=== PATIENT | female | born 1940 | race Caucasian/White ===

== ENCOUNTER 2016-11-28 10:59 | Inpatient (IN) ==
[2016-11-28] MEDS ORDERED: 0.9 % Sodium Chloride 1,000 ML IVC ONE (11:13)
[2016-11-28] MEDS ORDERED: Ondansetron 4 MG/2 ML VIAL IVP ONE (11:13)
[2016-11-28] MEDS ORDERED: *HR* HYDROmorphone (PF) 1 MG/ML SYRINGE IVP ONE (11:31)
--- NOTE | 2016-11-28 11:43 | Emergency Department Note ---
Disposition Clinical Impression: Enteritis, Neutropenic fever Disposition: Admitted As Inpatient Referrals: Rene Jacob Jr, MD [Primary Care Provider] - Forms: Work/School Release, ED Satisfaction Letter Time of Disposition: 13:02 General Adult HPI - General Chief complaint: ED General Medical Stated complaint: Dehydration- [facility] Time Seen by Provider: 11/28/16 11:09 Source: patient Limitations: no limitations Nursing Notes Reviewed: Yes Vital Signs Reviewed: Yes - History of Present Illness HPI Narrative: 76 year old female present to the ED with complaints of fever and LLQ abdoinal pain. Letha sates that she has panceratic cancer and was at the cancer center today with increaed weakness and nasuea with vomitting for the past few days. She staets that she had a fever of 101F at home and that she also only has on kidney and it is on the left side. Patient states that she presented simliary a few years ago with she had a kidney infection. Letha staes taht pain is located in the LLQ and that it radites in the michael on the left/right side. Ptient states that she was sent from the cancer cener for hydratio ntherapy and admission. Pain Scale: 8 - Related Data Home Medications Medication Instructions Recorded Confirmed Aspirin Enteric Coated [Aspirin EC] 81 mg PO DAILY 07/15/15 11/28/16 Levothyroxine [Synthroid] 100 mcg PO DAILY 07/15/15 11/28/16 Diltiazem CD (24hr) [Cardizem CD] 120 mg PO DAILY 10/30/16 11/28/16 Insulin ASPART [Novolog Flexpen] 0 unit SQ TIDWM PRN 10/30/16 11/28/16 Metoprolol Succinate 200 mg PO DAILY 10/30/16 11/28/16 Lipase/Protease/Amylase [Creon Dr 1 each PO TID 11/21/16 11/28/16 24,000 Units Capsule] Previous Rx's Medication Instructions Recorded Magic Mouthwash [Magic Mouthwash 10 ml PO QID PRN #240 ml 10/30/16 BLM] Ondansetron [Zofran] 4 mg PO Q8HR #90 tablet 10/30/16 Prochlorperazine Maleate 10 mg PO Q8HR PRN #90 tablet 08/15/17 [Compazine] Omeprazole 20 mg PO BID #60 tablet. 10/31/16 Diphenoxylate/Atropine [Lomotil 1 each PO TID PRN #90 tablet 11/01/16 2.5 mg/0.025 mg] HydrOXYzine 10 mg PO TID #30 tablet 11/02/16 Furosemide [Lasix] 20 mg PO DAILY PRN #30 tablet 11/16/16 OxyCODONE Immed Rel [Roxicodone 5 5 mg PO DAILY PRN #30 tablet 11/16/16 MG] Allergies Allergy/AdvReac Type Severity Reaction Status Date / Time duloxetine Allergy Intermediate Nausea Verified 11/28/16 11:08 Constitutional: Reports: fever, chills, weakness. Denies: weight change Eyes: Denies: eye pain, eye discharge, vision change ENT ED: Denies: ear pain, throat pain, dental pain, hearing loss, epistaxis, congestion, dysphagia Cardiovascular: Denies: chest pain, palpitations, dyspnea on exertion, edema, syncope Respiratory: Denies: cough, dyspnea, wheezes, hemoptysis, stridor Gastrointestinal: Reports: abdominal pain, nausea, vomiting. Denies: diarrhea, constipation, hematemesis, melena, hematochezia Genitourinary: Denies: dysuria, frequency, hematuria, discharge Musculoskeletal: Denies: back pain, neck pain, arthralgia, myalgia Integumentary: Denies: rash, abrasion, lesions Neurological: Denies: headache, weakness, numbness, paresthesias, confusion, abnormal gait, vertigo Psychiatric: Denies: anxiety, depression, suicidal thoughts, homicidal thoughts , auditory hallucinations, visual hallucinations Endocrine: Denies: fatigue Hematological/Lymphatic: Denies: easy bleeding, easy bruising Allergic/Immunologic: Denies: facial swelling, urticaria Past Medical History - Past Medical History Medical history: Reports: arthritis, atrial fibrillation, cancer, diabetes, GERD , hyperlipidemia, hypertension, myocardial infarction, thyroid disease Surgical history: Reports: non-contributory Psychiatric history: Reports: no psych history - Social History Smoking Status: Never smoker Smokeless Tobacco Status: No Alcohol use: Reports: none Drug use: Reports: none Physical Exam - General Limitations: no limitations General appearance: alert, in no apparent distress, cachectic - Head Head exam: atraumatic, normocephalic, normal inspection - Eye Eye exam: Present: normal appearance, PERRL, EOMI - Expanded Eye Exam Pupils: Left: reactive - ENT ENT exam: normal exam, normal oropharynx, mucous membranes moist - Expanded ENT Exam External ear exam: Present: normal external inspection Mouth exam: Present: normal external inspection Teeth exam: Present: normal inspection Throat exam: Present: normal inspection - Neck Neck exam: Present: normal inspection, full ROM, trachea midline - Chest Chest inspection: Present: normal inspection, symmetric chest wall rise - Respiratory Respiratory exam: Present: normal lung sounds bilaterally - Cardiovascular Cardiovascular exam: Present: regular rate, normal rhythm, normal heart sounds - Abdominal Exam Abdominal exam: Present: soft, tenderness, normal bowel sounds. Absent: Non- Tender, distention, guarding, rebound, rigidity, Todd's sign, Rovsing's sign, tenderness at McBurney's Point Abdominal tenderness: Present: LLQ, moderate - Extremities Exam Extremities exam: Present: normal inspection, full ROM. Absent: tenderness, pedal edema - Expanded Upper Extremity Exam Shoulder exam: Present: normal inspection, full ROM Arm exam: Present: normal inspection, full ROM Elbow exam: Present: normal inspection, full ROM Forearm/Wrist exam: Present: normal inspection, full ROM Hand exam: Present: normal inspection, full ROM Vascular exam: Normal: capillary refill, radial pulse - Expanded Lower Extremity Exam Hip/Pelvis exam: Present: normal inspection, full ROM Upper leg exam: Present: normal inspection, full ROM Knee exam: Present: normal inspection, full ROM Lower leg exam: Present: normal inspection, full ROM Ankle exam: Present: normal inspection, full ROM Foot/toe exam: Present: normal inspection, full ROM Neurovascular/Tendon exam: Absent: motor deficit, sensory deficit, tendon deficit - Back Exam Back exam: Present: normal inspection, full ROM. Absent: tenderness - Neurological Exam Neurological exam: Present: alert, oriented X3 - Expanded Neurological Exam Patient oriented to: Present: person, place, time Coma Scale Eye Opening: Spontaneous Coma Scale Motor Response: Obeys Commands Coma Scale Verbal Response: Oriented Coma Scale Total: 15 - Psychiatric Psychiatric exam: Present: normal affect, normal mood - Skin Skin exam: Present: warm, dry, intact, normal color Course Course Narrative: we will do abdominal pain workup in addittion to r/o sepsis and IVF/dilaudid/ zofran for relief. noncotnrast CT due to solitary kidney - Reevaluation(s) Reevaluation #1: updated patient on results. WE will admit to medicine, cipro/flagyl therapy. she adds to the hitory stating that she has had diarrhea for the pat 3-4 days as well. Time: 13:02 - Consultations Consultation #1: discussed case wtih Dr Calzada and he accepts patinet to his service. Time: 13:02 Vital Signs Temperature 97.7 F 11/28/16 11:05 Pulse Rate 89 11/28/16 11:05 Respiratory Rate 14 11/28/16 11:05 Blood Pressure 117/57 11/28/16 11:05 O2 Sat by Pulse Oximetry 98 11/28/16 11:05 Temperature 97.7 F 11/28/16 11:05 Pulse Rate 83 11/28/16 12:41 Respiratory Rate 17 11/28/16 12:41 Blood Pressure 119/57 11/28/16 12:41 O2 Sat by Pulse Oximetry 99 11/28/16 12:41 Oxygen Delivery Oxygen Delivery Nasal Cannula Medical Decision Making - Lab Data Result diagrams: 11/28/16 11:35 11/28/16 11:35 Lab Results 11/28/16 11/28/16 11/28/16 Range/Units 11:35 11:35 11:35 WBC 2.5 L D (4.3-11.1) K/mcL RBC 2.93 L (3.82-4.97) M/mcL Hgb 9.4 L (11.5-15.4) g/dL Hct 27.3 L (35.3-44.9) % MCV 93.2 (83.0-100.0) fL MCH 32.1 (28.0-33.3) pg MCHC 34.4 (31.6-35.5) g/dL RDW 13.6 (11.5-14.5) % Plt Count 194 D (140-400) K/mcL MPV 9.6 (9.4-12.4) fL Seg Neutrophils % 26.0 % Band Neutrophils % 6.0 H (0-4) % Lymphocytes % 60.0 % Monocytes % 6.0 % Metamyelocytes % 2.0 H (0) % Neutrophils # 0.8 L (1.6-8.9) K/mcL Lymphocytes # 1.5 (0.6-4.6) K/mcL Monocytes # 0.2 (0.0-1.3) K/mcL Nucleated RBCs/100 WBC 3.6 H (0) /100 WBC Reactive Lymphocytes Present A (Not Present) Toxic Granulation Present A (Not Present) Dohle Bodies Present A (Not Present) Platelet Estimate Normal (Normal) PT 14.4 H (9.4-12.1) Seconds INR 1.3 APTT 26.4 (26.0-36.0) Seconds Sodium 126 L (136-145) mEq/L Potassium 3.4 L (3.5-4.5) mEq/L Chloride 96 L (98-109) mEq/L Carbon Dioxide 23 (19-29) mEq/L BUN 16 (7-20) mg/dL Creatinine 0.75 (0.57-1.11) mg/dL Est GFR ( Amer) > 60 (> 60) Est GFR (Non-Af Amer) > 60 (> 60) BUN/Creatinine Ratio 21 (6-26) Glucose 153 H (70-99) mg/dL Calculated Osmolality 266 L (280-300) Lactic Acid (0.5-2.2) mmol/L Calcium 7.9 L (8.6-10.8) mg/dL Total Bilirubin 0.9 (0.2-1.2) mg/dL Direct Bilirubin 0.7 H (0.0-0.5) mg/dL Indirect Bilirubin 0.2 (0.0-1.2) mg/dL AST 45 H (5-34) Units/L ALT 49 (0-55) Units/L Alkaline Phosphatase 108 (38-126) Units/L Troponin I (0-0.03) ng/mL Serum Total Protein 4.9 L (6.0-8.3) g/dL Albumin 1.8 L (3.5-5.0) g/dL Globulin 3.1 (2.4-3.5) g/dL Albumin/Globulin Ratio 0.6 L (1.1-2.2) Amylase 8 L (25-125) Units/L Lipase < 10 (8-78) Units/L 11/28/16 11/28/16 Range/Units 11:35 11:35 WBC (4.3-11.1) K/mcL RBC (3.82-4.97) M/mcL Hgb (11.5-15.4) g/dL Hct (35.3-44.9) % MCV (83.0-100.0) fL MCH (28.0-33.3) pg MCHC (31.6-35.5) g/dL RDW (11.5-14.5) % Plt Count (140-400) K/mcL MPV (9.4-12.4) fL Seg Neutrophils % % Band Neutrophils % (0-4) % Lymphocytes % % Monocytes % % Metamyelocytes % (0) % Neutrophils # (1.6-8.9) K/mcL Lymphocytes # (0.6-4.6) K/mcL Monocytes # (0.0-1.3) K/mcL Nucleated RBCs/100 WBC (0) /100 WBC Reactive Lymphocytes (Not Present) Toxic Granulation (Not Present) Dohle Bodies (Not Present) Platelet Estimate (Normal) PT (9.4-12.1) Seconds INR APTT (26.0-36.0) Seconds Sodium (136-145) mEq/L Potassium (3.5-4.5) mEq/L Chloride (98-109) mEq/L Carbon Dioxide (19-29) mEq/L BUN (7-20) mg/dL Creatinine (0.57-1.11) mg/dL Est GFR ( Amer) (> 60) Est GFR (Non-Af Amer) (> 60) BUN/Creatinine Ratio (6-26) Glucose (70-99) mg/dL Calculated Osmolality (280-300) Lactic Acid 1.3 (0.5-2.2) mmol/L Calcium (8.6-10.8) mg/dL Total Bilirubin (0.2-1.2) mg/dL Direct Bilirubin (0.0-0.5) mg/dL Indirect Bilirubin (0.0-1.2) mg/dL AST (5-34) Units/L ALT (0-55) Units/L Alkaline Phosphatase (38-126) Units/L Troponin I 0.00 (0-0.03) ng/mL Serum Total Protein (6.0-8.3) g/dL Albumin (3.5-5.0) g/dL Globulin (2.4-3.5) g/dL Albumin/Globulin Ratio (1.1-2.2) Amylase (25-125) Units/L Lipase (8-78) Units/L - EKG Data EKG #1 EKG attestation: Yes I reviewed and interpreted this EKG. EKG results narrative: atrial fibrillation rate controlled at 90. NO STEMI. no old ekg. 1123
[2016-11-28 11:47] LABS: Hematocrit 27.3 % (35.3-44.9); Hemoglobin 9.4 g/dL (11.5-15.4); Mean Corpuscular HGB Conc 34.4 g/dL (31.6-35.5); Mean Corpuscular Hemoglobin 32.1 pg (28.0-33.3); Mean Corpuscular Volume 93.2 fL (83.0-100.0); Mean Platelet Volume 9.6 fL (9.4-12.4); Nucleated Red Blood Cells 3.6 /100 WBC (0); Platelet Count 194 K/mcL (140-400); Red Blood Count 2.93 M/mcL (3.82-4.97); Red Cell Distribution Width 13.6 % (11.5-14.5)
[2016-11-28 11:54] LABS: INR 1.3; Prothrombin Time 14.4 Seconds (9.4-12.1)
[2016-11-28 11:57] LABS: Activated Partial Thrombo Time 26.4 Seconds (26.0-36.0)
[2016-11-28 12:03] LABS: Alanine Aminotransferase 49 Units/L (0-55); Albumin/Globulin Ratio 0.6 (1.1-2.2); Alkaline Phosphatase 108 Units/L (38-126); Amylase 8 Units/L (25-125); Aspartate Amino Transferase 45 Units/L (5-34); BUN/Creatinine Ratio 21 (6-26); Bilirubin,Direct 0.7 mg/dL (0.0-0.5); Bilirubin,Indirect 0.2 mg/dL (0.0-1.2); Bilirubin,Total 0.9 mg/dL (0.2-1.2); Blood Urea Nitrogen 16 mg/dL (7-20); Calcium 7.9 mg/dL (8.6-10.8); Carbon Dioxide 23 mEq/L (19-29); Chloride 96 mEq/L (98-109); Globulin 3.1 g/dL (2.4-3.5); Glucose 153 mg/dL (70-99); Osmolality,Calculated 266 (280-300); Potassium 3.4 mEq/L (3.5-4.5); Sodium 126 mEq/L (136-145); Total Protein 4.9 g/dL (6.0-8.3); eGFR For African Americans > 60 (> 60); eGFR For Non-African Americans > 60 (> 60)
[2016-11-28 12:04] LABS: Albumin 1.8 g/dL (3.5-5.0); Lipase < 10 Units/L (8-78)
[2016-11-28] MEDS ORDERED: MetroNIDAZOLE 500 MG/100 ML 500 MG/100 ML BAG IVPB ONE (12:13)
[2016-11-28 12:38] LABS: Lymphocytes # 1.5 K/mcL (0.6-4.6); Monocytes # 0.2 K/mcL (0.0-1.3); Neutrophils # 0.8 K/mcL (1.6-8.9)
[2016-11-28 12:39] LABS: Reactive Lymphocytes Present (Not Present)
[2016-11-28 12:40] LABS: Toxic Granulation Present (Not Present)
[2016-11-28 12:41] LABS: Dohle Bodies Present (Not Present); Platelet Estimate Normal (Normal)
[2016-11-28] MEDS ORDERED: Acetaminophen 325 MG TABLET PO PRN (15:02)
[2016-11-28] MEDS ORDERED: *HR* HYDROmorphone (PF) 1 MG/ML SYRINGE IVP PRN (15:02)
[2016-11-28] MEDS ORDERED: Naloxone 0.4 MG/ML INJ IVP PRN (15:02)
[2016-11-28] MEDS ORDERED: Diphenoxylate/Atropine 1 TAB TABLET PO PRN (15:09)
[2016-11-28] MEDS ORDERED: Magic Mouthwash 10 ML UD Cup PO PRN (15:09)
[2016-11-28] MEDS ORDERED: Furosemide 20 MG/2 ML VIAL IVP ONE (15:12)
[2016-11-28] MEDS ORDERED: *HR* Dextrose 50 % in Water (Syg) 50 ML SYRINGE IVP PRN (15:21)
[2016-11-28] MEDS ORDERED: Dextrose Gel 15 GM PO PRN ×2 (15:21)
[2016-11-28] MEDS ORDERED: D5% in Water 1,000 ML IVC PRN (15:21)
--- NOTE | 2016-11-28 15:27 | Internal Med History&Physical ---
<Alfonso Navas - Last Filed: 11/28/16 16:16> Date of Encounter: 11/28/16 Time of Encounter: 14:00 Assessment and Plan (1) Enteritis Current visit: Yes Status: Acute Patient presents with diagnosis of enteritis-related ileus. Patient reports several episodes of diarrhea. CT of the abdomen/pelvis without contrast today she is mildly dilated loops of small bowel within the proximal jejunum in the left mid abdomen with mild perienteric stranding. No discrete transition point is identified. Findings favor an ileus related to enteritis rather than small bowel obstruction. Patient administered IV Flagyl and IV ciprofloxacin in the ED. We will continue IV ciprofloxacin 400 mg every 12 and IV Flagyl 500 mg every 8. 0.9 NS @ 75 mL/HR. Patient to be nothing by mouth except for medications with diet to be advanced as tolerated. Stair-step pain medications for pain management. IVP Zofran every 6 when necessary for nausea and vomiting. C. diff toxin ordered. Follow-up labs to monitor infection status. Will monitor patient's I&O and daily weight. (2) Nausea & vomiting Current visit: Yes Status: Acute Patient presents with acute nausea and vomiting related to current enteritis. IVP Zofran every 6 when necessary ordered. Monitor I&O and daily weight. Patient to be nothing by mouth except medications with diet to be advanced as tolerated. Qualifiers: Vomiting type: cyclical vomiting Vomiting Intractability: non-intractable Qualified Code(s): G43.A0 - Cyclical vomiting, not intractable (3) Atrial fibrillation Current visit: Yes Status: Chronic Patient presents with history of chronic atrial fibrillation. On examination, patient is currently in A. fib without RVR. We will continue patient's by mouth Cardizem. Patient placed on continuous cardiac telemetry. Qualifiers: Atrial fibrillation type: chronic Qualified Code(s): I48.2 - Chronic atrial fibrillation (4) Diabetes Current visit: Yes Status: Chronic Patient presents with history of chronic diabetes that she reports as controlled with oral antihyperglycemic medications. Will hold patient's medications and administer low-dose correction insulin sliding scale and hypoglycemia protocol. Blood glucose monitoring before meals at bedtime. A1c ordered. Qualifiers: Diabetes mellitus type: type 2 Diabetes mellitus complication status: without complication Diabetes mellitus intermodal customer service insulin use: without intermodal customer service use Qualified Code(s): E11.9 - Type 2 diabetes mellitus without complications (5) GERD (gastroesophageal reflux disease) Current visit: Yes Status: Chronic Patient presents with history of chronic gastroesophageal reflux disease. IVP Zofran every 6 when necessary and IVP Protonix 40 mg twice a day ordered. Qualifiers: Esophagitis presence: esophagitis presence not specified Qualified Code(s) : K21.9 - Gastro-esophageal reflux disease without esophagitis (6) HTN (hypertension) Current visit: Yes Status: Chronic Patient presents with history of chronic hypertension. Will monitor patient and VS and continue patient's metoprolol. Qualifiers: Hypertension type: essential hypertension Qualified Code(s): I10 - Essential (primary) hypertension (7) Thyroid disease Current visit: Yes Status: Chronic Patient presents with history of thyroid disease and removal of nodules from thyroid previously. Will continue patient's Synthroid. (8) Pancreatic cancer Current visit: Yes Status: Chronic Patient presents with history of pancreatic cancer. Patient is currently followed by [facility]. Qualifiers: Pancreatic malignancy location: unspecified Qualified Code(s): C25.9 - Malignant neoplasm of pancreas, unspecified (9) DVT prophylaxis Current visit: Yes Status: Chronic Patient to be placed on DVT prophylaxis due to current admission protocol and bedrest status. Heparin 5000 units SQ every 12 hours. Internal Medicine - H&P: HPI Chief complaint: Abdominal/Left Flank Pain Admitted From: Emergency Dept Plans for Post Hospital Care: Home History of present illness: Ms. Workman is a 76 year old female with medical history of arthritis, atrial fibrillation, pancreatic cancer, diabetes controlled with oral anti- hyperglycemics, GERD, HLD, HTN, and thyroid disease presents from the ED with chief complaint of abdominal pain and left-sided flank pain. Patient reports she was at the cancer Center today with increased weakness due to nausea and vomiting for the past several days. Patient states she had similar symptoms when she had a kidney infection previously. Patient reports fever of 101 at home, chills, weakness. Patient denies chest pain, cough, dyspnea, unusual bleeding, headache, numbness, tingling, dyspnea, changes in vision, presyncope, or syncope. On admission, patient's vital signs include temperature of 90 7.7F , heart rate of 89 bpm, respiratory rate 14, BP of 117/57, and SPO2 of 98% on 2 L via nasal cannula. Patient's unusual labs include Hgb of 9.4 and HCT of 27.3, down from 10.3 and 28.8 on 10/30/16. Other abnormal findings included sodium of 126, potassium of 3.4, chloride of 96, glucose of 153, calcium of 7.9, direct bilirubin of 0.7, AST of 45, serum total protein of 4.9, albumin of 1.8, albumin /globulin ratio 0.6, and amylase of 8. Patient's initial lactic acid was 1.3 and troponin 0.00. On examination, patient's HR is in atrial fibrillation w/o RVR, lungs are clear bilaterally, and there is 2+ pitting edema of the bilateral LEs. Patient is hemodynamically stable and reports no acute distress with the exception of weakness and abdominal pain. Patient states the Zofran and Dilaudid helped to ease her pain. Information taken from patient, chart review, and previous medical records and imaging. Ms. Workman is at high risk for further morbidity based on current symptoms and risk factors and will be placed as inpatient. Time spent with patient greater than 40 minutes. Past Med Surg Social Fam HX - Past Medical History Source: patient, old records reviewed Medical history: arthritis, atrial fibrillation, cancer, diabetes, GERD, hyperlipidemia, hypertension, myocardial infarction, thyroid disease Psychiatric history: no psych history - Past Surgical History Surgical History: hysterectomy (Total), other (Nephrectomy of right kidney, Thyroid nodule removal) - Social History Smoking Status: Never smoker Smokeless Tobacco Status: No Alcohol use: none Drug use: none Current living situation: Home Activity Level: Independent ambulation Recent Out of Country Travel Within the Last 8 Weeks: No Exposure or Possible Exposure to Illness During Travel: No - Family History Father Race: Family Member Ethnicity: Non- Living Status: Age at : 66 Cause of : Blood clot following surgery Hx Family Endocrine Disorder: Yes (DM) Mother Race: Family Member Ethnicity: Non- Living Status: Age at : 84 Hx Family Cardiac Disorders: Yes (Heart murmur) Hx Family Neurologic Disorders: Yes (Alzheimer's disease) Brother Race: Family Member Ethnicity: Non- Living Status: Still Living Hx Family Cardiac Disorders: Yes (CAD, pacemaker) Sister Race: Family Member Ethnicity: Non- Living Status: Age at : 66 Cause of : Ovarian cancer Hx Family Cancer: Yes (Ovarian) Internal Medicine - H&P: Meds Aspirin Enteric Coated [Aspirin EC] 81 mg PO DAILY 07/15/15 [History] Levothyroxine [Synthroid] 100 mcg PO DAILY 07/15/15 [History] Diltiazem CD (24hr) [Cardizem CD] 120 mg PO DAILY 10/30/16 [History] Insulin ASPART [Novolog Flexpen] 0 unit SQ TIDWM PRN 10/30/16 [History] Magic Mouthwash [Magic Mouthwash BLM] 10 ml PO QID PRN #240 ml 10/30/16 [Rx] Metoprolol Succinate 200 mg PO DAILY 10/30/16 [History] Ondansetron [Zofran] 4 mg PO Q8HR #90 tablet 10/30/16 [Rx] Prochlorperazine Maleate [Compazine] 10 mg PO Q8HR PRN #90 tablet 10/30/16 [Rx] Omeprazole 20 mg PO BID #60 tablet. 10/31/16 [Rx] Diphenoxylate/Atropine [Lomotil 2.5 mg/0.025 mg] 1 each PO TID PRN #90 tablet [Rx] HydrOXYzine 10 mg PO TID #30 tablet 11/02/16 [Rx] Furosemide [Lasix] 20 mg PO DAILY PRN #30 tablet 11/16/16 [Rx] OxyCODONE Immed Rel [Roxicodone 5 MG] 5 mg PO DAILY PRN #30 tablet 11/16/16 [Rx] Lipase/Protease/Amylase [Jodi Goff 24,000 Units Capsule] 1 each PO TID 11/21/16 [ History] 3 Allergy/AdvReac Type Severity Reaction Status Date / Time duloxetine Allergy Intermediate Nausea Verified 11/28/16 11:08 All Systems PM: A 10-system review of systems was performed and is negative for pertinent findings except as documented above in the HPI. - Constitutional Constitutional: as per HPI, fever(s), weakness, no chills, no night sweats - EENT Eyes: no change in vision, no discharge, no pain, no photophobia Ears: no ear discharge, no ear pain, no tinnitus Nose, mouth and throat: no dysphagia, no nasal discharge, no neck pain, no sore throat - Breasts Breasts: as per HPI - Cardiovascular Cardiovascular ROS IM: as per HPI, irregular heart rhythm - Respiratory Respiratory: no cough, no dyspnea, no wheezing, no excessive phlegm production - Gastrointestinal Gastrointestinal: as per HPI, abdominal pain, diarrhea, nausea, vomiting - Genitourinary Genitourinary: as per HPI, flank pain (Left), no change in urinary stream, no dysuria, no hematuria Menstruation: as per HPI, post hysterectomy - Musculoskeletal Musculoskeletal ROS IM: no numbness, no tingling - Integumentary Integumentary IM: no rash, no unusual bruising - Neurological Neurological ROS: no confusion, no convulsions, no focal weakness, no numbness, no tingling, no tremor(s) - Psychiatric Psychiatric: as per HPI - Endocrine Endocrine IM: as per HPI - Hematologic/Lymphatic Hematologic/Lymphatic: no easy bruising - Allergic/Immunologic Allergic/Immunologic: as per HPI - Constitutional Vitals: Temp Pulse Resp BP Pulse Ox 97.7 F 83 18 104/49 99 11/28/16 11:05 11/28/16 12:41 11/28/16 14:03 11/28/16 14:03 11/28/16 12:41 General appearance: Present: cooperative, mild distress, A&O X 3, pleasant, obese, answers questions appropriately - Head Head exam: Present: atraumatic, normocephalic - Eye Eye exam: Present: PERRL, conjuntiva pink, sclera anicteric Pupils: Present: PERRL - ENT ENT exam: Present: normal exam, normal external ear exam - Neck Neck exam general surgery: Present: normal inspection, supple, trachea midline. Absent: lymphadenopathy - Respiratory Respiratory exam: Present: CTAB. Absent: accessory muscle use, rales, rhonchi, wheezes - Cardiovascular Cardiovascular exam: Present: irregular rhythm - GI/Abdominal GI/Abdominal exam: Present: diminished bowel sounds, normal bowel sounds, soft, tenderness - Rectal Rectal exam: Present: deferred - Additional comments: exam deferred. - Extremities Exam Extremities exam: Present: warm, radial pulses palpable and symmetrical. Absent : calf tenderness, cyanotic, pedal edema - Back Exam Back exam: Present: normal inspection - Neurological Exam Neurological exam: Present: CN II-XII intact, oriented X3, no focal deficits. Absent: pronater drift, facial droop, speech deficit - Psychiatric Psychiatric exam: Present: normal affect, normal mood - Skin Skin exam: Present: dry, intact Internal Med - H&P Results - Labs CBC & Chem 7: 11/28/16 11:35 11/28/16 11:35 - EKG Data Prior EKG available for review: no EKG comments: 11/28/16 15:55 EKG dated 11/28/16 shows atrial fibrillation with borderline right axis deviation and incomplete right bundle branch block. <Jeyson Calzada - Last Filed: 11/28/16 18:31> Date of Encounter: 11/28/16 Internal Medicine - H&P: HPI History of present illness: Ms. Workman is a 76 year old female All Systems PM: A 10-system review of systems was performed and is negative for pertinent findings except as documented above in the HPI. - Constitutional Vitals: Temp Pulse Resp BP Pulse Ox 97.7 F 100 16 123/69 97 11/28/16 16:11 11/28/16 16:11 11/28/16 16:11 11/28/16 16:11 11/28/16 16:11 Internal Med - H&P Results - Labs CBC & Chem 7: 11/28/16 11:35 11/28/16 11:35 - Attending Attestation I personally interviewed and examined this pt. I agree with the findings, assessment and plan of MEHRAN Navas. Suspect infectious colitis and favor Cipro/Flagyl. Doubt ischemic colitis. No hx XRT. I discussed the case at length with pt and family. I did increase her pain meds. Closely monitor.
[2016-11-28] MEDS: 0.9 % Sodium Chloride 1,000 ML IVC SCH (15:28)
[2016-11-28] MEDS ORDERED: Potassium Chloride 20 MEQ, Lidocaine 1% 2 ML in D5% in Water 250 ML IVPB ONE (16:21)
[2016-11-28] MEDS: *HR* HYDROcodone/Acet 5/325 mg TABLET PO PRN (16:55)
[2016-11-28] MEDS: *HR* Heparin 5,000 UNIT/ML VIAL SQ SCH (16:55)
[2016-11-28] MEDS: MetroNIDAZOLE 500 MG/100 ML 500 MG/100 ML BAG IVPB SCH (17:06)
[2016-11-28] MEDS: *HR* HYDROmorphone (PF) 1 MG/ML SYRINGE IVP PRN ×2 (18:39→21:00)
[2016-11-28] MEDS: Insulin LISPRO 300 UNITS/3 ML VIAL SQ SCH (18:40)
[2016-11-28 20:05] LABS: Bilirubin,Urine Negative (Negative); Blood,Urine Negative (Negative); Clarity,Urine Cloudy (Clear); Color,Urine Yellow (Yellow); Glucose,Urine (UA) Normal (Normal); Ketones,Urine Negative (Negative); Leukocyte Esterase,Urine Negative (Negative); Nitrite,Urine Positive (Negative); Protein,Urine Negative (Neg-Trace); Specific Gravity,Urine 1.015 (1.010-1.025); Urobilinogen,Urine Normal (Normal)
[2016-11-28 20:07] LABS: Bacteria,Urine Many per hpf (None-Few); Hyaline Casts,Urine None Seen per lpf (None-Few); RBC,Urine 0-3 per hpf (0-3); Squamous Epithelial Cell,Urine Many per lpf (None-Few)
[2016-11-28] MEDS: Pantoprazole 40 MG VIAL IVP SCH (20:20)
[2016-11-28] MEDS ORDERED: Insulin LISPRO 300 UNITS/3 ML VIAL SQ SCH (21:00)
[2016-11-29] MEDS: MetroNIDAZOLE 500 MG/100 ML 500 MG/100 ML BAG IVPB SCH ×4 (00:09→23:31)
[2016-11-29] MEDS: *HR* HYDROmorphone (PF) 1 MG/ML SYRINGE IVP PRN ×8 (00:12→18:22)
[2016-11-29] MEDS: Ondansetron 4 MG/2 ML VIAL IVP PRN ×2 (00:12→08:57)
[2016-11-29 05:04] LABS: INR 1.5
[2016-11-29 05:06] LABS: Hematocrit 26.4 % (35.3-44.9); Hemoglobin 9.2 g/dL (11.5-15.4); Immature Platelets 3.6 % (1.1-6.1); Mean Corpuscular HGB Conc 34.8 g/dL (31.6-35.5); Mean Corpuscular Hemoglobin 32.9 pg (28.0-33.3); Mean Corpuscular Volume 94.3 fL (83.0-100.0); Mean Platelet Volume 10.3 fL (9.4-12.4); Monocytes # 0.5 K/mcL (0.0-1.3); Nucleated Red Blood Cells 1.3 /100 WBC (0); Platelet Count 190 K/mcL (140-400); Red Cell Distribution Width 13.8 % (11.5-14.5)
[2016-11-29 05:07] LABS: Activated Partial Thrombo Time 24.7 Seconds (26.0-36.0)
[2016-11-29] MEDS: *HR* Heparin 5,000 UNIT/ML VIAL SQ SCH ×2 (05:42→18:22)
[2016-11-29 06:18] LABS: Lymphocytes # 1.7 K/mcL (0.6-4.6); Neutrophils # 1.7 K/mcL (1.6-8.9); Platelet Estimate Normal (Normal)
[2016-11-29 06:32] LABS: Alanine Aminotransferase 55 Units/L (0-55); Albumin/Globulin Ratio 0.6 (1.1-2.2); Alkaline Phosphatase 109 Units/L (38-126); Aspartate Amino Transferase 53 Units/L (5-34); BUN/Creatinine Ratio 18 (6-26); Bilirubin,Total 0.8 mg/dL (0.2-1.2); Blood Urea Nitrogen 14 mg/dL (7-20); Calcium 7.8 mg/dL (8.6-10.8); Carbon Dioxide 20 mEq/L (19-29); Chloride 99 mEq/L (98-109); Chol/HDL Ratio 4.3 (0-4.9); Cholesterol 103 mg/dL (< 200); Globulin 2.8 g/dL (2.4-3.5); Glucose 120 mg/dL (70-99); HDL Cholesterol 24 mg/dL (40-59); LDL Cholesterol,Calculated 56 mg/dL (0-99); Osmolality,Calculated 266 (280-300); Potassium 3.1 mEq/L (3.5-4.5); Sodium 127 mEq/L (136-145); Total Protein 4.5 g/dL (6.0-8.3); Triglycerides 115 mg/dL (< 150); eGFR For African Americans > 60 (> 60); eGFR For Non-African Americans > 60 (> 60)
[2016-11-29 06:38] LABS: Albumin 1.7 g/dL (3.5-5.0)
[2016-11-29] MEDS: Diltiazem CD (24hr) 120 MG CAPSULE PO SCH (07:47)
[2016-11-29] MEDS: Aspirin Enteric Coated 81 MG Tablet PO SCH (07:47)
[2016-11-29] MEDS: Pantoprazole 40 MG VIAL IVP SCH ×2 (07:48→19:45)
[2016-11-29] MEDS: 0.9 % Sodium Chloride 1,000 ML IVC SCH (07:54)
[2016-11-29] MEDS: Insulin LISPRO 300 UNITS/3 ML VIAL SQ SCH ×5 (07:55→19:39)
[2016-11-29] MEDS ORDERED: Potassium Chloride 40 MEQ, Lidocaine 1% 2 ML in D5% in Water 500 ML IVPB ONE (08:39)
[2016-11-29] MEDS ORDERED: 0.9 % Sodium Chloride 1,000 ML IVC SCH ×2 (08:40→16:15)
[2016-11-29] MEDS ORDERED: Metoprolol XL (24 HR) Succ 50 MG TAB.ER.24H PO SCH ×2 (09:00→16:40)
[2016-11-29] MEDS: Magnesium Sulfate 2 GM in D5% in Water 100 ML IVPB SCH ×2 (10:11→11:51)
--- NOTE | 2016-11-29 12:06 | Electrocardiograph Report ---
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
--- NOTE | 2016-11-29 16:25 | Internal Med Progress Note ---
Date of Encounter: 11/29/16 Time of Encounter: 10:10 - Assessment and plan (1) Hyponatremia Current Visit: Yes Status: Acute Assessment and plan: serum osm: 265.7 f/u urine osm and urine Na low serum osm hyponatremia in the setting of pancreatic ca, hypoalbuminema, and volume overload nephrology consultation requested, patient may benefit from 3%NS which will be started after nephrology evaluation and transfer of the patient to a higher acuity floor pt to be transferred to the ICU for closely monitoring continue to check sodium levels q6h patient currently at baseline mental status, will continue to closely monitory (2) Enteritis Current Visit: Yes Status: Acute Assessment and plan: continue IV abx will start clear liquid diet and advance as tolerated pt reports of improvement in abd discomfort from previous day (3) Electrolyte abnormality Current Visit: Yes Status: Acute Assessment and plan: Hypomagnesemia and Hypokalemia Mg and K supplemented will closely monitor electrolytes and replace as needed (4) Diabetes Current Visit: Yes Status: Chronic Assessment and plan: continue ss insulin algorithm monitor FS and BG accuchecks q4h while NPO and ACHS once diet is resumed Qualifiers: Diabetes mellitus type: type 2 Diabetes mellitus complication status: without complication Diabetes mellitus usp insulin use: without usp use Qualified Code(s): E11.9 - Type 2 diabetes mellitus without complications (5) HLD (hyperlipidemia) Current Visit: Yes Status: Chronic Qualifiers: Hyperlipidemia type: pure hypercholesterolemia Qualified Code(s): E78.00 - Pure hypercholesterolemia, unspecified; E78.0 - Pure hypercholesterolemia (6) HTN (hypertension) Current Visit: Yes Status: Chronic Assessment and plan: Noted to be hypotensive will hold antihypertensive medications if SBP<100 will closely monitor BP Qualifiers: Hypertension type: essential hypertension Qualified Code(s): I10 - Essential (primary) hypertension (7) DVT prophylaxis Current Visit: Yes Status: Chronic Assessment and plan: Heparin SQ (8) Pancreatic cancer Current Visit: Yes Status: Chronic Assessment and plan: pt currently undergoing chemotherapy, last chemo session was on November pt to resume treatment as outpatient Qualifiers: Pancreatic malignancy location: unspecified Qualified Code(s): C25.9 - Malignant neoplasm of pancreas, unspecified - Time Spent With Patient Greater than 35 minutes - Subjective Interval history: Patient is a 76y/o female with PMH of pancreatic cancer recently undergoing chemotherapy, last chemotherapy was on November. She is admitted for diffuse abdominal pain secondary to Enteritis. She is started on empiric IV abx and bowel rest. She was also found to have hyponatremia with b/l LE pitting edema. Patient was evaluated by me numerous times throughout the day. She continues to have lose stools (negative for C-diff) and reports of feeling weak and tired. Her IV fluids were discontinued due to the worsening edema and given low serum osm with low albumin, there was concern for SIADH. Her fluids were discontinued , however she continued to have worsening hyponatremia despite fluid restriction. Nephrology is consulted for hyponatremia. Patient may require 3% NS given current Na levels, therefore she will be transferred to the ICU for close monitoring. - Constitutional Vitals: Temp Pulse Resp BP Pulse Ox 97.3 F L 89 16 96/62 97 11/29/16 10:44 11/29/16 10:44 11/29/16 10:44 11/29/16 10:44 11/29/16 10:44 General appearance: Present: cooperative, A&O X 3 (frail appearing elderly female), pleasant, obese, answers questions appropriately - Head Head exam: Present: atraumatic, normocephalic - Eye Eye exam: Present: conjuntiva pink, sclera anicteric - Respiratory Respiratory exam: Absent: respiratory distress, wheezes - Cardiovascular Cardiovascular exam: Present: RRR, +S1, +S2. Absent: diastolic murmur, gallop, rubs, systolic murmur - GI/Abdominal GI/Abdominal exam: Present: normal bowel sounds, soft, no peritoneal signs. Absent: distended, tenderness - Extremities Exam Extremities exam: Present: warm, radial pulses palpable and symmetrical (3+ pitting edema in bilateral lower extremities) - Neurological Exam Neurological exam: Present: alert, oriented X3 Internal Medicine: Result - Labs CBC & Chem 7: 11/29/16 04:50 11/29/16 13:50 Labs: Short CBC 11/29/16 Range/Units 04:50 WBC 3.9 L D (4.3-11.1) K/mcL Hgb 9.2 L (11.5-15.4) g/dL Hct 26.4 L (35.3-44.9) % Plt Count 190 (140-400) K/mcL Neutrophils # 1.7 (1.6-8.9) K/mcL BMP 11/29/16 11/29/16 04:50 13:50 Sodium 127 L 125 L Potassium 3.1 L Chloride 99 Carbon Dioxide 20 BUN 14 Creatinine 0.79 Glucose 120 H Calcium 7.8 L Liver Function 11/29/16 Range/Units 04:50 Total Bilirubin 0.8 (0.2-1.2) mg/dL AST 53 H (5-34) Units/L ALT 55 (0-55) Units/L Alkaline Phosphatase 109 (38-126) Units/L Albumin 1.7 L (3.5-5.0) g/dL Urine 11/28/16 Range/Units 20:00 Urine Color Yellow (Yellow) Urine Clarity Cloudy A (Clear) Urine pH 7.0 (5.0-8.0) pH Units Ur Specific [place] 1.015 (1.010-1.025) Urine Protein Negative (Neg-Trace) mg/dL Urine Glucose (UA) Normal (Normal) mg/dL - ABG Interpretation ABG results: PT/INR, D-dimer PT 16.0 Seconds (9.4-12.1) H 11/29/16 04:50 Consult Discharge Plan - Plan Referrals: Rene Jacob Jr, MD [Primary Care Provider] -
--- NOTE | 2016-11-29 18:02 | Nephrology Consult Note ---
Date of Encounter: 11/30/16 Time of Encounter: 17:59 Assessment and Plan (1) Hyponatremia Current Visit: Yes Status: Acute Suspect multifactorial etiology of the hyponatremia. I examined her in the ICU and she was not in extremis, so will hold off on 3% saline. Continue fluid restriction of 1.2L. Check urine 'lytes, TSH, AM Cortisol UA had a dilute SG, so there is likely an SIADH component as well. Will add NaCl 1gm po tid starting tonight. Goal correction is 6-8mEq in the first 24hr. Check PNa q2hr x3. May add Tolvaptan at some point as well. 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 Thank you for consulting the [facility]. (2) Hypomagnesemia Current Visit: Yes Status: Acute Agree with Mag sulfate 2gm IV. Suspect low d/t recent 'lyte wasting from chemo. Checking Mag in AM. (3) Nausea & vomiting Current Visit: Yes Status: Acute S/p recent Chemo Qualifiers: Vomiting type: cyclical vomiting Vomiting Intractability: non-intractable Qualified Code(s): G43.A0 - Cyclical vomiting, not intractable (4) Pancreatic cancer Current Visit: Yes Status: Chronic Likely contributing to SIADH Qualifiers: Pancreatic malignancy location: unspecified Qualified Code(s): C25.9 - Malignant neoplasm of pancreas, unspecified History of Present Illness - Reason for Consult Consult date: 11/29/16 hyponatremia Requesting physician: Nina Crow - Chief Complaint Hyponatremia - History of Present Illness Chiqui Workman is a very pleasant 76 y/o WF with a pmh of Pancreatic Ca s/p recent chemo, N/V and presented with findings of hyponatremia. Nephrology was consulted for hyponatremiia after the PNa started to fall with 09% IVF. There was concern that she may have developed AMS and we discussed 3% saline; however , I saw and examined her in the ICU after finishing my clinic. She and her was discussed that she has a hx of hypothyroidism but no overt gout in her toes. She said that up to about 2 weeks ago she developed cyclical and severe nausea even with sips of water. She said that she thinks she was able to keep her thyroid medication down. She did not affirm any hx of seizures. 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 She follows with [facility]. She denied any FHx of ESRD. Past Med Surg Social Fam HX - Past Medical History Medical history: arthritis, atrial fibrillation, cancer, diabetes, GERD, hyperlipidemia, hypertension, myocardial infarction, thyroid disease Psychiatric history: no psych history - Past Surgical History Surgical History: hysterectomy (Total), other (Nephrectomy of right kidney, Thyroid nodule removal) - Social History Smoking Status: Never smoker Smokeless Tobacco Status: No Alcohol use: none Drug use: none - Family History Father Race: Family Member Ethnicity: Non- Living Status: Age at : 66 Cause of : Blood clot following surgery Hx Family Endocrine Disorder: Yes (DM) Mother Race: Family Member Ethnicity: Non- Living Status: Age at : 84 Hx Family Cardiac Disorders: Yes (Heart murmur) Hx Family Neurologic Disorders: Yes (Alzheimer's disease) Brother Race: Family Member Ethnicity: Non- Living Status: Still Living Hx Family Cardiac Disorders: Yes (CAD, pacemaker) Sister Race: Family Member Ethnicity: Non- Living Status: Age at : 66 Cause of : Ovarian cancer Hx Family Cancer: Yes (Ovarian) Medications and Allergies Aspirin Enteric Coated [Aspirin EC] 81 mg PO DAILY 07/15/15 [History] Levothyroxine [Synthroid] 100 mcg PO DAILY 07/15/15 [History] Diltiazem CD (24hr) [Cardizem CD] 120 mg PO DAILY 10/30/16 [History] Insulin ASPART [Novolog Flexpen] 0 unit SQ TIDWM PRN 10/30/16 [History] Magic Mouthwash [Magic Mouthwash BLM] 10 ml PO QID PRN #240 ml 10/30/16 [Rx] Metoprolol Succinate 200 mg PO DAILY 10/30/16 [History] Ondansetron [Zofran] 4 mg PO Q8HR #90 tablet 10/30/16 [Rx] Prochlorperazine Maleate [Compazine] 10 mg PO Q8HR PRN #90 tablet 10/30/16 [Rx] Omeprazole 20 mg PO BID #60 tablet. 10/31/16 [Rx] Diphenoxylate/Atropine [Lomotil 2.5 mg/0.025 mg] 1 each PO TID PRN #90 tablet [Rx] HydrOXYzine 10 mg PO TID #30 tablet 11/02/16 [Rx] Furosemide [Lasix] 20 mg PO DAILY PRN #30 tablet 11/16/16 [Rx] OxyCODONE Immed Rel [Roxicodone 5 MG] 5 mg PO DAILY PRN #30 tablet 11/16/16 [Rx] Lipase/Protease/Amylase [Jodi Goff 24,000 Units Capsule] 1 each PO TID 11/21/16 [ History] 3 Allergy/AdvReac Type Severity Reaction Status Date / Time duloxetine Allergy Intermediate Nausea Verified 11/28/16 11:08 Review of Systems All Systems: reviewed and no additional remarkable complaints except as stated Exam - Vital Signs Vital signs: Initial Vital Signs Temp Pulse Resp BP Pulse Ox 97.7 F 89 14 117/57 98 11/28/16 11:05 11/28/16 11:05 11/28/16 11:05 11/28/16 11:05 11/28/16 11:05 Vital Signs - Last 8 Hours Temp Pulse Resp BP Pulse Ox 11/29/16 10:44 97.3 F L 89 16 96/62 97 Intake and Output 11/29/16 11/29/16 11/29/16 07:59 15:59 23:59 Intake Total 1300 / 1300 200 / 200 Output Total 0 / 0 Balance 1300 / 1300 200 / 200 Intake: IV Fluids 1300 / 1300 200 / 200 0.9 % Sodium Chloride 1, 1000 / 1000 000 ML @ 75 mls/hr IVC . [id number] [facility] Rx#: [id number] Cipro Premix 400 MG/200 200 / 200 ML 400 mg In 200 ml @ 200 mls/hr IVPB Q12H [facility] Rx# :[id number] Magnesium Sulfate 2 GM In 100 / 100 Dextrose 5% 100 ML @ 100 mls/hr IVPB Q4H [facility] Rx#: [id number] Flagyl Premix 500 MG/100 100 / 100 100 / 100 ML 500 mg In 100 ml @ 100 mls/hr IVPB Q8HR [facility] Rx# :[id number] Oral 0 / 0 0 / 0 Output: Urine 0 / 0 Other: Meal NPO Percent of Meal Consumed 0% Stool Size Moderate Stool Consistency loose liquid Stool Color Brown # Bowel Movements 3 Blood Glucose* 134 183 - General Appearance General appearance: cachectic, chronically ill, fatigue, frail EENT: mucous membranes dry Neck: supple Respiratory: clear Cardiology: edema (1+ pretibial pitting edema at the sock line b/l), regular rate, regular rhythm, normal S1, normal S2 Gastrointestinal: normoactive bowel sounds, no tenderness, no guarding Integumentary: no rash, warm and dry Neurologic: no focal deficit, no asterixis, alert and oriented x3 Musculoskeletal: no deformities, no erythema Psychiatric: mood/affect appropriate, cooperative Results - Lab Results 11/29/16 04:50 11/29/16 22:30 Most recent lab results Calcium 7.8 mg/dL (8.6-10.8) L 11/29/16 04:50 Magnesium 1.0 mg/dL (1.6-2.6) L 11/29/16 04:50 I reviewed the above data/info, progress notes, labs, meds, vitals, imaging Consult Discharge Plan - Plan Referrals: Rene Jacob Jr, MD [Primary Care Provider] -
[2016-11-29] MEDS: *HR* HYDROcodone/Acet 5/325 mg TABLET PO PRN (21:41)
[2016-11-29 23:01] LABS: Protein/Creatinine Ratio,Urine 0.38 mg/mg (0-0.20)
[2016-11-30] MEDS: Norepinephrine 4 MG in D5% in Water 250 ML IVC SCH ×3 (00:10→07:50)
[2016-11-30] MEDS: Insulin LISPRO 300 UNITS/3 ML VIAL SQ SCH ×7 (00:17→20:11)
[2016-11-30 04:00] LABS: Calcium 7.8 mg/dL (8.6-10.8); Magnesium 1.8 mg/dL (1.6-2.6); Phosphorous 3.2 mg/dL (2.3-4.7); Potassium 3.4 mEq/L (3.5-4.5); Uric Acid 4.7 mg/dL (2.6-6.0)
[2016-11-30 04:13] LABS: Hematocrit 25.7 % (35.3-44.9); Hemoglobin 8.7 g/dL (11.5-15.4); Mean Corpuscular HGB Conc 33.9 g/dL (31.6-35.5); Mean Corpuscular Hemoglobin 32.3 pg (28.0-33.3); Mean Corpuscular Volume 95.5 fL (83.0-100.0); Mean Platelet Volume 10.4 fL (9.4-12.4); Nucleated Red Blood Cells 0.5 /100 WBC (0); Platelet Count 203 K/mcL (140-400); Red Blood Count 2.69 M/mcL (3.82-4.97)
[2016-11-30 04:20] LABS: Thyroid Stimulating Hormone 12.101 mcIU/mL (0.350-4.840)
[2016-11-30 05:20] LABS: Eosinophils # 0.2 K/mcL (0.0-0.6); Lymphocytes # 2.7 K/mcL (0.6-4.6); Monocytes # 1.1 K/mcL (0.0-1.3)
[2016-11-30 05:21] LABS: Platelet Estimate Normal (Normal); Reactive Lymphocytes Present (Not Present); Toxic Granulation Present (Not Present)
[2016-11-30 05:22] LABS: Dohle Bodies Present (Not Present); Large Platelets Present (Not Present)
[2016-11-30 05:23] LABS: Macrocytosis Present (Not Present); Polychromasia 1+ (Not Present)
[2016-11-30] MEDS: *HR* Heparin 5,000 UNIT/ML VIAL SQ SCH ×2 (06:33→16:26)
[2016-11-30] MEDS: *HR* HYDROcodone/Acet 5/325 mg TABLET PO PRN ×3 (06:40→20:45)
[2016-11-30] MEDS: *HR* HYDROmorphone (PF) 1 MG/ML SYRINGE IVP PRN ×2 (07:50→16:10)
[2016-11-30] MEDS: Pantoprazole 40 MG VIAL IVP SCH ×2 (07:50→20:45)
[2016-11-30] MEDS: Aspirin Enteric Coated 81 MG Tablet PO SCH (07:51)
[2016-11-30] MEDS: MetroNIDAZOLE 500 MG/100 ML 500 MG/100 ML BAG IVPB SCH (07:52)
[2016-11-30] MEDS: Diltiazem CD (24hr) 120 MG CAPSULE PO SCH (07:53)
[2016-11-30] MEDS ORDERED: Metoprolol XL (24 HR) Succ 50 MG TAB.ER.24H PO SCH (09:00)
[2016-11-30] MEDS ORDERED: Sodium Phosphate 30 MMOL in 0.9 % Sodium Chloride 100 ML IVPB PRN (09:21)
[2016-11-30] MEDS ORDERED: Potassium Chloride 40 MEQ/200 ML BAG IVPB PRN (09:21)
--- NOTE | 2016-11-30 09:28 | Internal Med Progress Note ---
Date of Encounter: 11/30/16 Time of Encounter: 08:50 - Assessment and plan (1) Septic shock Current Visit: Yes Status: Acute Assessment and plan: Multifactorial, likely secondary to UTI/enteritis CT abd/pelvis reported pneumobilia with common bile dcut stent placement, new small amount of gas within the gallbladder seen Pt currently on vasopressor support Will continue Norepinephrine d/c ciprofloxacin and start Zosyn continue Flagyl f/u cultures f/u lactate level will continue ICU care GI evaluation requested given CT abd/pelvis findings will consult ICU (2) ANTHONY (acute kidney injury) Current Visit: Yes Status: Acute Assessment and plan: likely secondary to severe hypotension will hold nephrotoxic agents at this time continue to closely monitor renal function (3) Hyponatremia Current Visit: Yes Status: Acute Assessment and plan: serum osm: 265.7 f/u urine osm Nephrology on board and consultation appreciated noted to have NAGMA, will administer 1amp of bicarb continue Nacl tabs close monitoring of sodium (Na q4h) goal correction: 6-8meq in 24hours will continue to closely monitor avoid supplementing dextrose solution for electrolyte replacements (4) Enteritis Current Visit: Yes Status: Acute Assessment and plan: continue IV abx will advance to full liquid diet pt reports of improvement in abd discomfort from previous day (5) Electrolyte abnormality Current Visit: Yes Status: Acute Assessment and plan: Hypokalemia K supplemented continue to monitor electrolytes and replace as needed (6) Diabetes Current Visit: Yes Status: Chronic Assessment and plan: continue ss insulin algorithm monitor FS and BG Qualifiers: Diabetes mellitus type: type 2 Diabetes mellitus complication status: without complication Diabetes mellitus retirement insulin use: without 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 Qualified Code(s): E11.9 - Type 2 diabetes mellitus without complications (7) HLD (hyperlipidemia) Current Visit: Yes Status: Chronic Qualifiers: Hyperlipidemia type: pure hypercholesterolemia Qualified Code(s): E78.00 - Pure hypercholesterolemia, unspecified; E78.0 - Pure hypercholesterolemia (8) HTN (hypertension) Current Visit: Yes Status: Chronic Assessment and plan: currently on vasopressor support Qualifiers: Hypertension type: essential hypertension Qualified Code(s): I10 - Essential (primary) hypertension (9) DVT prophylaxis Current Visit: Yes Status: Chronic Assessment and plan: Heparin SQ (10) Pancreatic cancer Current Visit: Yes Status: Chronic Assessment and plan: pt currently undergoing chemotherapy, last chemo session was on November pt to resume treatment as outpatient Qualifiers: Pancreatic malignancy location: unspecified Qualified Code(s): C25.9 - Malignant neoplasm of pancreas, unspecified - Subjective Interval history: Patient is a 76y/o female with PMH of pancreatic cancer recently undergoing chemotherapy, last chemotherapy was on November. She is admitted for diffuse abdominal pain secondary to Enteritis. She is started on empiric IV abx and bowel rest. She was also found to have hyponatremia with b/l LE pitting edema. Patient seen and examined in the ICU. Patient is resting in bed and reports of feeling better compared to previous day. She is tolerating clear liquid diet and wishing to advance her diet. States the abd pain is improved from previous day and she has not had any BM since yesterday evening. Overnight patient was noted to become severely hypotensive requiring vasopressor support. She remains vasopressor dependent. - Constitutional Vitals: Temp Pulse Resp BP Pulse Ox 97.5 F L 65 14 93/58 98 11/30/16 08:45 11/30/16 06:15 11/30/16 06:15 11/30/16 06:15 11/30/16 06:15 General appearance: Present: cooperative, A&O X 3 (frail appearing elderly female), pleasant, obese, answers questions appropriately - Head Head exam: Present: atraumatic, normocephalic - Eye Eye exam: Present: conjuntiva pink, sclera anicteric - Respiratory Respiratory exam: Present: CTAB. Absent: respiratory distress, wheezes - Cardiovascular Cardiovascular exam: Present: RRR, +S1, +S2. Absent: diastolic murmur, gallop, rubs, systolic murmur - GI/Abdominal GI/Abdominal exam: Present: normal bowel sounds, no peritoneal signs. Absent: distended, tenderness - Extremities Exam Extremities exam: Present: warm, radial pulses palpable and symmetrical (3+ pitting edema in bilateral lower extremities) - Neurological Exam Neurological exam: Present: alert, oriented X3 - Psychiatric Psychiatric exam: Present: normal affect, normal mood Internal Medicine: Result - Labs CBC & Chem 7: 11/30/16 03:40 11/30/16 03:40 Labs: Short CBC 11/30/16 Range/Units 03:40 WBC 7.6 D (4.3-11.1) K/mcL Hgb 8.7 L (11.5-15.4) g/dL Hct 25.7 L (35.3-44.9) % Plt Count 203 (140-400) K/mcL Neutrophils # 3.0 (1.6-8.9) K/mcL BMP 11/29/16 11/29/16 11/29/16 13:50 18:54 20:35 Sodium 125 L 128 L 127 L Potassium Chloride Carbon Dioxide BUN Creatinine Glucose Calcium 11/29/16 11/30/16 22:30 03:40 Sodium 128 L 127 L Potassium 3.4 L Chloride 100 Carbon Dioxide 18 L BUN 21 H Creatinine 1.22 H D Glucose 165 H Calcium 7.8 L - ABG Interpretation ABG results: PT/INR, D-dimer PT 16.0 Seconds (9.4-12.1) H 11/29/16 04:50 Consult Discharge Plan - Plan Referrals: Rene Jacob Jr, MD [Primary Care Provider] -
--- NOTE | 2016-11-30 09:48 | Nephrology Progress Note ---
Date of Encounter: 11/30/16 Time of Encounter: 09:44 - Assessment and Plan (1) ANTHONY (acute kidney injury) Current Visit: Yes Status: Acute Secondary to shock. Should improve with blood pressure support. If it persist then we will consider further workup. (2) Electrolyte abnormality Current Visit: Yes Status: Acute Replace electrolytes as needed. (3) Enteritis Current Visit: Yes Status: Acute Per the primary team. I did speak with the primary team this morning and advise broadening her antibiotic coverage. (4) Hyponatremia Current Visit: Yes Status: Acute I recommend changing Caria solutions to 0.9. Restricting free water. Consider Lasix. This was discussed with the primary team. (5) Septic shock Current Visit: Yes Status: Acute Etiology is not completely clear at this time. This is improved with pressor support. (6) Pancreatic cancer Current Visit: Yes Status: Chronic Per primary care team. Qualifiers: Pancreatic malignancy location: unspecified Qualified Code(s): C25.9 - Malignant neoplasm of pancreas, unspecified Subjective Principal diagnosis: Hyponatremia Interval history: Patient was seen and evaluated. She denies any new symptoms. She reports that her appetite has increased slightly. She denies chest pain or shortness of breath. She only has minimal abdominal discomfort. Her review of system otherwise appears to be stable. Objective - Vital Signs Vital signs: Vital Signs Temp Pulse Resp BP Pulse Ox 11/30/16 08:45 97.5 F L 11/30/16 06:15 65 14 93/58 98 11/30/16 05:17 97.6 F 11/30/16 04:00 65 16 97/51 98 11/30/16 03:00 53 14 82/48 98 11/30/16 02:45 61 12 76/43 97 11/30/16 02:30 64 14 86/43 97 11/30/16 02:00 60 12 86/56 97 11/30/16 01:30 61 12 79/46 97 11/30/16 01:15 97.6 F 63 16 73/44 97 11/30/16 01:00 67 14 74/35 98 11/30/16 00:30 61 16 76/39 98 11/30/16 00:20 97.5 F L 11/30/16 00:00 77 14 77/47 99 11/29/16 23:00 61 12 87/47 97 11/29/16 22:00 80 12 87/69 97 11/29/16 21:00 80 20 95/49 98 11/29/16 20:43 98.1 F 11/29/16 20:00 81 16 98/54 95 11/29/16 19:00 75 18 86/46 96 11/29/16 17:56 97.5 F L 84 14 102/48 97 11/29/16 10:44 97.3 F L 89 16 96/62 97 Intake and Output 11/29/16 11/30/16 11/30/16 23:59 07:59 15:59 Intake Total 100 / 100 808 / 808 Output Total 750 / 750 250 / 250 Balance 100 / 100 58 / 58 -250 / -250 Intake: IV Fluids 100 / 100 808 / 808 Levophed 4 MG In Dextrose 508 / 508 5% 250 ML @ 2 MCG/MIN 7. 62 mls/hr IVC CONT [facility] Rx #:[id number] Cipro Premix 400 MG/200 200 / 200 ML 400 mg In 200 ml @ 200 mls/hr IVPB Q12H [facility] Rx# :[id number] Flagyl Premix 500 MG/100 100 / 100 100 / 100 ML 500 mg In 100 ml @ 100 mls/hr IVPB Q8HR [facility] Rx# :[id number] Oral 0 / 0 Output: Catheter 750 / 750 250 / 250 Other: Weight 81 kg Blood Glucose* 134 169 214 Patient Weight 11/30/16 23:59 Weight 81 kg - General Appearance General appearance: Present: well-developed, well-nourished, obese EENT: Present: ATNC Neck: Present: supple Respiratory: Present: clear (Anteriorly) Cardiology: Present: edema (2-3+ edema in the bilateral lower extremities.), regular rate, regular rhythm Gastrointestinal: Present: no tenderness, no guarding Integumentary: Present: warm and dry Neurologic: Present: alert and oriented x3 Musculoskeletal: Present: no cyanosis Psychiatric: Present: mood/affect appropriate - Lab 11/30/16 10:20 11/30/16 20:55 Most recent lab results Calcium 7.8 mg/dL (8.6-10.8) L 11/30/16 03:40 Phosphorus 3.2 mg/dL (2.3-4.7) 11/30/16 03:40 Magnesium 1.8 mg/dL (1.6-2.6) 11/30/16 03:40 Urine Creatinine 82 mg/dL 11/29/16 22:30 Urine Sodium 38.0 mEq/L 11/29/16 22:30 Urine Total Protein 31 mg/dL (1-14) H 11/29/16 22:30 Consult Discharge Plan - Plan Referrals: Rene Jacob Jr, MD [Primary Care Provider] -
--- NOTE | 2016-11-30 09:51 | Gastroenterology Consult Note ---
<BasilioDona bey - Last Filed: 11/30/16 11:44> Date of Encounter: 11/30/16 Time of Encounter: 09:44 - Assessment and plan (1) Pneumobilia Current Visit: Yes Status: Acute Assessment and plan: CT abdomen/pelvis showed increased retroperitoneal lymph node enlargement, pneumobilia with common bile duct stent placement, new small amount of burton within GB, midly dilated loops of small bowel within proximal jejunum in let mid abdomen with perienteric stranding. AST mildly elevated at 53. ALT, ALP, total bili, Amylase, lipase normal. Patient currently does not meet criteria for ascending cholangitis. Plan: No urgent need for ERCP at this time, as patient has no signs of ascending cholangitis, and has normal LFTs and T.Bili no concern for stent blockage at this time. Patient likely would benefit from surgical evaluation. continue current management per critical care team. (2) Enteritis Current Visit: Yes Status: Acute Assessment and plan: plan as above. (3) Septic shock Current Visit: Yes Status: Acute Assessment and plan: Etiology likely multifactorial in setting of UTI and enteritis, currently requiring Levophed Patient is on flagyl and zosyn. lactic acid last checked on 11/28 was 1.1 (4) Pancreatic cancer Current Visit: Yes Status: Chronic Assessment and plan: Patient follows with Dr. Enriquez at [facility]. Hx of pancreatic adenocarcinoma diagnosed by EUS with Biopsy, sees Dr. Lanier at [facility]. had ERCP with stent placement. started chemotherapy in October 2016 continue management per oncology. Qualifiers: Pancreatic malignancy location: unspecified Qualified Code(s): C25.9 - Malignant neoplasm of pancreas, unspecified (5) Hyponatremia Current Visit: Yes Status: Acute Assessment and plan: continue management per primary team and nephrology. - Time Spent With Patient Total time spent is greater than 50% in coordination of care (as documented) at patient's floor/unit and/or counseling patient: GI History of Present Illness - Data of Consult Patient: known to practice within the last 3 years Consult date: 11/30/16 Requesting Physician: Nina Crow MD - Consult Narrative Reason for consult: pneumobilia History of present illness: Ms. Workman is a 76 year old female with PMHx of arthritis, Afib, pancreatic cancer, DM, GERD, HLD, HTN, thyroid disease. Patient presented to the ED on 11/28 with chief complaint of abdominal pain and left sided flank pain. She was at the cancer center earlier that day with increased weakness due to nausea and intermittent vomiting for past several days. she also reports fevers, chills, and generalized weakness. she has also had decreased appetite recently and admits to having diarrhea. she denies blood in her vomit, and denies coffee ground emesis. she has had jaundice in the past, but has not noticed any jaundice recently. she states she did start chemo last month and follows with Dr. Enriquez. She had ERCP in the past with stent placement at [facility]. She is currently in ICU being treated for septic shock and hyponatremia. GI was consulted for pneumobilia seen on recent CT of abdomen/pelvis. Past Med Surg Social Fam HX - Past Medical History Medical history: arthritis, atrial fibrillation, cancer, diabetes, GERD, hyperlipidemia, hypertension, myocardial infarction, thyroid disease Psychiatric history: no psych history - Past Surgical History Surgical History: hysterectomy (Total), other (Nephrectomy of right kidney, Thyroid nodule removal) - Social History Smoking Status: Never smoker Smokeless Tobacco Status: No Alcohol use: none Drug use: none - Family History Father Race: Family Member Ethnicity: Non- Living Status: Age at : 66 Cause of : Blood clot following surgery Hx Family Endocrine Disorder: Yes (DM) Mother Race: Family Member Ethnicity: Non- Living Status: Age at : 84 Hx Family Cardiac Disorders: Yes (Heart murmur) Hx Family Neurologic Disorders: Yes (Alzheimer's disease) Brother Race: Family Member Ethnicity: Non- Living Status: Still Living Hx Family Cardiac Disorders: Yes (CAD, pacemaker) Sister Race: Family Member Ethnicity: Non- Living Status: Age at : 66 Cause of : Ovarian cancer Hx Family Cancer: Yes (Ovarian) All systems PM: reviewed and no additional remarkable complaints except as stated - Constitutional Vitals: Temp Pulse Resp BP Pulse Ox 97.5 F L 65 14 93/58 98 11/30/16 08:45 11/30/16 06:15 11/30/16 06:15 11/30/16 06:15 11/30/16 06:15 General appearance: Present: A&O X 3, pleasant, no acute distress - Head Head exam: Present: atraumatic, normocephalic - Eye Eye exam: Absent: scleral icterus - Neck Neck exam general surgery: Present: supple, trachea midline - Respiratory Respiratory exam: Present: CTAB - Cardiovascular Cardiovascular exam: Present: RRR, +S1, +S2 - GI/Abdominal GI/Abdominal exam: Present: soft, no peritoneal signs. Absent: distended Additional comments: mild epigastric tenderness. - Extremities Exam Extremities exam: Absent: cyanotic Additional comments: +2 bilateral lower extremity pitting edema. - Neurological Exam Neurological exam: Present: alert, oriented X3, no focal deficits - Psychiatric Psychiatric exam: Present: normal affect, normal mood Results - Labs CBC & Chem 7: 11/30/16 10:20 11/30/16 10:20 Labs: Last Result Calcium 7.8 mg/dL (8.6-10.8) L 11/30/16 03:40 Troponin I 0.00 ng/mL (0-0.03) 11/28/16 11:35 Triglycerides 115 mg/dL (< 150) 11/29/16 04:50 Entire Visit Hgb 8.7 g/dL (11.5-15.4) L 11/30/16 03:40 Hct 25.7 % (35.3-44.9) L 11/30/16 03:40 PT 16.0 Seconds (9.4-12.1) H 11/29/16 04:50 Total Bilirubin 0.8 mg/dL (0.2-1.2) 11/29/16 04:50 AST 53 Units/L (5-34) H 11/29/16 04:50 ALT 55 Units/L (0-55) 11/29/16 04:50 Amylase 8 Units/L (25-125) L 11/28/16 11:35 Lipase < 10 Units/L (8-78) 11/28/16 11:35 - ABG ABG results: PT/INR, D-dimer PT 16.0 Seconds (9.4-12.1) H 11/29/16 04:50 Consult Discharge Plan - Plan Referrals: Rene Jacob Jr, MD [Primary Care Provider] - <Jason Knutson - Last Filed: 11/30/16 15:39> Date of Encounter: 11/30/16 Time of Encounter: 12:00 - Time Spent With Patient Total time spent is greater than 50% in coordination of care (as documented) at patient's floor/unit and/or counseling patient: GI History of Present Illness - Data of Consult Requesting Physician: Nina Crow MD - Consult Narrative History of present illness: Ms. Workman is a 76 year old female - Constitutional Vitals: Temp Pulse Resp BP Pulse Ox 97.5 F L 82 23 96/58 96 11/30/16 12:00 11/30/16 14:00 11/30/16 14:00 11/30/16 14:00 11/30/16 14:13 Results - Labs CBC & Chem 7: 11/30/16 10:20 11/30/16 10:20 Labs: Last Result Calcium 7.8 mg/dL (8.6-10.8) L 11/30/16 10:20 Troponin I 0.00 ng/mL (0-0.03) 11/28/16 11:35 Triglycerides 115 mg/dL (< 150) 11/29/16 04:50 Entire Visit Hgb 8.9 g/dL (11.5-15.4) L 11/30/16 10:20 Hct 26.9 % (35.3-44.9) L 11/30/16 10:20 PT 16.0 Seconds (9.4-12.1) H 11/29/16 04:50 Total Bilirubin 0.8 mg/dL (0.2-1.2) 11/29/16 04:50 AST 53 Units/L (5-34) H 11/29/16 04:50 ALT 55 Units/L (0-55) 11/29/16 04:50 Amylase 8 Units/L (25-125) L 11/28/16 11:35 Lipase < 10 Units/L (8-78) 11/28/16 11:35 - ABG ABG results: PT/INR, D-dimer PT 16.0 Seconds (9.4-12.1) H 11/29/16 04:50
[2016-11-30] MEDS: Norepinephrine 4 MG in 0.9 % Sodium Chloride 250 ML IVC SCH (10:42)
[2016-11-30] MEDS: Piperacillin/Tazobactam 3.375 GM in 0.9 % Sodium Chloride Mini Bag 100 ML IVPB SCH ×3 (10:43→16:29)
[2016-11-30] MEDS ORDERED: 0.9 % Sodium Chloride 1,000 ML IVC ONE (10:47)
[2016-11-30 10:54] LABS: Hematocrit 26.9 % (35.3-44.9); Hemoglobin 8.9 g/dL (11.5-15.4); Immature Platelets 4.6 % (1.1-6.1); Mean Corpuscular HGB Conc 33.1 g/dL (31.6-35.5); Mean Corpuscular Hemoglobin 31.6 pg (28.0-33.3); Mean Corpuscular Volume 95.4 fL (83.0-100.0); Mean Platelet Volume 10.2 fL (9.4-12.4); Nucleated Red Blood Cells 0.8 /100 WBC (0); Platelet Count 250 K/mcL (140-400); Red Blood Count 2.82 M/mcL (3.82-4.97); Red Cell Distribution Width 14.3 % (11.5-14.5)
--- NOTE | 2016-11-30 10:56 | Pulmonology Consult Note ---
<Suzanne Sim - Last Filed: 11/30/16 11:22> Date of Encounter: 11/30/16 Time of Encounter: 10:30 Assessment and Plan (1) Septic shock Current Visit: Yes Status: Acute Patient stable with minimal hypotension noted. Hypotension most likely due to dehydration as the patient is very dry on physical exam. Will replete fluids and start stress dose of steroids and reevaluate. Multifactorial, likely secondary to UTI/enteritis, CT abd/pelvis reported pneumobilia with common bile duct stent placement, new small amount of gas within the gallbladder seen Pt currently on vasopressor support d/c ciprofloxacin and start Zosyn continue Flagyl f/u cultures f/u lactate level will continue ICU care GI evaluation requested given CT abd/pelvis findings (2) Hyponatremia Current Visit: Yes Status: Acute serum osm: 265.7, urine electrolytes and osm pending Nephrology consulted close monitoring of sodium (Na q4h); most likely due to dehydration. Will fluid bolus x1 liter of NaCl and reevaluate levels. (3) Pneumobilia Current Visit: Yes Status: Acute CT abdomen/pelvis showed increased retroperitoneal lymph node enlargement, pneumobilia with common bile duct stent placement, new small amount of gas within GB, mildly dilated loops of small bowel within proximal jejunum in let mid abdomen with perienteric stranding. AST mildly elevated at 53. ALT, ALP, total bili, Amylase, lipase normal. Patient currently does not meet criteria for ascending cholangitis. GI consulted. If patient is candidate for surgery she will need to be transferred to [facility] since this was where her stent placement occurred. (4) Pancreatic cancer Current Visit: Yes Status: Chronic pt currently undergoing chemotherapy, last chemo session was on November pt to resume treatment as outpatient Qualifiers: Pancreatic malignancy location: unspecified Qualified Code(s): C25.9 - Malignant neoplasm of pancreas, unspecified (5) ANTHONY (acute kidney injury) Current Visit: Yes Status: Acute Likely secondary to severe hypotension will hold nephrotoxic agents at this time continue to closely monitor renal function Nephrology has been consulted (6) Enteritis Current Visit: Yes Status: Acute continue IV abx will advance to full liquid diet GI has been consulted (7) DVT prophylaxis Current Visit: Yes Status: Chronic Heparin SQ History of Present Illness Consult date: 11/30/16 Reason for consult: other (Hypotension) Chief complaint: Dehydration/Hypotension History of present illness: Ms. Workman is a 76 year old female with medical history of arthritis, atrial fibrillation, pancreatic cancer, diabetes controlled with oral anti- hyperglycemics, GERD, HLD, HTN, and thyroid disease presents from the ED with chief complaint of abdominal pain and left-sided flank pain. Patient reports she was at the cancer Center today with increased weakness due to nausea and vomiting for the past several days. Patient states she had similar symptoms when she had a kidney infection previously. Patient reports fever of 101 at home, chills, weakness. Throughout her course in the hospital patient was noted to be hyponatemic and hypotensive. Was started on pressors and we were consulted for further management. On patient's CT abdomen air was noted in the biliary tree. GI has been consulted. She has a history of stent placement at [facility]. Past Med Surg Social Fam HX - Past Medical History Medical history: arthritis, atrial fibrillation, cancer, diabetes, GERD, hyperlipidemia, hypertension, myocardial infarction, thyroid disease Psychiatric history: no psych history - Past Surgical History Surgical History: hysterectomy (Total), other (Nephrectomy of right kidney, Thyroid nodule removal) - Social History Smoking Status: Never smoker Smokeless Tobacco Status: No Alcohol use: none Drug use: none - Family History Father Race: Family Member Ethnicity: Non- Living Status: Age at : 66 Cause of : Blood clot following surgery Hx Family Endocrine Disorder: Yes (DM) Mother Race: Family Member Ethnicity: Non- Living Status: Age at : 84 Hx Family Cardiac Disorders: Yes (Heart murmur) Hx Family Neurologic Disorders: Yes (Alzheimer's disease) Brother Race: Family Member Ethnicity: Non- Living Status: Still Living Hx Family Cardiac Disorders: Yes (CAD, pacemaker) Sister Race: Family Member Ethnicity: Non- Living Status: Age at : 66 Cause of : Ovarian cancer Hx Family Cancer: Yes (Ovarian) Medications and Allergies Aspirin Enteric Coated [Aspirin EC] 81 mg PO DAILY 07/15/15 [History] Levothyroxine [Synthroid] 100 mcg PO DAILY 07/15/15 [History] Diltiazem CD (24hr) [Cardizem CD] 120 mg PO DAILY 10/30/16 [History] Insulin ASPART [Novolog Flexpen] 0 unit SQ TIDWM PRN 10/30/16 [History] Magic Mouthwash [Magic Mouthwash BLM] 10 ml PO QID PRN #240 ml 10/30/16 [Rx] Metoprolol Succinate 200 mg PO DAILY 10/30/16 [History] Ondansetron [Zofran] 4 mg PO Q8HR #90 tablet 10/30/16 [Rx] Prochlorperazine Maleate [Compazine] 10 mg PO Q8HR PRN #90 tablet 10/30/16 [Rx] Omeprazole 20 mg PO BID #60 tablet. 10/31/16 [Rx] Diphenoxylate/Atropine [Lomotil 2.5 mg/0.025 mg] 1 each PO TID PRN #90 tablet [Rx] HydrOXYzine 10 mg PO TID #30 tablet 11/02/16 [Rx] Furosemide [Lasix] 20 mg PO DAILY PRN #30 tablet 11/16/16 [Rx] OxyCODONE Immed Rel [Roxicodone 5 MG] 5 mg PO DAILY PRN #30 tablet 11/16/16 [Rx] Lipase/Protease/Amylase [Jodi Goff 24,000 Units Capsule] 1 each PO TID 11/21/16 [ History] 3 Allergy/AdvReac Type Severity Reaction Status Date / Time duloxetine Allergy Intermediate Nausea Verified 11/28/16 11:08 All Systems: A 10-system review of systems was performed and is negative for pertinent findings except as documented above in the HPI. - Constitutional Constitutional: anorexia, fatigue, weakness - EENT Eyes: as per HPI Ears: as per HPI Nose, mouth and throat: as per HPI - Cardiovascular Cardiovascular: irregular heart rhythm, no chest pain, no dyspnea - Respiratory Respiratory: no dyspnea, no wheezing, no stridor - Gastrointestinal Gastrointestinal: abdominal pain, nausea, no diarrhea, no hematemesis, no hematochezia - Genitourinary Genitourinary: as per HPI, no hematuria, no urinary incontinence - Musculoskeletal Musculoskeletal: weakness, no abnormal gait, no numbness - Integumentary Integumentary: as per HPI - Neurological Neurological: as per HPI - Psychiatric Psychiatric: as per HPI - Endocrine Endocrine: as per HPI - Hematologic/Lymphatic Hematologic/Lymphatic: as per HPI - Allergic/Immunologic Allergic/Immunologic: as per HPI Physical Examination Vital Signs: Vital Signs, Last 4 Hours Temp Pulse Resp BP Pulse Ox 11/30/16 10:00 71 16 90/62 97 11/30/16 08:45 97.5 F L General appearance: no acute distress, alert Eyes: nonicteric ENT: oropharynx moist Neck: supple, no JVD Effort: normal Inspection: normal Auscultation: bilateral: clear Cardiovascular: regular rate and rhythm Gastrointestinal: normoactive bowel sounds, soft, tender, non-distended Integumentary: normal Extremities: no cyanosis, no clubbing Musculoskeletal: no deformities Gait: normal posture normal mental status, non-focal exam mood appropriate, affect normal Results - Laboratory Findings CBC and BMP: 11/30/16 10:20 11/30/16 10:20 PT/INR, D-dimer PT 16.0 Seconds (9.4-12.1) H 11/29/16 04:50 Abnormal lab findings: Abnormal lab results RBC 2.82 M/mcL (3.82-4.97) L 11/30/16 10:20 Hgb 8.9 g/dL (11.5-15.4) L 11/30/16 10:20 Hct 26.9 % (35.3-44.9) L 11/30/16 10:20 Band Neutrophils % 6.0 % (0-4) H 11/30/16 03:40 Metamyelocytes % 2.0 % (0) H 11/28/16 11:35 Myelocytes % 8.0 % (0) H 11/30/16 03:40 Nucleated RBCs/100 WBC 0.8 /100 WBC (0) H 11/30/16 10:20 Reactive Lymphocytes Present (Not Present) A 11/30/16 03:40 Toxic Granulation Present (Not Present) A 11/30/16 03:40 Dohle Bodies Present (Not Present) A 11/30/16 03:40 Large Platelets Present (Not Present) A 11/30/16 03:40 Polychromasia 1+ (Not Present) A 11/30/16 03:40 Macrocytosis Present (Not Present) A 11/30/16 03:40 PT 16.0 Seconds (9.4-12.1) H 11/29/16 04:50 APTT 24.7 Seconds (26.0-36.0) L 11/29/16 04:50 Sodium 127 mEq/L (136-145) L 11/30/16 03:40 Potassium 3.4 mEq/L (3.5-4.5) L 11/30/16 03:40 Carbon Dioxide 18 mEq/L (19-29) L 11/30/16 03:40 BUN 21 mg/dL (7-20) H 11/30/16 03:40 Creatinine 1.22 mg/dL (0.57-1.11) H D 11/30/16 03:40 Est GFR ( Amer) 52 (> 60) L 11/30/16 03:40 Est GFR (Non-Af Amer) 43 (> 60) L 11/30/16 03:40 Glucose 165 mg/dL (70-99) H 11/30/16 03:40 POC Glucose 214 (58-89) H 11/30/16 07:54 Calculated Osmolality 271 (280-300) L 11/30/16 03:40 Calcium 7.8 mg/dL (8.6-10.8) L 11/30/16 03:40 Direct Bilirubin 0.7 mg/dL (0.0-0.5) H 11/28/16 11:35 AST 53 Units/L (5-34) H 11/29/16 04:50 Serum Total Protein 4.5 g/dL (6.0-8.3) L 11/29/16 04:50 Albumin 1.7 g/dL (3.5-5.0) L 11/29/16 04:50 Albumin/Globulin Ratio 0.6 (1.1-2.2) L 11/29/16 04:50 Prealbumin 4.0 mg/dL (16.0-38.0) L 11/30/16 03:40 HDL Cholesterol 24 mg/dL (40-59) L 11/29/16 04:50 Amylase 8 Units/L (25-125) L 11/28/16 11:35 TSH 12.101 mcIU/mL (0.350-4.840) H 11/30/16 03:40 Urine Clarity Cloudy (Clear) A 11/28/16 20:00 Urine Nitrite Positive (Negative) A 11/28/16 20:00 Urine Microscopic WBC 3-5 per hpf (0-3) H 11/28/16 20:00 Ur Squamous Epith Cells Many per lpf (None-Few) H 11/28/16 20:00 Urine Bacteria Many per hpf (None-Few) H 11/28/16 20:00 Ur Culture Indicated? YES (NO) A 11/28/16 20:00 Protein/Creatinin Ratio 0.38 mg/mg (0-0.20) H 11/29/16 22:30 Urine Total Protein 31 mg/dL (1-14) H 11/29/16 22:30 - Microbiology Findings Microbiology Findings: Microbiology, Last 48 Hours 11/28/16 16:18 Blood Culture - Preliminary Peripheral Venipuncture No growth. 11/28/16 20:00 Urine Culture - Preliminary Urine,Clean Catch Gram Negative Abilio - Clinical Findings Intake & Output: Intake & Output 11/29/16 11/30/16 11/30/16 23:59 07:59 15:59 Intake Total 100 / 100 808 / 808 Output Total 750 / 750 250 / 250 Balance 100 / 100 58 / 58 -250 / -250 Weight 81 kg Consult Discharge Plan - Plan Referrals: Rene Jacob Jr, MD [Primary Care Provider] - <Yuniel Wilcox - Last Filed: 11/30/16 12:26> Date of Encounter: 11/30/16 All Systems: A 10-system review of systems was performed and is negative for pertinent findings except as documented above in the HPI. Physical Examination Vital Signs: Vital Signs, Last 4 Hours Temp Pulse Resp BP Pulse Ox 11/30/16 12:00 71 12 94/52 98 11/30/16 11:00 66 16 104/58 97 11/30/16 10:00 71 16 90/62 97 11/30/16 09:00 60 20 100/63 96 11/30/16 08:45 97.5 F L Results - Laboratory Findings CBC and BMP: 11/30/16 10:20 11/30/16 10:20 PT/INR, D-dimer PT 16.0 Seconds (9.4-12.1) H 11/29/16 04:50 Abnormal lab findings: Abnormal lab results RBC 2.82 M/mcL (3.82-4.97) L 11/30/16 10:20 Hgb 8.9 g/dL (11.5-15.4) L 11/30/16 10:20 Hct 26.9 % (35.3-44.9) L 11/30/16 10:20 Band Neutrophils % 8.0 % (0-4) H 11/30/16 10:20 Metamyelocytes % 2.0 % (0) H 11/30/16 10:20 Myelocytes % 6.0 % (0) H 11/30/16 10:20 Nucleated RBCs/100 WBC 0.8 /100 WBC (0) H 11/30/16 10:20 Reactive Lymphocytes Present (Not Present) A 11/30/16 03:40 Toxic Granulation Present (Not Present) A 11/30/16 10:20 Dohle Bodies Present (Not Present) A 11/30/16 10:20 Large Platelets Present (Not Present) A 11/30/16 03:40 Polychromasia 1+ (Not Present) A 11/30/16 10:20 Basophilic Stippling 1+ (Not Present) A 11/30/16 10:20 Macrocytosis Present (Not Present) A 11/30/16 03:40 PT 16.0 Seconds (9.4-12.1) H 11/29/16 04:50 APTT 24.7 Seconds (26.0-36.0) L 11/29/16 04:50 Sodium 128 mEq/L (136-145) L 11/30/16 10:20 Potassium 3.4 mEq/L (3.5-4.5) L 11/30/16 10:20 Est GFR (Non-Af Amer) 50 (> 60) L 11/30/16 10:20 Glucose 122 mg/dL (70-99) H 11/30/16 10:20 POC Glucose 214 (58-89) H 11/30/16 07:54 Calculated Osmolality 269 (280-300) L 11/30/16 10:20 Calcium 7.8 mg/dL (8.6-10.8) L 11/30/16 10:20 Direct Bilirubin 0.7 mg/dL (0.0-0.5) H 11/28/16 11:35 AST 53 Units/L (5-34) H 11/29/16 04:50 Serum Total Protein 4.5 g/dL (6.0-8.3) L 11/29/16 04:50 Albumin 1.7 g/dL (3.5-5.0) L 11/29/16 04:50 Albumin/Globulin Ratio 0.6 (1.1-2.2) L 11/29/16 04:50 Prealbumin 4.0 mg/dL (16.0-38.0) L 11/30/16 03:40 HDL Cholesterol 24 mg/dL (40-59) L 11/29/16 04:50 Amylase 8 Units/L (25-125) L 11/28/16 11:35 TSH 12.101 mcIU/mL (0.350-4.840) H 11/30/16 03:40 Free T4 0.68 ng/dl (0.70-1.48) L 11/30/16 10:20 Free T3 < 1.00 pg/mL (1.71-3.71) L 11/30/16 10:20 Urine Clarity Cloudy (Clear) A 11/28/16 20:00 Urine Nitrite Positive (Negative) A 11/28/16 20:00 Urine Microscopic WBC 3-5 per hpf (0-3) H 11/28/16 20:00 Ur Squamous Epith Cells Many per lpf (None-Few) H 11/28/16 20:00 Urine Bacteria Many per hpf (None-Few) H 11/28/16 20:00 Ur Culture Indicated? YES (NO) A 11/28/16 20:00 Protein/Creatinin Ratio 0.38 mg/mg (0-0.20) H 11/29/16 22:30 Urine Total Protein 31 mg/dL (1-14) H 11/29/16 22:30 - Microbiology Findings Microbiology Findings: Microbiology, Last 48 Hours 11/28/16 16:18 Blood Culture - Preliminary Peripheral Venipuncture No growth. 11/28/16 20:00 Urine Culture - Preliminary Urine,Clean Catch Gram Negative Abilio - Clinical Findings Intake & Output: Intake & Output 11/29/16 11/30/16 11/30/16 23:59 07:59 15:59 Intake Total 100 / 100 808 / 808 Output Total 750 / 750 250 / 250 Balance 100 / 100 58 / 58 -250 / -250 Weight 81 kg - Attending Attestation I examined this patient and my medical decision-making was reviewed with the Resident Physician. I agree with the documented findings, disposition and treatment plan as described except to the extent set forth below. Patient seen and examined. Labs, radiology, chart personally reviewed. 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 GI: Nutrition per dietary and GI prophylaxis per routine. I have discussed with director of physical security and he does not think source of her sepsis is from the CT changes in the biliary system and will consult surgery for an opinion whether intra-abdominal pathology could be the source of her septic shock. Heme: DVT prophylaxis per routine. Patient with pancreatic cancer. ID: Continue antibiotics and plan to de-escalation. Patient is requiring vasopressors and suspect hypovolemia is playing a role and continue broad- spectrum antibiotics. and we may need a follow-up lactic acid Renal; urine out put and renal funtion reviewed. Resuscitate with normal saline and monitor sodium level. At this point source of her septic shock with be from urinary tract. Blood cultures. Endorcine: blood glucose is monitored. Change thyroxin to IV and also stress dose steroid Lines: all lines checked and no evidence of infections Skin: skin care to prevent pressure ulcers per nursing routine care I suspect overall prognosis is poor from her underlying pancreatic cancer. I spent 35 min of Critical Care time with this patient. It involved decision making of high complexity to assess, manipulate, and support vital organ system failure and/or to prevent further life threatening deterioration of the patient' s condition. The time involved in the performance of separately reportable procedures was not counted toward critical care time.
[2016-11-30 11:10] LABS: BUN/Creatinine Ratio 17 (6-26); Blood Urea Nitrogen 18 mg/dL (7-20); Calcium 7.8 mg/dL (8.6-10.8); Carbon Dioxide 22 mEq/L (19-29); Chloride 99 mEq/L (98-109); Glucose 122 mg/dL (70-99); Osmolality,Calculated 269 (280-300); Potassium 3.4 mEq/L (3.5-4.5); Sodium 128 mEq/L (136-145); eGFR For African Americans > 60 (> 60); eGFR For Non-African Americans 50 (> 60)
[2016-11-30 11:17] LABS: Eosinophils # 0.2 K/mcL (0.0-0.6); Lymphocytes # 2.1 K/mcL (0.6-4.6); Monocytes # 0.9 K/mcL (0.0-1.3); Neutrophils # 3.7 K/mcL (1.6-8.9)
[2016-11-30 11:18] LABS: Basophilic Stippling 1+ (Not Present); Dohle Bodies Present (Not Present); Platelet Estimate Normal (Normal); Polychromasia 1+ (Not Present); Toxic Granulation Present (Not Present)
[2016-11-30 11:45] LABS: Triiodothyronine (T3) Free < 1.00 pg/mL (1.71-3.71)
[2016-11-30] MEDS: Hydrocortisone Sodium Succ 100 MG/2 ML VIAL IVP SCH ×3 (13:32→23:17)
--- NOTE | 2016-11-30 15:39 | Event Note ---
Date of Encounter: 11/30/16 Time of Encounter: 15:37 I swa the patient and her . She has history of pancreatic CA. Currently she has a complaint of back pain. No abdominal pain. She reports an appetite. Her exam is completely benign. No need for surgical intervention. I have asked the consult to be cancelled. Call if the need arises.
[2016-11-30] MEDS ORDERED: Piperacillin/Tazobactam 3.375 GM VIAL IVPB ONE (16:15)
[2016-11-30] MEDS: *HR* OxyCODONE Immed Rel 5 MG TABLET PO SCH (16:31)
[2016-12-01] MEDS: Norepinephrine 4 MG in 0.9 % Sodium Chloride 250 ML IVC SCH (01:19)
[2016-12-01 04:11] LABS: BUN/Creatinine Ratio 17 (6-26); Blood Urea Nitrogen 15 mg/dL (7-20); Calcium 7.9 mg/dL (8.6-10.8); Carbon Dioxide 19 mEq/L (19-29); Chloride 105 mEq/L (98-109); Glucose 157 mg/dL (70-99); Osmolality,Calculated 278 (280-300); Potassium 4.2 mEq/L (3.5-4.5); Sodium 132 mEq/L (136-145); eGFR For African Americans > 60 (> 60); eGFR For Non-African Americans > 60 (> 60)
[2016-12-01] MEDS: Hydrocortisone Sodium Succ 100 MG/2 ML VIAL IVP SCH ×3 (06:11→18:31)
[2016-12-01] MEDS: *HR* Heparin 5,000 UNIT/ML VIAL SQ SCH ×2 (06:11→18:32)
[2016-12-01] MEDS: *HR* OxyCODONE Immed Rel 5 MG TABLET PO SCH ×2 (06:11→18:31)
[2016-12-01] MEDS ORDERED: 0.9 % Sodium Chloride 500 ML IVC ONE (06:28)
[2016-12-01] MEDS ORDERED: Levothyroxine Sodium 100 MCG VIAL IVP SCH (06:30)
[2016-12-01] MEDS ORDERED: 0.9 % Sodium Chloride 500 ML ONE (06:36)
[2016-12-01] MEDS: Pantoprazole 40 MG VIAL IVP SCH ×2 (08:23→20:21)
[2016-12-01] MEDS: Aspirin Enteric Coated 81 MG Tablet PO SCH (08:24)
[2016-12-01] MEDS: Piperacillin/Tazobactam 3.375 GM in 0.9 % Sodium Chloride Mini Bag 100 ML IVPB SCH ×2 (08:24→15:12)
[2016-12-01] MEDS: Insulin LISPRO 300 UNITS/3 ML VIAL SQ SCH ×4 (08:25→20:28)
[2016-12-01] MEDS: Diltiazem CD (24hr) 120 MG CAPSULE PO SCH (08:30)
--- NOTE | 2016-12-01 08:48 | Pulmonology Progress Note ---
<Suzanne Sim - Last Filed: 12/01/16 09:02> Date of Encounter: 12/01/16 Time of Encounter: 07:00 Assessment and Plan (1) Septic shock Current Visit: Yes Status: Acute Patient stable with minimal hypotension noted. Hypotension most likely due to dehydration as the patient is very dry on physical exam. Will replete fluids and continue stress dose of steroids. d/c ciprofloxacin and start Zosyn continue Flagyl Lactic level WNL, WBC WNL (2) Hyponatremia Current Visit: Yes Status: Acute Improving. 132 today. Most likely due to hypothyroidism and dehydration. Continue levothyroxine and maintenance fluids. (3) Pneumobilia Current Visit: Yes Status: Acute Surgery has been consulted. They believe air was due to large stent placement. (4) Pancreatic cancer Current Visit: Yes Status: Chronic pt currently undergoing chemotherapy, last chemo session was on November pt to resume treatment as outpatient Qualifiers: Pancreatic malignancy location: unspecified Qualified Code(s): C25.9 - Malignant neoplasm of pancreas, unspecified (5) ANTHONY (acute kidney injury) Current Visit: Yes Status: Acute Likely secondary to severe hypotension will hold nephrotoxic agents at this time continue to closely monitor renal function Nephrology has been consulted (6) Enteritis Current Visit: Yes Status: Acute continue IV abx, patient tolerating diet well GI has been consulted (7) DVT prophylaxis Current Visit: Yes Status: Chronic Heparin sq Subjective Principal diagnosis: Hyponatremia Interval history: No events overnight. Patient has now been weaned off of the pressors. Patient feeling better with no complaints this AM. Appetite increasing but urinary output still poor. Will continue to give fluids and add maintenance. Plan to keep patient in the ICU today and keep her off pressors and transfer her to floor tomorrow. Objective PUL Vital signs: Last Vital Signs Temp 97.1 F L 12/01/16 08:15 Pulse 75 12/01/16 06:00 Resp 16 12/01/16 06:00 BP 101/59 12/01/16 06:00 Pulse Ox 97 12/01/16 06:00 General appearance: no acute distress, alert Eyes: nonicteric ENT: oropharynx moist Neck: supple, no JVD Effort: normal Auscultation: bilateral: clear Cardiovascular: regular rate and rhythm Gastrointestinal: normoactive bowel sounds, soft, non-distended Integumentary: normal Extremities: no cyanosis Musculoskeletal: no deformities Gait: normal posture normal mental status, non-focal exam mood appropriate, affect normal Results - Laboratory Findings CBC and BMP: 11/30/16 10:20 12/01/16 03:38 PT/INR, D-dimer PT 16.0 Seconds (9.4-12.1) H 11/29/16 04:50 Abnormal lab findings: Abnormal lab results RBC 2.82 M/mcL (3.82-4.97) L 11/30/16 10:20 Hgb 8.9 g/dL (11.5-15.4) L 11/30/16 10:20 Hct 26.9 % (35.3-44.9) L 11/30/16 10:20 Band Neutrophils % 8.0 % (0-4) H 11/30/16 10:20 Metamyelocytes % 2.0 % (0) H 11/30/16 10:20 Myelocytes % 6.0 % (0) H 11/30/16 10:20 Nucleated RBCs/100 WBC 0.8 /100 WBC (0) H 11/30/16 10:20 Reactive Lymphocytes Present (Not Present) A 11/30/16 03:40 Toxic Granulation Present (Not Present) A 11/30/16 10:20 Dohle Bodies Present (Not Present) A 11/30/16 10:20 Large Platelets Present (Not Present) A 11/30/16 03:40 Polychromasia 1+ (Not Present) A 11/30/16 10:20 Basophilic Stippling 1+ (Not Present) A 11/30/16 10:20 Macrocytosis Present (Not Present) A 11/30/16 03:40 PT 16.0 Seconds (9.4-12.1) H 11/29/16 04:50 APTT 24.7 Seconds (26.0-36.0) L 11/29/16 04:50 Sodium 132 mEq/L (136-145) L 12/01/16 03:38 Glucose 157 mg/dL (70-99) H 12/01/16 03:38 POC Glucose 144 (58-89) H 12/01/16 08:13 Calculated Osmolality 278 (280-300) L 12/01/16 03:38 Calcium 7.9 mg/dL (8.6-10.8) L 12/01/16 03:38 Direct Bilirubin 0.7 mg/dL (0.0-0.5) H 11/28/16 11:35 AST 53 Units/L (5-34) H 11/29/16 04:50 Serum Total Protein 4.5 g/dL (6.0-8.3) L 11/29/16 04:50 Albumin 1.7 g/dL (3.5-5.0) L 11/29/16 04:50 Albumin/Globulin Ratio 0.6 (1.1-2.2) L 11/29/16 04:50 Prealbumin 4.0 mg/dL (16.0-38.0) L 11/30/16 03:40 HDL Cholesterol 24 mg/dL (40-59) L 11/29/16 04:50 Amylase 8 Units/L (25-125) L 11/28/16 11:35 TSH 12.101 mcIU/mL (0.350-4.840) H 11/30/16 03:40 Free T4 0.68 ng/dl (0.70-1.48) L 11/30/16 10:20 Free T3 < 1.00 pg/mL (1.71-3.71) L 11/30/16 10:20 Urine Clarity Cloudy (Clear) A 11/28/16 20:00 Urine Nitrite Positive (Negative) A 11/28/16 20:00 Urine Microscopic WBC 3-5 per hpf (0-3) H 11/28/16 20:00 Ur Squamous Epith Cells Many per lpf (None-Few) H 11/28/16 20:00 Urine Bacteria Many per hpf (None-Few) H 11/28/16 20:00 Ur Culture Indicated? YES (NO) A 11/28/16 20:00 Protein/Creatinin Ratio 0.38 mg/mg (0-0.20) H 11/29/16 22:30 Urine Total Protein 31 mg/dL (1-14) H 11/29/16 22:30 - Microbiology Findings Microbiology Findings: Microbiology, Last 48 Hours 11/28/16 16:18 Blood Culture - Preliminary Peripheral Venipuncture No growth. 11/28/16 20:00 Urine Culture - Preliminary Urine,Clean Catch Gram Negative Abilio - Clinical Findings Intake & Output: Intake & Output 11/30/16 12/01/16 12/01/16 23:59 07:59 15:59 Intake Total 800 / 800 378 / 378 500 / 500 Output Total 100 / 100 200 / 200 100 / 100 Balance 700 / 700 178 / 178 400 / 400 Weight 82.35 kg Consult Discharge Plan - Plan Referrals: Rene Jacob Jr, MD [Primary Care Provider] - <Yuniel Wilcox - Last Filed: 12/01/16 09:59> Date of Encounter: 12/01/16 Objective PUL Vital signs: Last Vital Signs Temp 97.1 F L 12/01/16 08:15 Pulse 99 12/01/16 09:00 Resp 18 12/01/16 09:00 BP 115/59 12/01/16 09:00 Pulse Ox 97 12/01/16 09:00 Results - Laboratory Findings CBC and BMP: 11/30/16 10:20 12/01/16 03:38 PT/INR, D-dimer PT 16.0 Seconds (9.4-12.1) H 11/29/16 04:50 Abnormal lab findings: Abnormal lab results RBC 2.82 M/mcL (3.82-4.97) L 11/30/16 10:20 Hgb 8.9 g/dL (11.5-15.4) L 11/30/16 10:20 Hct 26.9 % (35.3-44.9) L 11/30/16 10:20 Band Neutrophils % 8.0 % (0-4) H 11/30/16 10:20 Metamyelocytes % 2.0 % (0) H 11/30/16 10:20 Myelocytes % 6.0 % (0) H 11/30/16 10:20 Nucleated RBCs/100 WBC 0.8 /100 WBC (0) H 11/30/16 10:20 Reactive Lymphocytes Present (Not Present) A 11/30/16 03:40 Toxic Granulation Present (Not Present) A 11/30/16 10:20 Dohle Bodies Present (Not Present) A 11/30/16 10:20 Large Platelets Present (Not Present) A 11/30/16 03:40 Polychromasia 1+ (Not Present) A 11/30/16 10:20 Basophilic Stippling 1+ (Not Present) A 11/30/16 10:20 Macrocytosis Present (Not Present) A 11/30/16 03:40 PT 16.0 Seconds (9.4-12.1) H 11/29/16 04:50 APTT 24.7 Seconds (26.0-36.0) L 11/29/16 04:50 Sodium 132 mEq/L (136-145) L 12/01/16 03:38 Glucose 157 mg/dL (70-99) H 12/01/16 03:38 POC Glucose 144 (58-89) H 12/01/16 08:13 Calculated Osmolality 278 (280-300) L 12/01/16 03:38 Calcium 7.9 mg/dL (8.6-10.8) L 12/01/16 03:38 Direct Bilirubin 0.7 mg/dL (0.0-0.5) H 11/28/16 11:35 AST 53 Units/L (5-34) H 11/29/16 04:50 Serum Total Protein 4.5 g/dL (6.0-8.3) L 11/29/16 04:50 Albumin 1.7 g/dL (3.5-5.0) L 11/29/16 04:50 Albumin/Globulin Ratio 0.6 (1.1-2.2) L 11/29/16 04:50 Prealbumin 4.0 mg/dL (16.0-38.0) L 11/30/16 03:40 HDL Cholesterol 24 mg/dL (40-59) L 11/29/16 04:50 Amylase 8 Units/L (25-125) L 11/28/16 11:35 TSH 12.101 mcIU/mL (0.350-4.840) H 11/30/16 03:40 Free T4 0.68 ng/dl (0.70-1.48) L 11/30/16 10:20 Free T3 < 1.00 pg/mL (1.71-3.71) L 11/30/16 10:20 Urine Clarity Cloudy (Clear) A 11/28/16 20:00 Urine Nitrite Positive (Negative) A 11/28/16 20:00 Urine Microscopic WBC 3-5 per hpf (0-3) H 11/28/16 20:00 Ur Squamous Epith Cells Many per lpf (None-Few) H 11/28/16 20:00 Urine Bacteria Many per hpf (None-Few) H 11/28/16 20:00 Ur Culture Indicated? YES (NO) A 11/28/16 20:00 Protein/Creatinin Ratio 0.38 mg/mg (0-0.20) H 11/29/16 22:30 Urine Total Protein 31 mg/dL (1-14) H 11/29/16 22:30 - Microbiology Findings Microbiology Findings: Microbiology, Last 48 Hours 11/28/16 20:00 Urine Culture - Final Urine,Clean Catch Pseudomonas aeruginosa 11/28/16 16:18 Blood Culture - Preliminary Peripheral Venipuncture No growth. - Clinical Findings Intake & Output: Intake & Output 11/30/16 12/01/16 12/01/16 23:59 07:59 15:59 Intake Total 800 / 800 378 / 378 630 / 630 Output Total 100 / 100 200 / 200 100 / 100 Balance 700 / 700 178 / 178 530 / 530 Weight 82.35 kg - Attending Attestation I examined this patient and my medical decision-making was reviewed with the Resident Physician. I agree with the documented findings, disposition and treatment plan as described except to the extent set forth below. Patient seen and examined. Labs, radiology, chart personally reviewed. 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 GI: Nutrition per dietary and GI prophylaxis per routine. Discussed with the surgery team Heme: DVT prophylaxis per routine ID: Continue antibiotics and plan to de-escalation Renal; urine out put and renal funtion reviewed Endorcine: blood glucose is monitored. Continue stress dose steroid for now and change IV thyroxine to oral Lines: all lines checked and no evidence of infections Skin: skin care to prevent pressure ulcers per nursing routine care The patient remain off vasopressors and she can be transferred out of ICU.
[2016-12-01] MEDS: 0.9 % Sodium Chloride 1,000 ML IVC SCH ×2 (12:40→20:19)
--- NOTE | 2016-12-01 14:22 | Nephrology Progress Note ---
Date of Encounter: 12/01/16 Time of Encounter: 14:17 - Assessment and Plan (1) ANTHONY (acute kidney injury) Current Visit: Yes Status: Acute Secondary to shock. Resolved. (2) Electrolyte abnormality Current Visit: Yes Status: Acute Replace electrolytes as needed. (3) Enteritis Current Visit: Yes Status: Acute Per the primary team. (4) Hyponatremia Current Visit: Yes Status: Acute Intravenous Carrier solutions changed to 0.9. Improving. (5) Septic shock Current Visit: Yes Status: Acute Etiology is not completely clear at this time. This is improved with pressor support. pressors discontinued. Antibiotics per primary team. (6) Pancreatic cancer Current Visit: Yes Status: Chronic Per primary care team. Qualifiers: Pancreatic malignancy location: unspecified Qualified Code(s): C25.9 - Malignant neoplasm of pancreas, unspecified Subjective Principal diagnosis: Hyponatremia Interval history: Patient was seen and evaluated. She denies any new symptoms. She reports that her appetite has increased slightly. She denies chest pain or shortness of breath. She only has minimal abdominal discomfort. Her review of system otherwise appears to be stable. Objective - Vital Signs Vital signs: Vital Signs Temp Pulse Resp BP Pulse Ox 12/01/16 13:00 129 16 108/65 96 12/01/16 12:01 97.6 F 12/01/16 12:00 100 16 113/77 98 12/01/16 10:00 95 12/01/16 09:00 99 18 115/59 97 12/01/16 08:15 97.1 F L 12/01/16 08:00 92 16 120/72 95 12/01/16 06:00 75 16 101/59 97 12/01/16 05:00 77 12 97/52 97 12/01/16 04:00 74 16 105/64 97 12/01/16 03:45 70 12/01/16 03:30 96.9 F L 12/01/16 03:00 75 14 94/58 96 12/01/16 02:00 71 12 88/61 97 12/01/16 01:00 72 12 89/57 96 12/01/16 00:07 96.8 F L 12/01/16 00:00 75 14 82/51 97 11/30/16 23:00 78 12 88/53 96 11/30/16 22:00 90 18 100/62 91 11/30/16 21:00 80 14 101/57 97 11/30/16 20:00 79 12 107/58 95 11/30/16 19:30 100 11/30/16 19:25 97.2 F L 11/30/16 19:00 100 18 106/54 96 11/30/16 18:00 94 23 98/67 96 11/30/16 17:00 90 16 94/53 95 11/30/16 16:00 84 18 95/44 96 11/30/16 15:00 93 18 95/60 96 Intake and Output 11/30/16 12/01/16 12/01/16 23:59 07:59 15:59 Intake Total 800 / 800 378 / 378 850 / 850 Output Total 100 / 100 200 / 200 175 / 175 Balance 700 / 700 178 / 178 675 / 675 Intake: IV Fluids 100 / 100 378 / 378 610 / 610 0.9 % Sodium Chloride 500 500 / 500 ML @ 1875 mls/hr IVC . Q16M ONE Rx#:[id number] Levophed 4 MG In 0.9 % 378 / 378 10 / 10 Sodium Chloride 250 ML @ 2 MCG/MIN 7.62 mls/hr IVC CONT DONALD Rx#:[id number] Zosyn 3.375 GM In 0.9 % 100 / 100 100 / 100 Sodium Chloride (Mini-Bag +) 100 ML @ 25 mls/hr IVPB Q8HR DONALD Rx#: [id number] Oral 700 / 700 240 / 240 Output: Catheter 100 / 100 200 / 200 175 / 175 Other: Meal Dinner Lunch Percent of Meal Consumed 75% 50% Stool Size Moderate Small Moderate Stool Consistency loose loose liquid Stool Color Brown Brown Brown Yellow # Bowel Movements 1 1 Weight 82.35 kg Blood Glucose* 196 191 160 Patient Weight 12/01/16 23:59 Weight 82.35 kg - General Appearance General appearance: Present: well-developed, well-nourished EENT: Present: ATNC Neck: Present: supple Additional Comments: Respirations are unlabored. Additional Comments: tachycardia Neurologic: Present: alert and oriented x3 Musculoskeletal: Present: no cyanosis Psychiatric: Present: mood/affect appropriate - Lab 11/30/16 10:20 12/01/16 03:38 Most recent lab results Calcium 7.9 mg/dL (8.6-10.8) L 12/01/16 03:38 Phosphorus 3.2 mg/dL (2.3-4.7) 11/30/16 03:40 Magnesium 1.8 mg/dL (1.6-2.6) 11/30/16 03:40 Urine Creatinine 82 mg/dL 11/29/16 22:30 Urine Sodium 38.0 mEq/L 11/29/16 22:30 Urine Total Protein 31 mg/dL (1-14) H 11/29/16 22:30 Consult Discharge Plan - Plan Referrals: Rene Jacob Jr, MD [Primary Care Provider] -
[2016-12-01] MEDS: *HR* HYDROcodone/Acet 5/325 mg TABLET PO PRN (15:13)
[2016-12-01] MEDS: Ondansetron 4 MG/2 ML VIAL IVP PRN (15:26)
[2016-12-02] MEDS: Hydrocortisone Sodium Succ 100 MG/2 ML VIAL IVP SCH ×2 (00:18→05:48)
[2016-12-02] MEDS: Piperacillin/Tazobactam 3.375 GM in 0.9 % Sodium Chloride Mini Bag 100 ML IVPB SCH ×4 (00:22→23:33)
[2016-12-02] MEDS: *HR* HYDROcodone/Acet 5/325 mg TABLET PO PRN ×2 (00:28→20:12)
[2016-12-02] MEDS: *HR* Heparin 5,000 UNIT/ML VIAL SQ SCH ×2 (05:50→18:35)
[2016-12-02] MEDS: *HR* OxyCODONE Immed Rel 5 MG TABLET PO SCH ×2 (05:52→18:35)
[2016-12-02] MEDS: 0.9 % Sodium Chloride 1,000 ML IVC SCH ×2 (05:53→08:34)
[2016-12-02] MEDS: Diltiazem CD (24hr) 120 MG CAPSULE PO SCH (07:38)
[2016-12-02] MEDS: Aspirin Enteric Coated 81 MG Tablet PO SCH (07:38)
[2016-12-02] MEDS: Pantoprazole 40 MG VIAL IVP SCH (07:38)
[2016-12-02] MEDS: Insulin LISPRO 300 UNITS/3 ML VIAL SQ SCH ×4 (08:35→20:07)
[2016-12-02] MEDS: Norepinephrine 4 MG in 0.9 % Sodium Chloride 250 ML IVC SCH (08:35)
--- NOTE | 2016-12-02 09:22 | Pulmonology Progress Note ---
<Suzanne Sim - Last Filed: 12/02/16 09:29> Date of Encounter: 12/02/16 Time of Encounter: 07:00 Assessment and Plan (1) Septic shock Current Visit: Yes Status: Acute Patient stable with vital signgs WNL. Zosyn and flagyl on board. Lactic level WNL, WBC WNL Patient clinically significantly better and okay to be transferred to the floor (2) Hyponatremia Current Visit: Yes Status: Acute Improving. Most likely due to hypothyroidism and dehydration. Continue levothyroxine. Maintenance fluids stopped now that patient is eating. (3) Pneumobilia Current Visit: Yes Status: Acute Surgery has been consulted. They believe air was due to large stent placement. (4) Pancreatic cancer Current Visit: Yes Status: Chronic pt currently undergoing chemotherapy, last chemo session was on November pt to resume treatment as outpatient Qualifiers: Pancreatic malignancy location: unspecified Qualified Code(s): C25.9 - Malignant neoplasm of pancreas, unspecified (5) ANTHONY (acute kidney injury) Current Visit: Yes Status: Acute Likely secondary to severe hypotension Nephrology has been consulted Patient's creatnine and GFR now WNL (6) Enteritis Current Visit: Yes Status: Acute continue IV abx, patient tolerating diet well GI has been consulted (7) DVT prophylaxis Current Visit: Yes Status: Chronic Heparin sq Subjective Principal diagnosis: Hyponatremia Interval history: No events overnight. Patient has now been weaned off of the pressors. Patient feeling better with no complaints this AM. Appetite increasing with better urine output. Plan to transfer to floor today. Objective PUL Vital signs: Last Vital Signs Temp 97.6 F 12/02/16 08:36 Pulse 106 12/02/16 09:00 Resp 18 12/02/16 09:00 BP 132/80 12/02/16 08:35 Pulse Ox 97 12/02/16 09:00 General appearance: no acute distress, alert Eyes: nonicteric ENT: oropharynx moist Neck: supple, no JVD Effort: normal Auscultation: bilateral: clear Cardiovascular: regular rate and rhythm Gastrointestinal: normoactive bowel sounds, soft, non-distended Integumentary: normal Extremities: no cyanosis, no edema Musculoskeletal: no deformities Gait: normal posture normal mental status, non-focal exam mood appropriate, affect normal Results - Laboratory Findings CBC and BMP: 11/30/16 10:20 12/01/16 03:38 PT/INR, D-dimer PT 16.0 Seconds (9.4-12.1) H 11/29/16 04:50 Abnormal lab findings: Abnormal lab results RBC 2.82 M/mcL (3.82-4.97) L 11/30/16 10:20 Hgb 8.9 g/dL (11.5-15.4) L 11/30/16 10:20 Hct 26.9 % (35.3-44.9) L 11/30/16 10:20 Band Neutrophils % 8.0 % (0-4) H 11/30/16 10:20 Metamyelocytes % 2.0 % (0) H 11/30/16 10:20 Myelocytes % 6.0 % (0) H 11/30/16 10:20 Nucleated RBCs/100 WBC 0.8 /100 WBC (0) H 11/30/16 10:20 Reactive Lymphocytes Present (Not Present) A 11/30/16 03:40 Toxic Granulation Present (Not Present) A 11/30/16 10:20 Dohle Bodies Present (Not Present) A 11/30/16 10:20 Large Platelets Present (Not Present) A 11/30/16 03:40 Polychromasia 1+ (Not Present) A 11/30/16 10:20 Basophilic Stippling 1+ (Not Present) A 11/30/16 10:20 Macrocytosis Present (Not Present) A 11/30/16 03:40 PT 16.0 Seconds (9.4-12.1) H 11/29/16 04:50 APTT 24.7 Seconds (26.0-36.0) L 11/29/16 04:50 Sodium 132 mEq/L (136-145) L 12/01/16 03:38 Glucose 157 mg/dL (70-99) H 12/01/16 03:38 POC Glucose 138 (58-89) H 12/02/16 08:06 Calculated Osmolality 278 (280-300) L 12/01/16 03:38 Calcium 7.9 mg/dL (8.6-10.8) L 12/01/16 03:38 Direct Bilirubin 0.7 mg/dL (0.0-0.5) H 11/28/16 11:35 AST 53 Units/L (5-34) H 11/29/16 04:50 Serum Total Protein 4.5 g/dL (6.0-8.3) L 11/29/16 04:50 Albumin 1.7 g/dL (3.5-5.0) L 11/29/16 04:50 Albumin/Globulin Ratio 0.6 (1.1-2.2) L 11/29/16 04:50 Prealbumin 4.0 mg/dL (16.0-38.0) L 11/30/16 03:40 HDL Cholesterol 24 mg/dL (40-59) L 11/29/16 04:50 Amylase 8 Units/L (25-125) L 11/28/16 11:35 TSH 12.101 mcIU/mL (0.350-4.840) H 11/30/16 03:40 Free T4 0.68 ng/dl (0.70-1.48) L 11/30/16 10:20 Free T3 < 1.00 pg/mL (1.71-3.71) L 11/30/16 10:20 Urine Clarity Cloudy (Clear) A 11/28/16 20:00 Urine Nitrite Positive (Negative) A 11/28/16 20:00 Urine Microscopic WBC 3-5 per hpf (0-3) H 11/28/16 20:00 Ur Squamous Epith Cells Many per lpf (None-Few) H 11/28/16 20:00 Urine Bacteria Many per hpf (None-Few) H 11/28/16 20:00 Ur Culture Indicated? YES (NO) A 11/28/16 20:00 Protein/Creatinin Ratio 0.38 mg/mg (0-0.20) H 11/29/16 22:30 Urine Total Protein 31 mg/dL (1-14) H 11/29/16 22:30 - Microbiology Findings Microbiology Findings: Microbiology, Last 48 Hours 11/28/16 20:00 Urine Culture - Final Urine,Clean Catch Pseudomonas aeruginosa 11/28/16 16:18 Blood Culture - Preliminary Peripheral Venipuncture No growth. - Clinical Findings Intake & Output: Intake & Output 12/01/16 12/02/16 12/02/16 23:59 07:59 15:59 Intake Total 1220 / 1220 1014 / 1014 86 / 86 Output Total 100 / 100 75 / 75 125 / 125 Balance 1120 / 1120 939 / 939 -39 / -39 Weight 50 kg Consult Discharge Plan - Plan Referrals: Rene Jacob Jr, MD [Primary Care Provider] - <Yuniel Wilcox - Last Filed: 12/02/16 09:57> Date of Encounter: 12/02/16 Objective PUL Vital signs: Last Vital Signs Temp 97.6 F 12/02/16 08:36 Pulse 106 12/02/16 09:00 Resp 18 12/02/16 09:00 BP 132/80 12/02/16 08:35 Pulse Ox 97 12/02/16 09:00 Results - Laboratory Findings CBC and BMP: 11/30/16 10:20 12/01/16 03:38 PT/INR, D-dimer PT 16.0 Seconds (9.4-12.1) H 11/29/16 04:50 Abnormal lab findings: Abnormal lab results RBC 2.82 M/mcL (3.82-4.97) L 11/30/16 10:20 Hgb 8.9 g/dL (11.5-15.4) L 11/30/16 10:20 Hct 26.9 % (35.3-44.9) L 11/30/16 10:20 Band Neutrophils % 8.0 % (0-4) H 11/30/16 10:20 Metamyelocytes % 2.0 % (0) H 11/30/16 10:20 Myelocytes % 6.0 % (0) H 11/30/16 10:20 Nucleated RBCs/100 WBC 0.8 /100 WBC (0) H 11/30/16 10:20 Reactive Lymphocytes Present (Not Present) A 11/30/16 03:40 Toxic Granulation Present (Not Present) A 11/30/16 10:20 Dohle Bodies Present (Not Present) A 11/30/16 10:20 Large Platelets Present (Not Present) A 11/30/16 03:40 Polychromasia 1+ (Not Present) A 11/30/16 10:20 Basophilic Stippling 1+ (Not Present) A 11/30/16 10:20 Macrocytosis Present (Not Present) A 11/30/16 03:40 PT 16.0 Seconds (9.4-12.1) H 11/29/16 04:50 APTT 24.7 Seconds (26.0-36.0) L 11/29/16 04:50 Sodium 132 mEq/L (136-145) L 12/01/16 03:38 Glucose 157 mg/dL (70-99) H 12/01/16 03:38 POC Glucose 138 (58-89) H 12/02/16 08:06 Calculated Osmolality 278 (280-300) L 12/01/16 03:38 Calcium 7.9 mg/dL (8.6-10.8) L 12/01/16 03:38 Direct Bilirubin 0.7 mg/dL (0.0-0.5) H 11/28/16 11:35 AST 53 Units/L (5-34) H 11/29/16 04:50 Serum Total Protein 4.5 g/dL (6.0-8.3) L 11/29/16 04:50 Albumin 1.7 g/dL (3.5-5.0) L 11/29/16 04:50 Albumin/Globulin Ratio 0.6 (1.1-2.2) L 11/29/16 04:50 Prealbumin 4.0 mg/dL (16.0-38.0) L 11/30/16 03:40 HDL Cholesterol 24 mg/dL (40-59) L 11/29/16 04:50 Amylase 8 Units/L (25-125) L 11/28/16 11:35 TSH 12.101 mcIU/mL (0.350-4.840) H 11/30/16 03:40 Free T4 0.68 ng/dl (0.70-1.48) L 11/30/16 10:20 Free T3 < 1.00 pg/mL (1.71-3.71) L 11/30/16 10:20 Urine Clarity Cloudy (Clear) A 11/28/16 20:00 Urine Nitrite Positive (Negative) A 11/28/16 20:00 Urine Microscopic WBC 3-5 per hpf (0-3) H 11/28/16 20:00 Ur Squamous Epith Cells Many per lpf (None-Few) H 11/28/16 20:00 Urine Bacteria Many per hpf (None-Few) H 11/28/16 20:00 Ur Culture Indicated? YES (NO) A 11/28/16 20:00 Protein/Creatinin Ratio 0.38 mg/mg (0-0.20) H 11/29/16 22:30 Urine Total Protein 31 mg/dL (1-14) H 11/29/16 22:30 - Microbiology Findings Microbiology Findings: Microbiology, Last 48 Hours 11/28/16 20:00 Urine Culture - Final Urine,Clean Catch Pseudomonas aeruginosa 11/28/16 16:18 Blood Culture - Preliminary Peripheral Venipuncture No growth. - Clinical Findings Intake & Output: Intake & Output 12/01/16 12/02/16 12/02/16 23:59 07:59 15:59 Intake Total 1220 / 1220 1014 / 1014 86 / 86 Output Total 100 / 100 75 / 75 125 / 125 Balance 1120 / 1120 939 / 939 -39 / -39 Weight 50 kg - Attending Attestation I examined this patient and my medical decision-making was reviewed with the Resident Physician. I agree with the documented findings, disposition and treatment plan as described except to the extent set forth below. Patient seen and examined. Labs, radiology, chart personally reviewed. 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 DC Bernstein catheter Endorcine: blood glucose is monitored. Stop steroid Lines: all lines checked and no evidence of infections Skin: skin care to prevent pressure ulcers per nursing routine care
[2016-12-02] MEDS: Ondansetron 4 MG/2 ML VIAL IVP PRN (10:40)
[2016-12-02 12:09] LABS: BUN/Creatinine Ratio 18 (6-26); Blood Urea Nitrogen 16 mg/dL (7-20); Calcium 7.9 mg/dL (8.6-10.8); Carbon Dioxide 20 mEq/L (19-29); Chloride 110 mEq/L (98-109); Glucose 194 mg/dL (70-99); Osmolality,Calculated 286 (280-300); Potassium 3.8 mEq/L (3.5-4.5); Sodium 135 mEq/L (136-145); eGFR For African Americans > 60 (> 60); eGFR For Non-African Americans > 60 (> 60)
--- NOTE | 2016-12-02 12:17 | Nephrology Progress Note ---
Date of Encounter: 12/02/16 Time of Encounter: 12:14 - Assessment and Plan (1) Hyponatremia Current Visit: Yes Status: Acute Intravenous Carrier solutions changed to 0.9. Patient on thyroid replacement. Improving. Almost normal. Will sign off. Call with questions or concerns. (2) ANTHONY (acute kidney injury) Current Visit: Yes Status: Acute Secondary to shock. Resolved. (3) Electrolyte abnormality Current Visit: Yes Status: Acute Replace electrolytes as needed. (4) Enteritis Current Visit: Yes Status: Acute Per the primary team. Improving with antibiotics. (5) Septic shock Current Visit: Yes Status: Acute Etiology is not completely clear at this time, but likely related to enteritis. This is improved with pressor support and antibiotics.. pressors discontinued. Antibiotics per primary team. Resolved. (6) Pancreatic cancer Current Visit: Yes Status: Chronic Per primary care team. Qualifiers: Pancreatic malignancy location: unspecified Qualified Code(s): C25.9 - Malignant neoplasm of pancreas, unspecified Subjective Principal diagnosis: Hyponatremia Interval history: Patient was seen. She denies any new symptoms. She is sitting in a chair eating lunch. Her review of system otherwise appears to be stable. Objective - Vital Signs Vital signs: Vital Signs Temp Pulse Resp BP Pulse Ox 12/02/16 11:08 90 17 110/73 97 12/02/16 10:04 105 19 121/98 95 12/02/16 09:00 106 18 97 12/02/16 08:36 97.6 F 12/02/16 08:35 104 15 132/80 95 12/02/16 07:43 93 14 103/60 98 12/02/16 06:00 95 16 123/67 98 12/02/16 05:00 96 20 117/72 97 12/02/16 04:54 97.2 F L 12/02/16 04:00 96.9 F L 89 14 109/66 99 12/02/16 03:00 88 20 107/73 98 12/02/16 02:00 81 12 101/65 96 12/02/16 01:00 88 12 111/67 96 12/02/16 00:00 93 22 114/76 97 12/01/16 23:59 96.7 F L 12/01/16 23:00 101 16 112/69 94 12/01/16 22:00 76 16 104/61 98 12/01/16 21:25 96.9 F L 12/01/16 21:00 96 14 104/50 97 12/01/16 20:00 97.4 F L 94 18 91/72 98 12/01/16 19:00 98 12 104/69 99 12/01/16 18:00 89 16 105/65 96 12/01/16 17:00 95 20 118/69 96 12/01/16 16:00 85 15 111/59 96 12/01/16 15:15 96.9 F L 12/01/16 15:00 89 20 104/66 96 12/01/16 14:00 103 18 107/55 100 12/01/16 13:00 129 16 108/65 96 Intake and Output 12/01/16 12/02/16 12/02/16 23:59 07:59 15:59 Intake Total 1220 / 1220 1014 / 1014 286 / 286 Output Total 100 / 100 75 / 75 125 / 125 Balance 1120 / 1120 939 / 939 161 / 161 Intake: IV Fluids 1100 / 1100 1014 / 1014 86 / 86 0.9 % Sodium Chloride 1, 1000 / 1000 914 / 914 86 / 86 000 ML @ 100 mls/hr IVC . Q10H [facility] Rx#:[id number] Zosyn 3.375 GM In 0.9 % 100 / 100 100 / 100 Sodium Chloride (Mini-Bag +) 100 ML @ 25 mls/hr IVPB Q8HR [facility] Rx#: [id number] Oral 120 / 120 0 / 0 200 / 200 Output: Urine 0 / 0 Catheter 100 / 100 75 / 75 125 / 125 Other: Meal Dinner Breakfast Percent of Meal Consumed 100% 100% Stool Size Large Stool Consistency loose soft Stool Color Brown # Bowel Movements 1 Weight 50 kg Blood Glucose* 159 168 138 - General Appearance General appearance: Present: well-developed, chronically ill, frail EENT: Present: ATNC Neck: Present: supple Additional Comments: respirations are unlabored. Cardiology: Present: regular rate Neurologic: Present: alert and oriented x3 Psychiatric: Present: mood/affect appropriate - Lab 11/30/16 10:20 12/02/16 11:38 Most recent lab results Calcium 7.9 mg/dL (8.6-10.8) L 12/02/16 11:38 Phosphorus 3.2 mg/dL (2.3-4.7) 11/30/16 03:40 Magnesium 1.8 mg/dL (1.6-2.6) 11/30/16 03:40 Urine Creatinine 82 mg/dL 11/29/16 22:30 Urine Sodium 38.0 mEq/L 11/29/16 22:30 Urine Total Protein 31 mg/dL (1-14) H 11/29/16 22:30 Consult Discharge Plan - Plan Referrals: Rene Jacob Jr, MD [Primary Care Provider] -
[2016-12-02] MEDS ORDERED: *HR* HYDROcodone/Acet 5/325 mg TABLET PO PRN (20:43)
[2016-12-02] MEDS ORDERED: Acetaminophen 325 MG TABLET PO PRN (20:43)
[2016-12-02] MEDS ORDERED: *HR* HYDROmorphone (PF) 1 MG/ML SYRINGE IVP PRN (20:43)
[2016-12-02] MEDS: Magic Mouthwash 10 ML UD Cup PO PRN (23:33)
[2016-12-03] MEDS: *HR* OxyCODONE Immed Rel 5 MG TABLET PO SCH ×2 (05:39→17:48)
[2016-12-03] MEDS: *HR* Heparin 5,000 UNIT/ML VIAL SQ SCH ×2 (05:41→17:49)
[2016-12-03] MEDS: Aspirin Enteric Coated 81 MG Tablet PO SCH (09:12)
[2016-12-03] MEDS: Piperacillin/Tazobactam 3.375 GM in 0.9 % Sodium Chloride Mini Bag 100 ML IVPB SCH ×2 (09:13→16:45)
[2016-12-03] MEDS: Diltiazem CD (24hr) 120 MG CAPSULE PO SCH (09:13)
[2016-12-03] MEDS: Magic Mouthwash 10 ML UD Cup PO PRN (09:30)
[2016-12-03] MEDS: Diphenoxylate/Atropine 1 TAB TABLET PO PRN (09:30)
[2016-12-04] MEDS: Piperacillin/Tazobactam 3.375 GM in 0.9 % Sodium Chloride Mini Bag 100 ML IVPB SCH ×3 (00:15→16:32)
[2016-12-04] MEDS: *HR* OxyCODONE Immed Rel 5 MG TABLET PO SCH ×2 (06:36→18:25)
[2016-12-04] MEDS: Diphenoxylate/Atropine 1 TAB TABLET PO PRN (06:36)
[2016-12-04] MEDS: *HR* Heparin 5,000 UNIT/ML VIAL SQ SCH ×2 (06:36→18:26)
[2016-12-04] MEDS: Diltiazem CD (24hr) 120 MG CAPSULE PO SCH (07:50)
[2016-12-04] MEDS: Aspirin Enteric Coated 81 MG Tablet PO SCH (07:50)
[2016-12-04 10:56] LABS: Hematocrit 30.5 % (35.3-44.9); Hemoglobin 9.7 g/dL (11.5-15.4); Mean Corpuscular HGB Conc 31.8 g/dL (31.6-35.5); Mean Corpuscular Hemoglobin 31.8 pg (28.0-33.3); Mean Platelet Volume 9.4 fL (9.4-12.4); Nucleated Red Blood Cells 1.1 /100 WBC (0); Platelet Count 349 K/mcL (140-400); Red Blood Count 3.05 M/mcL (3.82-4.97); Red Cell Distribution Width 15.9 % (11.5-14.5)
[2016-12-04 11:01] LABS: BUN/Creatinine Ratio 19 (6-26); Blood Urea Nitrogen 18 mg/dL (7-20); Calcium 7.7 mg/dL (8.6-10.8); Carbon Dioxide 20 mEq/L (19-29); Chloride 110 mEq/L (98-109); Glucose 151 mg/dL (70-99); Osmolality,Calculated 289 (280-300); Potassium 3.2 mEq/L (3.5-4.5); Sodium 137 mEq/L (136-145); eGFR For African Americans > 60 (> 60); eGFR For Non-African Americans 58 (> 60)
--- NOTE | 2016-12-04 11:27 | Internal Med Progress Note ---
<CatarinaterriHarpreet - Last Filed: 12/04/16 18:23> Date of Encounter: 12/04/16 Time of Encounter: 10:30 - Assessment and plan (1) Septic shock Current Visit: Yes Status: Acute Assessment and plan: Patient is normotensive now, not tachypnic or tachycardic. On today's CBC patient's WBC are 20.7 with 12% bands. Patient has not had a CBC since 11/30 Patient has not had an elevated white count this admission until today. During patient's transition out of the ICU patient's Flagyl was not continued, No note was written on patient yesterday. Restarted patient's Flagyl, continue patient's zosyn. Continue to monitor. Clinically patient feels well and seems well and is eager to go home. (2) Hyponatremia Current Visit: Yes Status: Acute Assessment and plan: Resolved. Likely multifactorial in nature. Patient's Na 137 today. Continue to monitor (3) Enteritis Current Visit: Yes Status: Acute Assessment and plan: Patient reports improvement in abd pain. continue IV abx See septic shock. (4) Atrial fibrillation Current Visit: Yes Status: Chronic Assessment and plan: Chronic, Stable. Continue patient's Cardiazem and ASA Qualifiers: Atrial fibrillation type: chronic Qualified Code(s): I48.2 - Chronic atrial fibrillation (5) Diabetes Current Visit: Yes Status: Chronic Assessment and plan: Patient has not been on SSI or accuchecks since being in the ICU. blood sugar was 151 today. Will restart accuchecks and SSI. continue regular diet with supplements per nutrition. Qualifiers: Diabetes mellitus type: type 2 Diabetes mellitus complication status: without complication Diabetes mellitus shelter insulin use: without bed bug exterminator use Qualified Code(s): E11.9 - Type 2 diabetes mellitus without complications (6) HTN (hypertension) Current Visit: Yes Status: Chronic Assessment and plan: Patient has been normotensive off pressors since transferred to the floor. Continue to monitor continue to hold patient's metoprolol. Qualifiers: Hypertension type: essential hypertension Qualified Code(s): I10 - Essential (primary) hypertension (7) Thyroid disease Current Visit: Yes Status: Chronic Assessment and plan: Hx of Thyroid dz with removal of nodules from thyroid. On Synthroid at home. Will continue home Synthroid. (8) ANTHONY (acute kidney injury) Current Visit: Yes Status: Acute Assessment and plan: Resolved Cr. 1.22 on 11/30. Likely secondary to hypotension. Cr have been normal since then. Nephrology was consulted and has now signed off. Continue to monitor. (9) Pneumobilia Current Visit: Yes Status: Acute Assessment and plan: Pt has pneumobilia on CT scan on 11/28 Likely secondary to stent placement According to last primary team note on 12/02 surgery has been consulted however based on orders looks like this was cancelled. Do not think needs surgery consult at this time. continue to monitor. (10) Pancreatic cancer Current Visit: Yes Status: Chronic Assessment and plan: Patient has a history of pancreatic cancer Follows with [facility] Currently undergoing chemo therapy Last dose November 22. Pt to resume treatment as outpatient. Qualifiers: Pancreatic malignancy location: unspecified Qualified Code(s): C25.9 - Malignant neoplasm of pancreas, unspecified (11) Electrolyte abnormality Current Visit: Yes Status: Acute Assessment and plan: Patient has been Hypokalemic and hypomagnesic earlier during admission. K 3.2 today. Repleted. Will check Mag tomorrow as this needed repletion earlier in admission but has not been checked in several days. - Subjective Interval history: Patient transferred to the floor yesterday. Patient reports feeling ok and wanting to go home. She denies Pain any where. She reports swelling in her legs improved. She denies SOB, N, V. - Constitutional Vitals: Temp Pulse Resp BP Pulse Ox 97.8 F 72 17 112/61 96 12/04/16 11:04 12/04/16 11:04 12/04/16 11:04 12/04/16 11:04 12/04/16 11:04 General appearance: Present: cooperative, A&O X 3 (frail appearing elderly female), pleasant, obese, answers questions appropriately - Head Head exam: Present: atraumatic, normocephalic Additional comments: Bald - Eye Eye exam: Present: PERRL, conjuntiva pink, sclera anicteric Pupils: Present: PERRL - Neck Neck exam general surgery: Present: supple, trachea midline - Respiratory Respiratory exam: Present: CTAB. Absent: accessory muscle use, rales, rhonchi, wheezes - Cardiovascular Cardiovascular exam: Present: RRR, +S1, +S2. Absent: diastolic murmur, gallop, rubs, systolic murmur - GI/Abdominal GI/Abdominal exam: Present: normal bowel sounds, soft, no peritoneal signs. Absent: distended, tenderness - Extremities Exam Extremities exam: Present: pedal edema, warm. Absent: calf tenderness, cyanotic - Neurological Exam Neurological exam: Present: alert, oriented X3. Absent: facial droop, speech deficit - Skin Skin exam: Present: dry, intact Internal Medicine: Result - Labs CBC & Chem 7: 12/04/16 10:43 12/04/16 10:43 Labs: BMP 12/04/16 10:43 Sodium 137 Potassium 3.2 L Chloride 110 H Carbon Dioxide 20 BUN 18 Creatinine 0.94 Glucose 151 H Calcium 7.7 L - ABG Interpretation ABG results: PT/INR, D-dimer PT 16.0 Seconds (9.4-12.1) H 11/29/16 04:50 Consult Discharge Plan - Plan Referrals: Rene Jacob Jr, MD [Primary Care Provider] - <Matthew Valles P - Last Filed: 12/04/16 18:35> Date of Encounter: 12/04/16 - Constitutional Vitals: Temp Pulse Resp BP Pulse Ox 98.0 F 89 17 117/66 98 12/04/16 15:30 12/04/16 15:30 12/04/16 15:30 12/04/16 15:30 12/04/16 15:30 Internal Medicine: Result - Labs CBC & Chem 7: 12/04/16 10:43 12/04/16 10:43 Labs: Short CBC 12/04/16 Range/Units 10:43 WBC 20.7 H D (4.3-11.1) K/mcL Hgb 9.7 L (11.5-15.4) g/dL Hct 30.5 L (35.3-44.9) % Plt Count 349 (140-400) K/mcL Neutrophils # 14.1 H (1.6-8.9) K/mcL BMP 12/04/16 10:43 Sodium 137 Potassium 3.2 L Chloride 110 H Carbon Dioxide 20 BUN 18 Creatinine 0.94 Glucose 151 H Calcium 7.7 L - ABG Interpretation ABG results: PT/INR, D-dimer PT 16.0 Seconds (9.4-12.1) H 11/29/16 04:50 - Attending Attestation I examined this patient and my medical decision-making was reviewed with the Resident Physician. I agree with the documented findings, disposition and treatment plan as described except to the extent set forth below.
[2016-12-04] MEDS: Potassium Chloride Elixir 20 MEQ/15 ML UDC PO ONE ×2 (12:33→12:47)
[2016-12-04 13:07] LABS: Monocytes # 1.2 K/mcL (0.0-1.3); Neutrophils # 14.1 K/mcL (1.6-8.9); Platelet Estimate Normal (Normal); Reactive Lymphocytes Present (Not Present)
[2016-12-04] MEDS ORDERED: *HR* Dextrose 50 % in Water (Syg) 50 ML SYRINGE IVP PRN (18:24)
[2016-12-04] MEDS ORDERED: Dextrose Gel 15 GM PO PRN ×2 (18:24)
[2016-12-04] MEDS ORDERED: D5% in Water 1,000 ML IVC PRN (18:24)
[2016-12-04] MEDS ORDERED: Insulin LISPRO 300 UNITS/3 ML VIAL SQ SCH (21:00)
[2016-12-05] MEDS ORDERED: Melatonin 3 MG TABLET PO PRN (00:11)
[2016-12-05] MEDS: MetroNIDAZOLE 500 MG/100 ML 500 MG/100 ML BAG IVPB SCH ×4 (00:44→23:39)
[2016-12-05] MEDS: Piperacillin/Tazobactam 3.375 GM in 0.9 % Sodium Chloride Mini Bag 100 ML IVPB SCH ×4 (00:44→23:38)
[2016-12-05 06:11] LABS: Hematocrit 27.4 % (35.3-44.9); Hemoglobin 8.8 g/dL (11.5-15.4); Immature Platelets 3.4 % (1.1-6.1); Mean Corpuscular HGB Conc 32.1 g/dL (31.6-35.5); Mean Corpuscular Hemoglobin 32.4 pg (28.0-33.3); Mean Corpuscular Volume 100.7 fL (83.0-100.0); Mean Platelet Volume 10.1 fL (9.4-12.4); Nucleated Red Blood Cells 0.8 /100 WBC (0); Platelet Count 384 K/mcL (140-400); Red Blood Count 2.72 M/mcL (3.82-4.97); Red Cell Distribution Width 15.9 % (11.5-14.5)
[2016-12-05] MEDS: *HR* Heparin 5,000 UNIT/ML VIAL SQ SCH ×2 (06:46→17:55)
[2016-12-05] MEDS: *HR* OxyCODONE Immed Rel 5 MG TABLET PO SCH ×2 (06:47→17:40)
[2016-12-05 07:07] LABS: Lymphocytes # 6.6 K/mcL (0.6-4.6); Monocytes # 3.3 K/mcL (0.0-1.3); Neutrophils # 9.1 K/mcL (1.6-8.9)
[2016-12-05 07:08] LABS: Platelet Estimate Normal (Normal); Smudge Cells Present (Not Present)
[2016-12-05] MEDS ORDERED: Insulin LISPRO 300 UNITS/3 ML VIAL SQ SCH (07:30)
[2016-12-05 07:31] LABS: BUN/Creatinine Ratio 19 (6-26); Blood Urea Nitrogen 14 mg/dL (7-20); Calcium 7.8 mg/dL (8.6-10.8); Carbon Dioxide 20 mEq/L (19-29); Chloride 111 mEq/L (98-109); Glucose 108 mg/dL (70-99); Osmolality,Calculated 287 (280-300); Potassium 3.4 mEq/L (3.5-4.5); Sodium 138 mEq/L (136-145); eGFR For African Americans > 60 (> 60); eGFR For Non-African Americans > 60 (> 60)
[2016-12-05] MEDS ORDERED: Magnesium Sulfate 2 GM in D5% in Water 100 ML IVPB ONE (07:40)
[2016-12-05] MEDS: Magnesium Oxide 400 MG TABLET PO SCH ×2 (09:21→21:20)
[2016-12-05] MEDS: Aspirin Enteric Coated 81 MG Tablet PO SCH (09:21)
[2016-12-05] MEDS: Diltiazem CD (24hr) 120 MG CAPSULE PO SCH (09:21)
[2016-12-05] MEDS: Diphenoxylate/Atropine 1 TAB TABLET PO PRN (09:28)
--- NOTE | 2016-12-05 13:59 | Palliative - Consult Note ---
<Gera Macias - Last Filed: 12/05/16 14:16> Date of Encounter: 12/05/16 Time of Encounter: 13:51 - Assessment and Plan (1) Goals of care, counseling/discussion Current Visit: Yes Status: Acute Assessment and plan: Discussed with patient goals of her healthcare and patient clearly states that she would like all measures taken to keep her alive. She also believes the chemo continues to work for her and she is able to tolerate it. Patient currently remains Full Status. She requests to have her to be medical Power of Client Support Administrator. Patient would like to be discharged today with home health. (2) Enteritis Current Visit: Yes Status: Acute Assessment and plan: per medical team management (3) Nausea & vomiting Current Visit: Yes Status: Acute Assessment and plan: per medical team management Qualifiers: Vomiting type: cyclical vomiting Vomiting Intractability: non-intractable Qualified Code(s): G43.A0 - Cyclical vomiting, not intractable (4) Atrial fibrillation Current Visit: Yes Status: Chronic Assessment and plan: per medical team management Qualifiers: Atrial fibrillation type: chronic Qualified Code(s): I48.2 - Chronic atrial fibrillation Palliative-CN HPI - Data of Consult Patient: new to practice Consult date: 12/05/16 Requesting Physician: Nina Crow MD Primary Care Provider: Rene Jacob Jr, MD - Consult Narrative Palliative Care/Comfort Measures: Hospice care Reason for consult: Code Status and hospice care discussion History of present illness: Ms. Workman is a 76 year old female admitted due to enteritis, nausea, and vomiting with a hx of pancreatic cancer currently on chemo, arthritis, afib, diabetes controlled, GERD, HLD, HTN, and thyroid disease. Patient states that she is able to tolerate chemo and would like to continue chemo because she wants to do whatever it takes to live. Patient discussed her understanding of what full code status meant in case of cardiac and pulmonary arrest. She requests to remain Full Code. Patient reports feeling better and reduced amount of pain with moderate discomfort with her nausea and vomiting. Patients was present during 1st part of encounter, and requested that he becomes medical power of title attorney in case she is no longer capable of making health decisions for herself. CC: Nina Crow MD Past Med Surg Social Fam HX - Past Medical History Medical history: arthritis, atrial fibrillation, cancer, diabetes, GERD, hyperlipidemia, hypertension, myocardial infarction, thyroid disease Psychiatric history: no psych history - Past Surgical History Surgical History: hysterectomy (Total), other (Nephrectomy of right kidney, Thyroid nodule removal) - Social History Smoking Status: Never smoker Smokeless Tobacco Status: No Alcohol use: none Drug use: none - Family History Father Race: Family Member Ethnicity: Non- Living Status: Age at : 66 Cause of : Blood clot following surgery Hx Family Endocrine Disorder: Yes (DM) Mother Race: Family Member Ethnicity: Non- Living Status: Age at : 84 Hx Family Cardiac Disorders: Yes (Heart murmur) Hx Family Neurologic Disorders: Yes (Alzheimer's disease) Brother Race: Family Member Ethnicity: Non- Living Status: Still Living Hx Family Cardiac Disorders: Yes (CAD, pacemaker) Sister Race: Family Member Ethnicity: Non- Living Status: Age at : 66 Cause of : Ovarian cancer Hx Family Cancer: Yes (Ovarian) Medications and Allergies Aspirin Enteric Coated [Aspirin EC] 81 mg PO DAILY 07/15/15 [History] Levothyroxine [Synthroid] 100 mcg PO DAILY 07/15/15 [History] Diltiazem CD (24hr) [Cardizem CD] 120 mg PO DAILY 10/30/16 [History] Insulin ASPART [Novolog Flexpen] 0 unit SQ TIDWM PRN 10/30/16 [History] Magic Mouthwash [Magic Mouthwash BLM] 10 ml PO QID PRN #240 ml 10/30/16 [Rx] Metoprolol Succinate 200 mg PO DAILY 10/30/16 [History] Ondansetron [Zofran] 4 mg PO Q8HR #90 tablet 10/30/16 [Rx] Prochlorperazine Maleate [Compazine] 10 mg PO Q8HR PRN #90 tablet 10/30/16 [Rx] Omeprazole 20 mg PO BID #60 tablet. 10/31/16 [Rx] Diphenoxylate/Atropine [Lomotil 2.5 mg/0.025 mg] 1 each PO TID PRN #90 tablet [Rx] HydrOXYzine 10 mg PO TID #30 tablet 11/02/16 [Rx] Furosemide [Lasix] 20 mg PO DAILY PRN #30 tablet 11/16/16 [Rx] OxyCODONE Immed Rel [Roxicodone 5 MG] 5 mg PO DAILY PRN #30 tablet 11/16/16 [Rx] Lipase/Protease/Amylase [Creon Dr 24,000 Units Capsule] 1 each PO TID 11/21/16 [ History] 3 Allergy/AdvReac Type Severity Reaction Status Date / Time duloxetine Allergy Intermediate Nausea Verified 11/28/16 11:08 Palliative Care-Exam - Constitutional Vitals: Temp Pulse Resp BP Pulse Ox 98.2 F 86 20 121/74 99 12/05/16 10:48 12/05/16 10:48 12/05/16 10:48 12/05/16 10:48 12/05/16 10:48 General appearance: Present: mild distress, obese - Head Additional comments: no hair on head - Respiratory Respiratory exam: Present: CTAB (difficult to hear lung sounds due to body habitus) - Cardiovascular Additional comments: difficult to hear heart sounds due to body habitus Internal Medicine - CN: Reslt - Labs CBC & Chem 7: 12/05/16 03:40 12/05/16 03:40 Labs: Short CBC 12/05/16 Range/Units 03:40 WBC 20.7 H (4.3-11.1) K/mcL Hgb 8.8 L (11.5-15.4) g/dL Hct 27.4 L (35.3-44.9) % Plt Count 384 (140-400) K/mcL Neutrophils # 9.1 H (1.6-8.9) K/mcL BMP 12/05/16 03:40 Sodium 138 Potassium 3.4 L Chloride 111 H Carbon Dioxide 20 BUN 14 Creatinine 0.72 Glucose 108 H Calcium 7.8 L - ABG Interpretation ABG results: PT/INR, D-dimer PT 16.0 Seconds (9.4-12.1) H 11/29/16 04:50 Consult Discharge Plan - Plan Referrals: Rene Jacob Jr, MD [Primary Care Provider] - 12/12/16 11:00 am (Please follow up with your primary care provider) Palliative Quality Palliative Quality: Screen for Code Status: Yes, Screen for Goals of Care: Yes, Screen for Pain: Yes, If Pain Regimen Started, Initiate Bowel Regimen: NA, Screen for Nausea/Vomitting: Yes Code Status: Full Code <Jaxson Cowart - Last Filed: 12/05/16 14:22> Date of Encounter: 12/05/16 Palliative-CN HPI - Data of Consult Requesting Physician: Nina Corw MD Primary Care Provider: Rene Jacob Jr, MD - Consult Narrative History of present illness: Ms. Workman is a 76 year old female CC: Nina Crow MD Palliative Care-Exam - Constitutional Vitals: Temp Pulse Resp BP Pulse Ox 98.2 F 86 20 121/74 99 12/05/16 10:48 12/05/16 10:48 12/05/16 10:48 12/05/16 10:48 12/05/16 10:48 Internal Medicine - CN: Reslt - Labs CBC & Chem 7: 12/05/16 03:40 12/05/16 03:40 Labs: Short CBC 12/05/16 Range/Units 03:40 WBC 20.7 H (4.3-11.1) K/mcL Hgb 8.8 L (11.5-15.4) g/dL Hct 27.4 L (35.3-44.9) % Plt Count 384 (140-400) K/mcL Neutrophils # 9.1 H (1.6-8.9) K/mcL BMP 12/05/16 03:40 Sodium 138 Potassium 3.4 L Chloride 111 H Carbon Dioxide 20 BUN 14 Creatinine 0.72 Glucose 108 H Calcium 7.8 L - ABG Interpretation ABG results: PT/INR, D-dimer PT 16.0 Seconds (9.4-12.1) H 11/29/16 04:50 - Attending Attestation I examined this patient and my medical decision-making was reviewed with the Resident Physician. I agree with the documented findings, disposition and treatment plan as described except to the extent set forth below. Pt feels she is benifiting from her chemo and wishes to continue, she also wishes full code we will cont to follow
--- NOTE | 2016-12-05 16:19 | Internal Med Progress Note ---
<CatarinaterriHarpreet - Last Filed: 12/05/16 16:17> Date of Encounter: 12/05/16 Time of Encounter: 07:30 - Assessment and plan (1) Septic shock Current Visit: Yes Status: Acute Assessment and plan: Patient is normotensive now, not tachypnic or tachycardic. On today's CBC patient's WBC are 20.7 with 12% bands. Patient has not had an elevated white count this admission until today, but has had some elevated bands continue flagyl and zosyn for now ID was consulted to figure out Abx. Patient's urine Culture is positive for pseudomonas patient is asymptomatic. Continue to monitor. Clinically patient feels well and seems well and is eager to go home. (2) Hyponatremia Current Visit: Yes Status: Resolved Assessment and plan: Resolved. Likely multifactorial in nature. Patient's Na 138 today. Continue to monitor (3) Enteritis Current Visit: Yes Status: Acute Assessment and plan: Patient reports improvement in abd pain. -continue IV abx -See septic shock. (4) Atrial fibrillation Current Visit: Yes Status: Chronic Assessment and plan: Chronic, Stable. -Continue patient's Cardiazem and ASA Qualifiers: Atrial fibrillation type: chronic Qualified Code(s): I48.2 - Chronic atrial fibrillation (5) Diabetes Current Visit: Yes Status: Chronic Assessment and plan: Agree with plan to stop acuchecks and sliding scale and regular diet with supplements per nutrition due to patient's Cancer diagnosis. Qualifiers: Diabetes mellitus type: type 2 Diabetes mellitus complication status: without complication Diabetes mellitus chcf insulin use: without exterminator helper use Qualified Code(s): E11.9 - Type 2 diabetes mellitus without complications (6) HTN (hypertension) Current Visit: Yes Status: Chronic Assessment and plan: Patient has been normotensive off pressors since transferred to the floor. Continue to monitor continue to hold patient's metoprolol. Qualifiers: Hypertension type: essential hypertension Qualified Code(s): I10 - Essential (primary) hypertension (7) Thyroid disease Current Visit: Yes Status: Chronic Assessment and plan: Hx of Thyroid dz with removal of nodules from thyroid. continue home Synthroid. (8) ANTHONY (acute kidney injury) Current Visit: Yes Status: Resolved Assessment and plan: Resolved Cr. 1.22 on 11/30. Likely secondary to hypotension. Cr have been normal since then. Nephrology was consulted and has since signed off. Continue to monitor. (9) Pneumobilia Current Visit: Yes Status: Acute Assessment and plan: Pt has pneumobilia on CT scan on 11/28 Likely secondary to stent placement According to prior primary team note surgery was consulted however based on orders looks like this was cancelled. Do not think needs surgery consult at this time. continue to monitor. (10) Pancreatic cancer Current Visit: Yes Status: Chronic Assessment and plan: Patient has a history of pancreatic cancer Follows with Oncology Currently undergoing chemo therapy Last dose November 22. Pt to resume treatment as outpatient. Qualifiers: Pancreatic malignancy location: unspecified Qualified Code(s): C25.9 - Malignant neoplasm of pancreas, unspecified (11) Electrolyte abnormality Current Visit: Yes Status: Acute Assessment and plan: Patient has been Hypokalemic and hypomagnesic earlier during admission. K 3.4 today up from 3.2 yesterday. Will hold off on additional repletion until tomorrow. Mag was 1.2 upon check this morning. Repleted. Will continue to monitor. - Subjective Interval history: Patient reports feeling ok and wanting to go home. She denies Pain any where. She reports swelling in her legs improved. Consulted palliative to discuss goals of care. consulted ID to discuss chcf antibiotics if patient were to go home. Discussed patient's Urinary tract infection and elevated white count with patient and emphasized the need to treat this infection. Patient expressed understanding. - Constitutional Vitals: Temp Pulse Resp BP Pulse Ox 97.6 F 78 18 126/81 97 12/05/16 15:51 12/05/16 15:51 12/05/16 15:51 12/05/16 15:51 12/05/16 15:51 General appearance: Present: cooperative, A&O X 3 (frail appearing elderly female), pleasant, obese, answers questions appropriately - Head Head exam: Present: atraumatic, normocephalic Additional comments: bald - Eye Eye exam: Present: PERRL, conjuntiva pink, sclera anicteric Pupils: Present: PERRL - Neck Neck exam general surgery: Present: supple, trachea midline - Respiratory Respiratory exam: Present: CTAB. Absent: accessory muscle use, rales, rhonchi, wheezes - Cardiovascular Cardiovascular exam: Present: RRR, +S1, +S2. Absent: diastolic murmur, gallop, rubs, systolic murmur - GI/Abdominal GI/Abdominal exam: Present: normal bowel sounds, soft, no peritoneal signs. Absent: distended, tenderness - Extremities Exam Extremities exam: Present: pedal edema, warm. Absent: calf tenderness, cyanotic - Neurological Exam Neurological exam: Present: alert, oriented X3. Absent: facial droop, speech deficit - Skin Skin exam: Present: dry, intact Internal Medicine: Result - Labs CBC & Chem 7: 12/05/16 03:40 12/05/16 03:40 Labs: Short CBC 12/05/16 Range/Units 03:40 WBC 20.7 H (4.3-11.1) K/mcL Hgb 8.8 L (11.5-15.4) g/dL Hct 27.4 L (35.3-44.9) % Plt Count 384 (140-400) K/mcL Neutrophils # 9.1 H (1.6-8.9) K/mcL BMP 12/05/16 03:40 Sodium 138 Potassium 3.4 L Chloride 111 H Carbon Dioxide 20 BUN 14 Creatinine 0.72 Glucose 108 H Calcium 7.8 L - ABG Interpretation ABG results: PT/INR, D-dimer PT 16.0 Seconds (9.4-12.1) H 11/29/16 04:50 Consult Discharge Plan - Plan Referrals: Rene Jacob Jr, MD [Primary Care Provider] - 12/12/16 11:00 am (Please follow up with your primary care provider) <Matthew Valles P - Last Filed: 12/05/16 17:43> Date of Encounter: 12/05/16 - Constitutional Vitals: Temp Pulse Resp BP Pulse Ox 97.6 F 78 18 126/81 97 12/05/16 15:51 12/05/16 15:51 12/05/16 15:51 12/05/16 15:51 12/05/16 15:51 Internal Medicine: Result - Labs CBC & Chem 7: 12/05/16 03:40 12/05/16 03:40 Labs: Short CBC 12/05/16 Range/Units 03:40 WBC 20.7 H (4.3-11.1) K/mcL Hgb 8.8 L (11.5-15.4) g/dL Hct 27.4 L (35.3-44.9) % Plt Count 384 (140-400) K/mcL Neutrophils # 9.1 H (1.6-8.9) K/mcL BMP 12/05/16 03:40 Sodium 138 Potassium 3.4 L Chloride 111 H Carbon Dioxide 20 BUN 14 Creatinine 0.72 Glucose 108 H Calcium 7.8 L - ABG Interpretation ABG results: PT/INR, D-dimer PT 16.0 Seconds (9.4-12.1) H 11/29/16 04:50 - Attending Attestation I examined this patient and my medical decision-making was reviewed with the Resident Physician. I agree with the documented findings, disposition and treatment plan as described except to the extent set forth below.
[2016-12-05] MEDS: Ondansetron 4 MG/2 ML VIAL IVP PRN (17:40)
[2016-12-06 04:04] LABS: Hematocrit 28.3 % (35.3-44.9); Hemoglobin 9.2 g/dL (11.5-15.4); Mean Corpuscular HGB Conc 32.5 g/dL (31.6-35.5); Mean Corpuscular Hemoglobin 32.4 pg (28.0-33.3); Mean Corpuscular Volume 99.6 fL (83.0-100.0); Mean Platelet Volume 9.2 fL (9.4-12.4); Nucleated Red Blood Cells 0.4 /100 WBC (0); Platelet Count 344 K/mcL (140-400); Red Blood Count 2.84 M/mcL (3.82-4.97); Red Cell Distribution Width 16.2 % (11.5-14.5)
[2016-12-06 04:20] LABS: BUN/Creatinine Ratio 14 (6-26); Blood Urea Nitrogen 10 mg/dL (7-20); Calcium 7.9 mg/dL (8.6-10.8); Carbon Dioxide 21 mEq/L (19-29); Chloride 109 mEq/L (98-109); Glucose 111 mg/dL (70-99); Magnesium 1.5 mg/dL (1.6-2.6); Osmolality,Calculated 284 (280-300); Potassium 3.3 mEq/L (3.5-4.5); Sodium 137 mEq/L (136-145); eGFR For African Americans > 60 (> 60); eGFR For Non-African Americans > 60 (> 60)
[2016-12-06 04:36] LABS: Eosinophils # 0.8 K/mcL (0.0-0.6); Lymphocytes # 4.3 K/mcL (0.6-4.6); Neutrophils # 10.5 K/mcL (1.6-8.9); Platelet Estimate Normal (Normal)
[2016-12-06] MEDS: *HR* Heparin 5,000 UNIT/ML VIAL SQ SCH (06:15)
[2016-12-06] MEDS: *HR* OxyCODONE Immed Rel 5 MG TABLET PO SCH (07:32)
--- NOTE | 2016-12-06 08:23 | Infectious Disease Consult ---
Date of Encounter: 12/05/16 Time of Encounter: 15:30 Assessment and Plan (1) Septic shock Status: Acute Assessment and plan: The patient had two sepsis criteria on admission and developed hypotension requiring the use of IV vasopressors shortly after. Likely secondary to neutropenic enterocolitis and UTI. Improved. The patient has been afebrile. Hypotension has resolved. The patient' s neutopenia has resolved, but she now has leukocytosis (likely secondary to steroids) and continues to have bandemia. Blood culture drawn 11/28/16 x 1 set is negative. (2) Enterocolitis Status: Acute Assessment and plan: Likely neutropenic enterocolitis secondary to recent chemotherapy. CT scan of the abdomen and pelvis 11/28/16 showed no significant interval change in pancreatic neoplasm, peripancreatic stranding, and peripancreatic and retroperitoneal adenopathy since 11/26/2016.A few of the retroperitoneal lymph nodes have slightly increased in size since 10/22/2016. It also showed pneumobilia with common bile duct stent placement. There was a new small amount of gas within the gallbladder, also likely related to stent placement. Additionally, mildly dilated loops of small bowel within the proximal jejunum in the left mid abdomen with mild perienteric stranding. No discrete transition point was identified. Findings favored an ileus related to enteritis than small bowel obstruction. Clinically, the patient is improved. She continues to have leukocytosis with bandemia, but the patient did receive 4 days of steroids. The patient has been on treatment since 11/28/16 (day 8). Continue Zosyn 3.375 grams IV Q8H. Discontinue flagyl. Duration of treatment depends on the clinical picture, but likely 14 days. We will likely be able to transition the patient to oral antibiotics when ready for discharge. Monitor renal function and dose-adjust antibiotics. (3) UTI (urinary tract infection) Status: Acute Assessment and plan: Causative organism Pseudomonas aeruginosa, resistant to fluoroquinolones. Currently on day 7 of Zosyn. The patient has been treated adequately for the UTI, but will need to continue antibiotic therapy for her enteritis. Qualifiers: Urinary tract infection type: acute cystitis Hematuria presence: without hematuria Qualified Code(s): N30.00 - Acute cystitis without hematuria (4) Pneumobilia Status: Acute Assessment and plan: Noted on CT scan on admission. Likely secondary to recent biliary stent placement. GI consulted --> no further intervention required. (5) Hyponatremia Status: Resolved (6) Nausea & vomiting Status: Acute Qualifiers: Vomiting type: cyclical vomiting Vomiting Intractability: non-intractable Qualified Code(s): G43.A0 - Cyclical vomiting, not intractable (7) Atrial fibrillation Status: Chronic Qualifiers: Atrial fibrillation type: chronic Qualified Code(s): I48.2 - Chronic atrial fibrillation (8) Diabetes Status: Chronic Qualifiers: Diabetes mellitus type: type 2 Diabetes mellitus complication status: without complication Diabetes mellitus fci insulin use: without fci use Qualified Code(s): E11.9 - Type 2 diabetes mellitus without complications (9) Thyroid disease Status: Chronic (10) Pancreatic cancer Status: Chronic Assessment and plan: Diagnosed in July 2016. Follows with the [facility] - Dr. Enriquez. Currently on Gemcitibine/Abraxane chemo weekly x 3 weeks with 28 day cycle. Last chemo treatment 11/22/16. Recommend Hem/Onc consult for further recommendations. Qualifiers: Pancreatic malignancy location: unspecified Qualified Code(s): C25.9 - Malignant neoplasm of pancreas, unspecified Infectious Disease HPI - Data of Consult Patient: new to practice Consult date: 12/05/16 Requesting Physician: Nina Crow MD Primary Care Provider: Rene Jacob Jr, MD - Consult Narrative Reason for consult: Pseudomonas UTI History of present illness: Ms. Workman is a 76 year old female medical history of pancreatic cancer currently undergoing IV chemotherapy with last dose November 22, arthritis, A. fib, diabetes, hypertension, and thyroid disease. She was noted to the hospital November 28 for neutropenic fever and enteritis. We are consulted December 05 for pseudomonas UTI. The patient is a 76-year-old female with past medical history as stated above. The patient presented to the emergency department on the day of admission with complaints of fever 101, no pain, nausea, and vomiting. Upon arrival, she was afebrile and hemodynamically stable. Her white blood cell count was 2.5 with 6% bands. Basic metabolic panel significant for odium level of 126. The patient had a CT the abdomen and pelvis that showed an unchanged pancreatic neoplasm, pneumobilia, and ileus related to enteritis. Blood cultures were obtained 1 set as well as a urinalysis with culture. The patient started on Cipro and Flagyl. She was admitted to the hospital for further evaluation and treatment. After admission, the patient became hypotensive and required a short course of IV vasopressors. She was transferred to the ICU for further monitoring. Antibiotics were switched to Zosyn and Flagyl. She was started on stress dose hydrocortisone. Allergy was consulted to assist with her hyponatremia. Differential was checked and was negative. I was consulted for recommendations regarding the pneumobilia, but this was felt to be likely related to her recent biliary stent placement and no further intervention was deemed to be needed. Since admission, the patient's white blood cell count improved and is now elevated at 20,000. She continues to have bandemia. Hyponatremia has resolved. Culture obtained in the emergency department grew out Pseudomonas, resistant to 4 quinolones. Blood culture obtained in the emergency department is -1 out of 1 set. Currently, the patient is on IV Zosyn and Flagyl. We've been asked to evaluate and make further recommendations. My exam today, patient sitting up in bed with her at the bedside. She states prior to admission she had a one-day history of nausea, vomiting, severe generalized weakness, and fever. She complained lower abdominal pain that radiated around to her back bilaterally. Reported chills and rigors with her fever. She denied any headache or neck pain. She denied any congestion, earache , or sore throat. She denied any chest pain, shortness of breath, or cough. She states she was severely nauseated and was having vomiting to the point where she was unable to keep any liquids or her medications down. She was also having 3 diarrhea stools per day. She was having some mild dysuria. She denied any pain extremities, oral thrush, or skin lesions. CC: Nina Crow MD Past Med Surg Social Fam HX - Past Medical History Attestation: Yes The following information was validated with the patient. Source: patient, old records reviewed, nursing notes reviewed Medical history: arthritis, atrial fibrillation, cancer (Pancreatic cancer - dx' d September 2016, currently on chemotharapy), diabetes, GERD, hyperlipidemia, hypertension, myocardial infarction, thyroid disease Psychiatric history: no psych history - Past Surgical History Surgical History: hysterectomy (Total), other (Nephrectomy of right kidney, Thyroid nodule removal) - Social History Smoking Status: Never smoker Smokeless Tobacco Status: No Alcohol use: none Drug use: none Occupational status: retired Current living situation: Home - Independent Activity Level: Independent ambulation Recent Out of Country Travel Within the Last 8 Weeks: No Exposure or Possible Exposure to Illness During Travel: No - Family History Father Race: Family Member Ethnicity: Non- Living Status: Age at : 66 Cause of : Blood clot following surgery Hx Family Endocrine Disorder: Yes (DM) Mother Race: Family Member Ethnicity: Non- Living Status: Age at : 84 Hx Family Cardiac Disorders: Yes (Heart murmur) Hx Family Neurologic Disorders: Yes (Alzheimer's disease) Brother Race: Family Member Ethnicity: Non- Living Status: Still Living Hx Family Cardiac Disorders: Yes (CAD, pacemaker) Sister Race: Family Member Ethnicity: Non- Living Status: Age at : 66 Cause of : Ovarian cancer Hx Family Cancer: Yes (Ovarian) Infectious Disease-CN:Meds Aspirin Enteric Coated [Aspirin EC] 81 mg PO DAILY 07/15/15 [History] Levothyroxine [Synthroid] 100 mcg PO DAILY 07/15/15 [History] Diltiazem CD (24hr) [Cardizem CD] 120 mg PO DAILY 10/30/16 [History] Insulin ASPART [Novolog Flexpen] 0 unit SQ TIDWM PRN 10/30/16 [History] Magic Mouthwash [Magic Mouthwash BLM] 10 ml PO QID PRN #240 ml 10/30/16 [Rx] Metoprolol Succinate 200 mg PO DAILY 10/30/16 [History] Ondansetron [Zofran] 4 mg PO Q8HR #90 tablet 10/30/16 [Rx] Prochlorperazine Maleate [Compazine] 10 mg PO Q8HR PRN #90 tablet 10/30/16 [Rx] Omeprazole 20 mg PO BID #60 tablet.dr 10/31/16 [Rx] Diphenoxylate/Atropine [Lomotil 2.5 mg/0.025 mg] 1 each PO TID PRN #90 tablet [Rx] HydrOXYzine 10 mg PO TID #30 tablet 11/02/16 [Rx] Furosemide [Lasix] 20 mg PO DAILY PRN #30 tablet 11/16/16 [Rx] OxyCODONE Immed Rel [Roxicodone 5 MG] 5 mg PO DAILY PRN #30 tablet 11/16/16 [Rx] Lipase/Protease/Amylase [Jodi Goff 24,000 Units Capsule] 1 each PO TID 11/21/16 [ History] 3 Allergy/AdvReac Type Severity Reaction Status Date / Time duloxetine Allergy Intermediate Nausea Verified 11/28/16 11:08 All systems: reviewed and no additional remarkable complaints except as stated Exam - Constitutional Vitals: Temp Pulse Resp BP Pulse Ox 97.7 F 82 19 118/68 96 12/06/16 03:37 12/06/16 03:37 12/06/16 03:37 12/06/16 03:37 12/06/16 03:37 General appearance: average body habitus, cooperative, no acute distress - Head Head exam: Present: atraumatic, normal inspection, normocephalic - Eye Eye exam: Present: EOMI, normal appearance, PERRL Pupils: Present: normal accommodation - ENT ENT exam: Present: mucous membranes moist - Neck Neck exam: Present: normal inspection - Respiratory Respiratory exam: Present: CTAB. Absent: rales, respiratory distress, rhonchi, wheezes - Cardiovascular Cardiovascular exam: Present: irregular rhythm. Absent: tachycardia - GI/Abdominal GI/Abdominal exam: Present: normal bowel sounds, soft. Absent: distended, tenderness - Extremities Exam Extremities exam: Present: pedal edema (1+ BLE). Absent: joint swelling, tenderness - Back Exam Back exam: Present: normal inspection. Absent: paraspinal tenderness, vertebral tenderness - Neurological Exam Neurological exam: Present: alert, oriented X3, no focal deficits - Psychiatric Psychiatric exam: Present: normal affect, normal mood - Skin Skin exam: Present: dry, intact, normal color, warm Infectious Disease CN: Results - Labs CBC & Chem 7: 12/06/16 03:50 12/06/16 03:50 Cultures: Cultures 11/28/16 16:18 Blood Culture - Final Peripheral Venipuncture No growth. 11/28/16 20:00 Urine Culture - Final Urine,Clean Catch Pseudomonas aeruginosa Serology: Serology 11/29/16 11/29/16 11/29/16 Range/Units 22:30 22:30 22:00 Urine Color (Yellow) Urine Clarity (Clear) Urine pH (5.0-8.0) pH Units Ur Specific [place] (1.010-1.025) Urine Protein (Neg-Trace) mg/dL Urine Glucose (UA) (Normal) mg/dL Urine Ketones (Negative) mg/dL Urine Blood (Negative) Urine Nitrite (Negative) Urine Bilirubin (Negative) Urine Urobilinogen (Normal) mg/dL Ur Leukocyte Esterase (Negative) Urine Microscopic RBC (0-3) per hpf Urine Microscopic WBC (0-3) per hpf Ur Squamous Epith Cells (None-Few) per lpf Urine Bacteria (None-Few) per hpf Hyaline Casts (None-Few) per lpf Ur Culture Indicated? (NO) Urine Osmolality 386 (300-1090) mOsm/kg Urine Creatinine 82 mg/dL Protein/Creatinin Ratio 0.38 H (0-0.20) mg/mg Urine Sodium 38.0 mEq/L Urine Potassium 30.1 mEq/L Urine Total Protein 31 H (1-14) mg/dL Stl C. diff Tox B Gene (Negative) 11/29/16 11/28/16 Range/Units 09:21 20:00 Urine Color Yellow (Yellow) Urine Clarity Cloudy A (Clear) Urine pH 7.0 (5.0-8.0) pH Units Ur Specific [place] 1.015 (1.010-1.025) Urine Protein Negative (Neg-Trace) mg/dL Urine Glucose (UA) Normal (Normal) mg/dL Urine Ketones Negative (Negative) mg/dL Urine Blood Negative (Negative) Urine Nitrite Positive A (Negative) Urine Bilirubin Negative (Negative) Urine Urobilinogen Normal (Normal) mg/dL Ur Leukocyte Esterase Negative (Negative) Urine Microscopic RBC 0-3 (0-3) per hpf Urine Microscopic WBC 3-5 H (0-3) per hpf Ur Squamous Epith Cells Many H (None-Few) per lpf Urine Bacteria Many H (None-Few) per hpf Hyaline Casts None Seen (None-Few) per lpf Ur Culture Indicated? YES A (NO) Urine Osmolality (300-1090) mOsm/kg Urine Creatinine mg/dL Protein/Creatinin Ratio (0-0.20) mg/mg Urine Sodium mEq/L Urine Potassium mEq/L Urine Total Protein (1-14) mg/dL Stl C. diff Tox B Gene Negative (Negative) Consult Discharge Plan - Plan Referrals: Rene Jacob Jr, MD [Primary Care Provider] - 12/12/16 11:00 am (Please follow up with your primary care provider)
--- NOTE | 2016-12-06 08:43 | Event Note ---
Date of Encounter: 12/06/16 Time of Encounter: 08:40 Patient awake and alert, no complaints. F/u from Dr. Cowart's conversation yesterday and pt will no other concerns. SW will be getting DPOA in place. Palliative not currently managing any symptoms and will sign off. Please call if needed.
[2016-12-06] MEDS: Piperacillin/Tazobactam 3.375 GM in 0.9 % Sodium Chloride Mini Bag 100 ML IVPB SCH (09:05)
[2016-12-06] MEDS: Diltiazem CD (24hr) 120 MG CAPSULE PO SCH (09:07)
[2016-12-06] MEDS: Aspirin Enteric Coated 81 MG Tablet PO SCH (09:07)
[2016-12-06] MEDS: Magnesium Oxide 400 MG TABLET PO SCH (09:07)
[2016-12-06] MEDS: MetroNIDAZOLE 500 MG/100 ML 500 MG/100 ML BAG IVPB SCH (09:09)
--- NOTE | 2016-12-06 09:40 | Discharge Summary ---
<Harpreet Sánchez - Last Filed: 12/06/16 13:29> Date of Encounter: 12/06/16 Time of Encounter: 09:38 - Discharge Diagnosis (1) Septic shock Priority: Primary Status: Acute (2) Hyponatremia Priority: Secondary Status: Resolved (3) Enteritis Priority: Secondary Status: Acute (4) Atrial fibrillation Priority: Secondary Status: Chronic Qualifiers: Atrial fibrillation type: chronic Qualified Code(s): I48.2 - Chronic atrial fibrillation (5) Diabetes Priority: Secondary Status: Chronic Qualifiers: Diabetes mellitus type: type 2 Diabetes mellitus complication status: without complication Diabetes mellitus assisted insulin use: without intermediate frame tender use Qualified Code(s): E11.9 - Type 2 diabetes mellitus without complications (6) HTN (hypertension) Priority: Secondary Status: Chronic Qualifiers: Hypertension type: essential hypertension Qualified Code(s): I10 - Essential (primary) hypertension (7) Thyroid disease Priority: Secondary Status: Chronic (8) ANTHONY (acute kidney injury) Priority: Secondary Status: Resolved (9) Pneumobilia Priority: Secondary Status: Acute (10) Pancreatic cancer Priority: Secondary Status: Chronic Qualifiers: Pancreatic malignancy location: unspecified Qualified Code(s): C25.9 - Malignant neoplasm of pancreas, unspecified (11) Electrolyte abnormality Priority: Secondary Status: Acute (12) Severe protein-calorie malnutrition Priority: Secondary Status: Acute - Discharge Medications Prescriptions: Ciprofloxacin [Cipro] 500 mg PO BID #15 tablet Magnesium Oxide [Mag-Ox] 400 mg PO DAILY #30 tablet metroNIDAZOLE [Flagyl] 500 mg PO TID #23 tablet Potassium Chloride 10 meq PO DAILY #30 tab.er.prt Home Medications: Aspirin Enteric Coated [Aspirin EC] 81 mg PO DAILY 07/15/15 [History] Levothyroxine [Synthroid] 100 mcg PO DAILY 07/15/15 [History] Diltiazem CD (24hr) [Cardizem CD] 120 mg PO DAILY 10/30/16 [History] Insulin ASPART [Novolog Flexpen] 0 unit SQ TIDWM PRN 10/30/16 [History] Magic Mouthwash [Magic Mouthwash BLM] 10 ml PO QID PRN #240 ml 10/30/16 [Rx] Metoprolol Succinate 200 mg PO DAILY 10/30/16 [History] Ondansetron [Zofran] 4 mg PO Q8HR #90 tablet 10/30/16 [Rx] Prochlorperazine Maleate [Compazine] 10 mg PO Q8HR PRN #90 tablet 10/30/16 [Rx] Omeprazole 20 mg PO BID #60 tablet. 10/31/16 [Rx] Diphenoxylate/Atropine [Lomotil 2.5 mg/0.025 mg] 1 each PO TID PRN #90 tablet [Rx] HydrOXYzine 10 mg PO TID #30 tablet 11/02/16 [Rx] Furosemide [Lasix] 20 mg PO DAILY PRN #30 tablet 11/16/16 [Rx] OxyCODONE Immed Rel [Roxicodone 5 MG] 5 mg PO DAILY PRN #30 tablet 11/16/16 [Rx] Lipase/Protease/Amylase [Jodi Goff 24,000 Units Capsule] 1 each PO TID 11/21/16 [ History] Ciprofloxacin [Cipro] 500 mg PO BID #15 tablet 12/06/16 [Rx] Magnesium Oxide [Mag-Ox] 400 mg PO DAILY #30 tablet 12/06/16 [Rx] Potassium Chloride 10 meq PO DAILY #30 tab.er.prt 12/06/16 [Rx] metroNIDAZOLE [Flagyl] 500 mg PO TID #23 tablet 12/06/16 [Rx] Allergies/Adverse Reactions: 3 Allergy/AdvReac Type Severity Reaction Status Date / Time duloxetine Allergy Intermediate Nausea Verified 11/28/16 11:08 Procedures/tests Complete & Pending: CT Abd/pelvis: "FINDINGS: Lower Chest: There is a stable 2 mm, noncalcified nodule in the right lower lobe in the medial basal segment. Previously noted 3 mm ground-glass nodule in the lateral basal segment of the right lower lobe is not seen on today's study. There is patchy opacity in the medial right middle lobe, unchanged. Organs: There is pneumobilia with common bile duct stent in place. Gas is also noted within the gallbladder which is likely postprocedural. The unenhanced liver, spleen and adrenal glands are otherwise without focal abnormality. Pancreatic head/uncinate mass is again identified and measures approximately 2.4 x 1.5 cm, but is otherwise difficult to truly evaluate given lack of intravenous contrast. There is upstream pancreatic duct dilation and atrophy. Stranding in the peripancreatic soft tissues of the pancreatic head is again noted. There is a 1.8 x 1.1 cm peripancreatic/portacaval lymph node which demonstrated central hypoenhancement on the prior CT, similar to that of the pancreatic mass, suspicious for metastatic disease. Status post right nephrectomy. Left parapelvic cysts are noted. No hydronephrosis or perinephric stranding. No left renal calculus. GI/Bowel: Enteric contrast is noted within the colon from earlier CT scan. Scattered colonic diverticula without acute diverticulitis. The appendix is normal. There are a few mildly dilated loops of small bowel in the left mid abdomen involving the proximal jejunum measuring up to 3.1 cm with mild perienteric stranding, new since the prior exam. No discrete transition point is identified. No extraluminal contrast or free air. There is also mild dilation of the second portion of the duodenum. Pelvis: Excreted contrast material is noted within the bladder. There are a few foci of gas within the bladder which may be related to recent Bernstein placement or instrumentation. No pelvic adenopathy or significant free fluid. Peritoneum/Retroperitoneum: The aorta is normal in caliber with mild atherosclerosis. There are several other prominent retroperitoneal lymph nodes, the largest measuring up to 1.0 cm in the aortocaval region, which are stable from 11/26/2016, but appear slightly increased in size since 10/22/2016. Mild mesenteric edema and stranding are not significantly changed from 11/26/2016. No drainable fluid collection. Bones/Soft Tissues: Stable probable hemangioma in the right iliac bone. No other acute osseous abnormality. CT/CT abd pelvis wo no iv no oral IMPRESSION: 1. No significant interval change in pancreatic neoplasm, peripancreatic stranding, and peripancreatic and retroperitoneal adenopathy since 11/26/2016. A few of the retroperitoneal lymph nodes have slightly increased in size since 10/22/2016. 2. Pneumobilia with common bile duct stent placement. There is a new small amount of gas within the gallbladder, also likely related to stent placement. 3. Mildly dilated loops of small bowel within the proximal jejunum in the left mid abdomen with mild perienteric stranding. No discrete transition point is identified. Findings favor an ileus related to enteritis than small bowel obstruction." Date of admission: 11/28/16 16:08 Primary care physician: Rene Jacob Jr, MD Consults: 11/29/16 12:34 Consult to Physical Therapy [CONS] Routine Comment: Evaluate, develop and implement POC Reason for Consult: Weakness OT [Consult to Occupational Therapy] [CONS] Routine Comment: Evaluate, develop and implement POC Reason for Consult: weakness 11/30/16 09:38 Consult to Critical Care [CONS] Routine Consulting Provider: [facility] [place] Reason for Consult: septic shock Call Completed: Yes 12/04/16 11:07 Consult to Gas Controller [CONS] Routine Reason for SW Consult: needs ecf 12/05/16 10:37 Consult to Palliative Care [CONS] Routine Comment: Consulting Provider: [facility] [place] Reason for Consult: Patient has dx of Pancreatic CA on Chemortherapy. Discusion of goals of care. Call Completed: Yes 12/06/16 08:05 Consult to Infectious Diseases [CONS] Routine Consulting Provider: Infectious [facility] [place] Reason for Consult: You saw the patient yesterday in consult for intermediate frame tender antibiotics I just forgot to put in the official consult order. Sorry about that. Call Completed: Yes Discharging clinician: Harpreet Sánchez Anticipated date of discharge: 12/06/16 - Patient Status Disposition: Home, Self-Care Condition: Fair Functional capacity at discharge: independent ambulation Overall status at discharge: patient is progressing back to baseline - Discharge Instructions Instructions: Ciprofloxacin (By mouth), Metronidazole (By mouth), Atrial Fibrillation (DC) Follow Up With: Rene Jacob Jr, MD [Primary Care Provider] - 12/12/16 11:00 am (Please follow up with your primary care provider) Additional Instructions: Please follow up with your primary care provider within 1 week of discharge. Please follow up with your oncologist. Please resume your home medications as prescribed. Please take your new medications as prescribed: Please take you antibiotics for the next 7 days as prescribed. Please fill your antibioitc prescriptions todaya nd take two doses of the flagyl and one dose of Cipro today before starting the prescribed orders of Cipro twice a day and flagyl three times a day. Please take your potassium and magnesium until you see your primary care provider. Please return to the hospital if you experience any new or worsening symptoms. - Diet and Activity Activity: resume usual activities as tolerated Diet: advance to your usual diet Interval History: Patient reports feeling fine and being eager to go home. After discussions with ID patient was able to be discharge on oral medications to treat her Enteritis. Her WBC is going down and she no longer has any bands. She is clinically stable and afebrile. Hospital course: Ms. Workman is a 76 year old female with medical history of pnacreatic Cancer, arthritis, atrial fibrillation, diabetes, GERD, HLD, HTN, and thyroid disease presented to the hospital complaining of Abdominal pain, L flank pain, Nausea, vomiting, fever, and increased weakness. She was admitted and diagnosed with enteritis on CT scan. She was also found to be hyponatremic. Her Na as well as K and Magnesium were repleted during this admission. Patient went into septic shock during admission and required pressor support and transfer to the ICU. Patient improved and was able to be weaned off pressors and has been hemodynamically stable since. She was transitioned back to the floor and was discharged home on oral antibiotics to finish a 14 day course for her enteritis. - Time Spent with Patient Total time spent providing and/or coordinating discharge services:40 minutes - Constitutional Vitals: Temp Pulse Resp BP Pulse Ox 97.9 F 98 18 115/77 98 12/06/16 08:33 12/06/16 08:33 12/06/16 08:33 12/06/16 08:33 12/06/16 08:33 General appearance: Present: cooperative, A&O X 3 (frail appearing elderly female), pleasant, obese, answers questions appropriately - Head Head exam: Present: atraumatic, normocephalic Additional comments: bald - Eye Eye exam: Present: PERRL, conjuntiva pink, sclera anicteric Pupils: Present: PERRL - Neck Neck exam general surgery: Present: supple, trachea midline - Respiratory Respiratory exam: Present: CTAB. Absent: accessory muscle use, rales, rhonchi, wheezes - Cardiovascular Cardiovascular exam: Present: RRR, +S1, +S2. Absent: diastolic murmur, gallop, rubs, systolic murmur - GI/Abdominal GI/Abdominal exam: Present: normal bowel sounds, soft, no peritoneal signs. Absent: distended, tenderness - Extremities Exam Extremities exam: Present: pedal edema, warm. Absent: calf tenderness, cyanotic - Neurological Exam Neurological exam: Present: alert, oriented X3, no focal deficits. Absent: facial droop, speech deficit - Skin Skin exam: Present: dry, intact <Reena,Matthew P - Last Filed: 12/06/16 18:04> Date of Encounter: 12/06/16 Date of admission: 11/28/16 16:08 Primary care physician: Rene Jacob Jr, MD Consults: 11/29/16 12:34 Consult to Physical Therapy [CONS] Routine Comment: Evaluate, develop and implement POC Reason for Consult: Weakness OT [Consult to Occupational Therapy] [CONS] Routine Comment: Evaluate, develop and implement POC Reason for Consult: weakness 11/30/16 09:38 Consult to Critical Care [CONS] Routine Consulting Provider: [facility] [place] Reason for Consult: septic shock Call Completed: Yes 12/04/16 11:07 Consult to Gas Controller [CONS] Routine Reason for SW Consult: needs ecf 12/05/16 10:37 Consult to Palliative Care [CONS] Routine Comment: Consulting Provider: [facility] [place] Reason for Consult: Patient has dx of Pancreatic CA on Chemortherapy. Discusion of goals of care. Call Completed: Yes 12/06/16 08:05 Consult to Infectious Diseases [CONS] Routine Consulting Provider: Infectious [facility] [place] Reason for Consult: You saw the patient yesterday in consult for intermediate frame tender antibiotics I just forgot to put in the official consult order. Sorry about that. Call Completed: Yes Hospital course: Ms. Workman is a 76 year old female - Time Spent with Patient Total time spent providing and/or coordinating discharge services: - Constitutional Vitals: Temp Pulse Resp BP Pulse Ox 98.2 F 82 16 121/75 99 12/06/16 11:39 12/06/16 11:39 12/06/16 11:39 12/06/16 11:39 12/06/16 11:39 - Attending Attestation I examined this patient and my medical decision-making was reviewed with the Resident Physician. I agree with the documented findings, disposition and treatment plan as described except to the extent set forth below.
[2016-12-06] MEDS: Diphenoxylate/Atropine 1 TAB TABLET PO PRN (10:33)
[2016-12-06] MEDS: Ondansetron 4 MG/2 ML VIAL IVP PRN (10:38)
[2016-12-06 11:43] VITALS: BP 121/75
--- NOTE | 2016-12-06 14:13 | Infectious Disease Progress No ---
Date of Encounter: 12/06/16 Time of Encounter: 14:10 - Assessment and Plan (1) Septic shock Current Visit: Yes Status: Acute The patient had two sepsis criteria on admission and developed hypotension requiring the use of IV vasopressors shortly after. Likely secondary to neutropenic enterocolitis and UTI. Improved. The patient has been afebrile. Hypotension has resolved. The patient' s neutopenia has resolved, but she now has leukocytosis (likely secondary to steroids) and continues to have bandemia. Blood culture drawn 11/28/16 x 1 set is negative. (2) Enterocolitis Current Visit: Yes Status: Acute Likely neutropenic enterocolitis secondary to recent chemotherapy. CT scan of the abdomen and pelvis 11/28/16 showed no significant interval change in pancreatic neoplasm, peripancreatic stranding, and peripancreatic and retroperitoneal adenopathy since 11/26/2016.A few of the retroperitoneal lymph nodes have slightly increased in size since 10/22/2016. It also showed pneumobilia with common bile duct stent placement. There was a new small amount of gas within the gallbladder, also likely related to stent placement. Additionally, mildly dilated loops of small bowel within the proximal jejunum in the left mid abdomen with mild perienteric stranding. No discrete transition point was identified. Findings favored an ileus related to enteritis than small bowel obstruction. Clinically, the patient is improved. She continues to have leukocytosis with bandemia, but the patient did receive 4 days of steroids. Her WBC is down marginally from yesterday. The patient has been on treatment since 11/28/16 (day 9). Continue Zosyn 3.375 grams IV Q8H. Discontinue flagyl. Duration of treatment depends on the clinical picture, but likely 14 days. We will likely be able to transition the patient to oral antibiotics when ready for discharge. Recommend Cipro and Flagyl to complete the 14 day course. Monitor renal function and dose-adjust antibiotics. (3) UTI (urinary tract infection) Current Visit: Yes Status: Acute Causative organism Pseudomonas aeruginosa, resistant to fluoroquinolones. Currently on day 8 of Zosyn. The patient has been treated adequately for the UTI, but will need to continue antibiotic therapy for her enteritis. Qualifiers: Urinary tract infection type: acute cystitis Hematuria presence: without hematuria Qualified Code(s): N30.00 - Acute cystitis without hematuria (4) Pneumobilia Current Visit: Yes Status: Acute Noted on CT scan on admission. Likely secondary to recent biliary stent placement. GI consulted --> no further intervention required. (5) Hyponatremia Current Visit: Yes Status: Resolved (6) Nausea & vomiting Current Visit: Yes Status: Acute Qualifiers: Vomiting type: cyclical vomiting Vomiting Intractability: non-intractable Qualified Code(s): G43.A0 - Cyclical vomiting, not intractable (7) Atrial fibrillation Current Visit: Yes Status: Chronic Qualifiers: Atrial fibrillation type: chronic Qualified Code(s): I48.2 - Chronic atrial fibrillation (8) Diabetes Current Visit: Yes Status: Chronic Qualifiers: Diabetes mellitus type: type 2 Diabetes mellitus complication status: without complication Diabetes mellitus half-way insulin use: without superintendent terminal use Qualified Code(s): E11.9 - Type 2 diabetes mellitus without complications (9) Thyroid disease Current Visit: Yes Status: Chronic (10) Pancreatic cancer Current Visit: Yes Status: Chronic Diagnosed in July 2016. Follows with the [facility] - Dr. Enriquez. Currently on Gemcitibine/Abraxane chemo weekly x 3 weeks with 28 day cycle. Last chemo treatment 11/22/16. Recommend Hem/Onc consult for further recommendations. Qualifiers: Pancreatic malignancy location: unspecified Qualified Code(s): C25.9 - Malignant neoplasm of pancreas, unspecified - Subjective Interval history: Patient seen and examined. No acute events noted overnight. Patient reports she feels a little bit better today than yesterday. Denies fevers, chills, or rigors. Denies chest pain, shortness of breath, or cough. Reports some heartburn that is better since sitting up in bed. Denies nausea, vomiting, or constipation. States her stools are loose, but they do have some formed stool mixed in. Denies abdominal or back pain. Denies urinary complaints. Denies oral thrush or skin lesions. Infect Dis PN-Objective Data - Labs CBC & Chem 7: 12/06/16 03:50 12/06/16 03:50 Labs: Laboratory Results - last 24 hr 12/05/16 12/06/16 12/06/16 07:28 03:50 03:50 WBC 19.4 H RBC 2.84 L Hgb 9.2 L Hct 28.3 L MCV 99.6 MCH 32.4 MCHC 32.5 RDW 16.2 H Plt Count 344 MPV 9.2 L Seg Neutrophils % 54.0 Lymphocytes % 22.0 Eosinophils % 4.0 Metamyelocytes % 2.0 H Myelocytes % 18.0 H Neutrophils # 10.5 H Lymphocytes # 4.3 Eosinophils # 0.8 H Nucleated RBCs/100 WBC 0.4 H Platelet Estimate Normal Sodium 137 Potassium 3.3 L Chloride 109 Carbon Dioxide 21 BUN 10 Creatinine 0.69 Est GFR ( Amer) > 60 Est GFR (Non-Af Amer) > 60 BUN/Creatinine Ratio 14 Glucose 111 H POC Glucose 115 H Calculated Osmolality 284 Calcium 7.9 L Magnesium 1.5 L Cultures: Cultures 11/28/16 16:18 Blood Culture - Final Peripheral Venipuncture No growth. 11/28/16 20:00 Urine Culture - Final Urine,Clean Catch Pseudomonas aeruginosa Serology 11/29/16 11/29/16 11/29/16 Range/Units 22:30 22:30 22:00 Urine Color (Yellow) Urine Clarity (Clear) Urine pH (5.0-8.0) pH Units Ur Specific [place] (1.010-1.025) Urine Protein (Neg-Trace) mg/dL Urine Glucose (UA) (Normal) mg/dL Urine Ketones (Negative) mg/dL Urine Blood (Negative) Urine Nitrite (Negative) Urine Bilirubin (Negative) Urine Urobilinogen (Normal) mg/dL Ur Leukocyte Esterase (Negative) Urine Microscopic RBC (0-3) per hpf Urine Microscopic WBC (0-3) per hpf Ur Squamous Epith Cells (None-Few) per lpf Urine Bacteria (None-Few) per hpf Hyaline Casts (None-Few) per lpf Ur Culture Indicated? (NO) Urine Osmolality 386 (300-1090) mOsm/kg Urine Creatinine 82 mg/dL Protein/Creatinin Ratio 0.38 H (0-0.20) mg/mg Urine Sodium 38.0 mEq/L Urine Potassium 30.1 mEq/L Urine Total Protein 31 H (1-14) mg/dL Stl C. diff Tox B Gene (Negative) 11/29/16 11/28/16 Range/Units 09:21 20:00 Urine Color Yellow (Yellow) Urine Clarity Cloudy A (Clear) Urine pH 7.0 (5.0-8.0) pH Units Ur Specific [place] 1.015 (1.010-1.025) Urine Protein Negative (Neg-Trace) mg/dL Urine Glucose (UA) Normal (Normal) mg/dL Urine Ketones Negative (Negative) mg/dL Urine Blood Negative (Negative) Urine Nitrite Positive A (Negative) Urine Bilirubin Negative (Negative) Urine Urobilinogen Normal (Normal) mg/dL Ur Leukocyte Esterase Negative (Negative) Urine Microscopic RBC 0-3 (0-3) per hpf Urine Microscopic WBC 3-5 H (0-3) per hpf Ur Squamous Epith Cells Many H (None-Few) per lpf Urine Bacteria Many H (None-Few) per hpf Hyaline Casts None Seen (None-Few) per lpf Ur Culture Indicated? YES A (NO) Urine Osmolality (300-1090) mOsm/kg Urine Creatinine mg/dL Protein/Creatinin Ratio (0-0.20) mg/mg Urine Sodium mEq/L Urine Potassium mEq/L Urine Total Protein (1-14) mg/dL Stl C. diff Tox B Gene Negative (Negative) Exam - Constitutional Vitals: Temp Pulse Resp BP Pulse Ox 98.2 F 82 16 121/75 99 12/06/16 11:39 12/06/16 11:39 12/06/16 11:39 12/06/16 11:39 12/06/16 11:39 General appearance: average body habitus, cooperative, no acute distress - Head Head exam: Present: atraumatic, normal inspection, normocephalic - Eye Eye exam: Present: EOMI, normal appearance, PERRL Pupils: Present: normal accommodation - ENT ENT exam: Present: mucous membranes moist - Neck Neck exam: Present: normal inspection - Respiratory Respiratory exam: Present: CTAB. Absent: rales, respiratory distress, rhonchi, wheezes - Cardiovascular Cardiovascular exam: Present: irregular rhythm. Absent: tachycardia - GI/Abdominal GI/Abdominal exam: Present: normal bowel sounds, soft. Absent: distended, tenderness - Extremities Exam Extremities exam: Present: pedal edema (2+ BLE). Absent: joint swelling, tenderness - Neurological Exam Neurological exam: Present: alert, oriented X3, no focal deficits - Psychiatric Psychiatric exam: Present: normal affect, normal mood - Skin Skin exam: Present: dry, intact, normal color, warm Consult Discharge Plan - Plan Instructions: Ciprofloxacin (By mouth), Metronidazole (By mouth) Additional Instructions: Please follow up with your primary care provider within 1 week of discharge. Please follow up with your oncologist. Please resume your home medications as prescribed. Please take your new medications as prescribed: Please take you antibiotics for the next 7 days as prescribed. Please fill your antibioitc prescriptions todaya nd take two doses of the flagyl and one dose of Cipro today before starting the prescribed orders of Cipro twice a day and flagyl three times a day. Please take your potassium and magnesium until you see your primary care provider. Please return to the hospital if you experience any new or worsening symptoms. Referrals: Rene Jacob Jr, MD [Primary Care Provider] - 12/12/16 11:00 am (Please follow up with your primary care provider) Prescriptions: Ciprofloxacin [Cipro] 500 mg PO BID #15 tablet Magnesium Oxide [Mag-Ox] 400 mg PO DAILY #30 tablet metroNIDAZOLE [Flagyl] 500 mg PO TID #23 tablet Potassium Chloride 10 meq PO DAILY #30 tab.er.prt
== END 2016-12-06 14:36 | disposition home or self-care (01) | DRG 871 ==
LOC: EMEROO 10:59 → 3ANU 10:59 → ICNU 11-29 17:31 → 2ANU 12-03 16:47
PROVIDERS: ADMIT Internal Medicine; ATTEND Internal Medicine

== ENCOUNTER 2017-09-19 09:04 | Inpatient (IN) ==
[2017-09-19] MEDS ORDERED: Ondansetron 4 MG/2 ML VIAL IVP ONE (09:19)
[2017-09-19] MEDS: 0.9 % Sodium Chloride 1,000 ML IVC ONE ×2 (09:42→13:11)
[2017-09-19 10:01] LABS: Hematocrit 37.2 % (35.3-44.9); Hemoglobin 12.3 g/dL (11.5-15.4); Mean Corpuscular HGB Conc 33.1 g/dL (31.6-35.5); Mean Corpuscular Hemoglobin 31.1 pg (28.0-33.3); Mean Corpuscular Volume 94.2 fL (83.0-100.0); Mean Platelet Volume 10.1 fL (9.4-12.4); Platelet Count 309 K/mcL (140-400); Red Blood Count 3.95 M/mcL (3.82-4.97); Red Cell Distribution Width 15.7 % (11.5-14.5)
--- NOTE | 2017-09-19 10:28 | Emergency Department Note ---
Disposition Clinical Impression: Dehydration Hypotension Qualifiers: Hypotension type: other hypotension type Qualified Code(s): I95.89 - Other hypotension Diarrhea Qualifiers: Diarrhea type: unspecified type Qualified Code(s): R19.7 - Diarrhea, unspecified Disposition: Admitted As Inpatient Condition: Fair Time of Disposition: 12:21 Nausea/Vomiting/Diarrhea HPI - General Chief complaint: ED Nausea/Vomiting/Diarrhea Stated complaint: N/V/D, chills, weakness Time Seen by Provider: 09/19/17 09:19 Source: patient Limitations: no limitations Nursing Notes Reviewed: Yes Vital Signs Reviewed: Yes - History of Present Illness HPI Narrative: I did review the previous record, the patient does have pancreatic cancer with recent surgery and does have documentation of the record of a positive Clostridium difficile test recently, she is using Flagyl and does not use any other medication, continues to have diarrhea 7 or 8 times a day which is now worse, generalized weakness, lightheadedness, no fever or abdominal pain. No blood in the urine or stool. Diarrhea is intermittent and significan in frequency. Does have chronic lower extremity edema but nothing new. No respiratory symptoms. Social history: No smoking, alcohol, drugs - Related Data Home Medications Medication Instructions Recorded Confirmed Levothyroxine [Synthroid] 100 mcg PO DAILY 07/15/15 09/19/17 Diltiazem CD (24hr) [Cardizem CD] 120 mg PO DAILY 10/30/16 09/19/17 Metoprolol Succinate 100 mg PO DAILY 10/30/16 09/19/17 Hemp Oil 1 dropperful PO DAILY 02/14/17 09/19/17 Lactobacillus Combination No.8 1 each PO DAILY 05/23/17 09/19/17 [Adult Probiotic] Rivaroxaban [Xarelto] 20 mg PO DAILY 05/23/17 09/19/17 Ferrous Sulfate [Iron] 325 mg PO BID 09/19/17 09/19/17 Ibuprofen [Ibu] 600 mg PO TID PRN 09/19/17 09/19/17 Previous Rx's Medication Instructions Recorded Prochlorperazine Maleate 10 mg PO Q8HR PRN #90 tablet 10/30/16 [Compazine] Magnesium Oxide [Mag-Ox] 400 mg PO DAILY #30 tablet 12/06/16 Furosemide [Lasix] 20 mg PO DAILY #30 tablet 07/09/17 Lipase/Protease/Amylase [Creon Dr 1 each PO TID #90 cap 09/02/17 36,000 Units Capsule] metroNIDAZOLE [Flagyl] 500 mg PO TID #30 tablet 09/09/17 Allergies Allergy/AdvReac Type Severity Reaction Status Date / Time duloxetine Allergy Intermediate Nausea Verified 09/06/17 09:20 Review of Systems: Constitutional: No fever Vision: No blurred vision ENT: No rhinorrhea Respiratory: No cough Allergic: No allergies : No blood in urine GI: No blood in stool Hematologic: No bruising Dermatologic: No skin rash Musculoskeletal: No pain in the extremities Neuro: No numbness of the extremities Past Medical History - Past Medical History Medical history: Reports: arthritis, atrial fibrillation, GERD, thyroid disease Surgical history: Reports: hysterectomy (Total), other (Nephrectomy of right kidney, Thyroid nodule removal) Psychiatric history: Reports: no psych history - Social History Smoking Status: Never smoker Smokeless Tobacco Status: No Alcohol use: Reports: none Drug use: Reports: none Physical Exam CONSTITUTIONAL: Alert and oriented X3, well-nourished, well appearing, in no apparent distress HEAD: Normocephalic; atraumatic. EYES: PERRL, no scleral icterus. NOSE: The nose is normal in appearance without rhinorrhea RESP: Normal chest excursion with respiration; breath sounds clear and equal bilaterally; no wheezes, rhonchi, or rales CARD: Regular rhythm, without murmurs, rub or gallop ABD: Non-distended; non-tender, soft,without rigidity, rebound or guarding , well-healed surgical scar SKIN: Normal for age and race; warm and dry; no apparent lesions - General Limitations: no limitations General appearance: alert, in no apparent distress Course Vital Signs Temperature 98.6 F 09/19/17 09:12 Pulse Rate 124 09/19/17 09:12 Respiratory Rate 18 09/19/17 09:12 Blood Pressure 97/87 09/19/17 09:12 O2 Sat by Pulse Oximetry 96 09/19/17 09:12 Temperature 98.6 F 09/19/17 09:12 Pulse Rate 120 09/19/17 12:43 Respiratory Rate 20 09/19/17 12:43 Blood Pressure 113/74 09/19/17 12:43 O2 Sat by Pulse Oximetry 98 09/19/17 12:43 Oxygen Delivery Oxygen Delivery Room Air Nausea/Vomiting/Diarrhea - MDM Narrative Medical decision making narrative: Patient presented with tachycardia with EKG showed atrial fibrillation with a rapid ventricular response however this is likely reactive due to her dehydration and not from a true atrial fibrillation arrhythmia so the patient is being treated with IV fluids. She has had improvement in her heart rate is now down to 120. She did have significant hypotension per the paramedics and I did speak with them upon arrival and I did see the patient immediately upon arrival and her blood pressure was 80 from the paramedics. Is improved at this time. The patient will be reassessed. 1030 PUlse down to 106. Will recheck pressure. Lab machine down so electrolyte result will b delayed 1120 I did review the patient's lab results and the patient will be admitted. I did speak with the hospitalist who accepts the patient for admission for dehydration , IV fluids, tachycardia as well as oral vancomycin. They did request blood cultures and chest x-ray and I did order these tests. 1220 - Medical Records Medical records reviewed: Yes I reviewed the patient's medical records. - Lab Data Lab results reviewed: Yes I reviewed the patient's lab results. Result diagrams: 09/19/17 09:41 09/19/17 09:41 Lab Results 09/19/17 09/19/17 09/19/17 Range/Units 09:40 09:41 09:41 WBC 16.3 H (4.3-11.1) K/mcL RBC 3.95 (3.82-4.97) M/mcL Hgb 12.3 (11.5-15.4) g/dL Hct 37.2 (35.3-44.9) % MCV 94.2 (83.0-100.0) fL MCH 31.1 (28.0-33.3) pg MCHC 33.1 (31.6-35.5) g/dL RDW 15.7 H (11.5-14.5) % Plt Count 309 (140-400) K/mcL MPV 10.1 (9.4-12.4) fL Sodium 137 (136-145) mEq/L Potassium 3.6 (3.5-5.1) mEq/L Chloride 109 H (98-107) mEq/L Carbon Dioxide 20 L (23-29) mEq/L BUN 7 L (8-23) mg/dL Creatinine 0.71 (0.60-1.20) mg/dL Est GFR ( Amer) > 60 (> 60) Est GFR (Non-Af Amer) > 60 (> 60) BUN/Creatinine Ratio 10 (6-26) Glucose 131 H (70-105) mg/dL Calculated Osmolality 284 (280-300) Lactic Acid (0.5-2.2) mmol/L Calcium 8.6 (8.6-10.3) mg/dL Total Bilirubin 0.7 (0.3-1.0) mg/dL Direct Bilirubin 0.2 (0.0-0.2) mg/dL Indirect Bilirubin 0.5 (0.0-1.2) mg/dL AST 22 (13-39) Units/L ALT 7 (7-52) Units/L Alkaline Phosphatase 123 H (34-104) Units/L Serum Total Protein 5.3 L (6.4-8.9) g/dL Albumin 3.1 L (3.5-5.7) g/dL Globulin 2.2 L (2.4-3.5) g/dL Albumin/Globulin Ratio 1.4 (1.1-2.2) Urine Color (Yellow) Urine Clarity (Clear) Urine pH (5.0-8.0) pH Units Ur Specific [place] (1.010-1.025) Urine Protein (Neg-Trace) mg/dL Urine Glucose (UA) (Normal) mg/dL Urine Ketones (Negative) mg/dL Urine Blood (Negative) Urine Nitrite (Negative) Urine Bilirubin (Negative) Urine Urobilinogen (Normal) mg/dL Ur Leukocyte Esterase (Negative) Urine Microscopic RBC (0-3) per hpf Urine Microscopic WBC (0-3) per hpf Ur Squamous Epith Cells (None-Few) per lpf Ur Transition Epith Cell (None-Few) per hpf Ur Renal Epithelial Cell (None-Few) per hpf Urine Bacteria (None-Few) per hpf Hyaline Casts (None-Few) per lpf Stl C. diff Tox B Gene Negative (Negative) 09/19/17 09/19/17 Range/Units 09:41 11:28 WBC (4.3-11.1) K/mcL RBC (3.82-4.97) M/mcL Hgb (11.5-15.4) g/dL Hct (35.3-44.9) % MCV (83.0-100.0) fL MCH (28.0-33.3) pg MCHC (31.6-35.5) g/dL RDW (11.5-14.5) % Plt Count (140-400) K/mcL MPV (9.4-12.4) fL Sodium (136-145) mEq/L Potassium (3.5-5.1) mEq/L Chloride (98-107) mEq/L Carbon Dioxide (23-29) mEq/L BUN (8-23) mg/dL Creatinine (0.60-1.20) mg/dL Est GFR ( Amer) (> 60) Est GFR (Non-Af Amer) (> 60) BUN/Creatinine Ratio (6-26) Glucose (70-105) mg/dL Calculated Osmolality (280-300) Lactic Acid 2.7 H (0.5-2.2) mmol/L Calcium (8.6-10.3) mg/dL Total Bilirubin (0.3-1.0) mg/dL Direct Bilirubin (0.0-0.2) mg/dL Indirect Bilirubin (0.0-1.2) mg/dL AST (13-39) Units/L ALT (7-52) Units/L Alkaline Phosphatase (34-104) Units/L Serum Total Protein (6.4-8.9) g/dL Albumin (3.5-5.7) g/dL Globulin (2.4-3.5) g/dL Albumin/Globulin Ratio (1.1-2.2) Urine Color Yellow (Yellow) Urine Clarity Clear (Clear) Urine pH 5.0 (5.0-8.0) pH Units Ur Specific [place] 1.014 (1.010-1.025) Urine Protein Negative (Neg-Trace) mg/dL Urine Glucose (UA) Normal (Normal) mg/dL Urine Ketones Negative (Negative) mg/dL Urine Blood Negative (Negative) Urine Nitrite Negative (Negative) Urine Bilirubin Negative (Negative) Urine Urobilinogen Normal (Normal) mg/dL Ur Leukocyte Esterase Moderate H (Negative) Urine Microscopic RBC 3-5 H (0-3) per hpf Urine Microscopic WBC 15-30 H (0-3) per hpf Ur Squamous Epith Cells Many H (None-Few) per lpf Ur Transition Epith Cell Few (None-Few) per hpf Ur Renal Epithelial Cell Few (None-Few) per hpf Urine Bacteria Many H (None-Few) per hpf Hyaline Casts None Seen (None-Few) per lpf Stl C. diff Tox B Gene (Negative)
[2017-09-19 11:37] LABS: Bilirubin,Urine Negative (Negative); Blood,Urine Negative (Negative); Color,Urine Yellow (Yellow); Glucose,Urine (UA) Normal (Normal); Ketones,Urine Negative (Negative); Leukocyte Esterase,Urine Moderate (Negative); Nitrite,Urine Negative (Negative); Protein,Urine Negative (Neg-Trace); Specific Gravity,Urine 1.014 (1.010-1.025); Urobilinogen,Urine Normal (Normal)
[2017-09-19 11:39] LABS: Hyaline Casts,Urine None Seen per lpf (None-Few); Squamous Epithelial Cell,Urine Many per lpf (None-Few); WBC,Urine 15-30 per hpf (0-3)
[2017-09-19 11:43] LABS: Clarity,Urine Clear (Clear)
[2017-09-19 11:45] LABS: Alanine Aminotransferase 7 Units/L (7-52); Albumin 3.1 g/dL (3.5-5.7); Albumin/Globulin Ratio 1.4 (1.1-2.2); Aspartate Amino Transferase 22 Units/L (13-39); BUN/Creatinine Ratio 10 (6-26); Bilirubin,Direct 0.2 mg/dL (0.0-0.2); Bilirubin,Indirect 0.5 mg/dL (0.0-1.2); Bilirubin,Total 0.7 mg/dL (0.3-1.0); Blood Urea Nitrogen 7 mg/dL (8-23); Calcium 8.6 mg/dL (8.6-10.3); Carbon Dioxide 20 mEq/L (23-29); Chloride 109 mEq/L (98-107); Globulin 2.2 g/dL (2.4-3.5); Glucose 131 mg/dL (70-105); Osmolality,Calculated 284 (280-300); Potassium 3.6 mEq/L (3.5-5.1); Sodium 137 mEq/L (136-145); Total Protein 5.3 g/dL (6.4-8.9); eGFR For African Americans > 60 (> 60); eGFR For Non-African Americans > 60 (> 60)
[2017-09-19 11:46] LABS: Alkaline Phosphatase 123 Units/L (34-104)
[2017-09-19 12:04] LABS: Bacteria,Urine Many per hpf (None-Few)
[2017-09-19 12:05] LABS: Renal Epithelial Cells,Urine Few per hpf (None-Few); Transitional Epi Cells,Urine Few per hpf (None-Few)
[2017-09-19] MEDS ORDERED: Vancomycin Oral Soln 125 MG/2.5 ML UDC PO STA (12:15)
[2017-09-19] MEDS ORDERED: Naloxone 0.4 MG/ML INJ IVP PRN (12:36)
[2017-09-19] MEDS ORDERED: Magic Mouthwash 10 ML UD Cup PO PRN (12:43)
[2017-09-19] MEDS ORDERED: DIMETHICONE APPL TP PRN (12:43)
[2017-09-19] MEDS ORDERED: Diphenoxylate/Atropine 1 TAB TABLET PO PRN (12:43)
[2017-09-19] MEDS ORDERED: 0.9 % Sodium Chloride 1,000 ML ONE (13:05)
[2017-09-19] MEDS: Vancomycin Oral Soln 125 MG/2.5 ML UDC PO SCH ×3 (13:07→20:47)
--- NOTE | 2017-09-19 14:29 | Internal Med History&Physical ---
Date of Encounter: 09/20/17 Time of Encounter: 14:00 Internal Medicine - H&P: HPI Chief complaint: Diarrhea of about a month duration, nausea,vomting, abdominal pain History of present illness: Ms. Workman is a 77 year old female with pmh of pancreatic cancer s/p whipple procedure at the end of july, atrial fibrillation, nephrectomy presenting with complaints of diarrhea of about a months duration, for which she was on flagyl for the last 2 weeks for c .diff which she was told she tested positive for. She complains of non stop diarrhea with nausea and dry heaving and diffuse abdominal pain which started in the last 24hrs. She says abdominal pain is diffuse and woke up with pain under the ribs. she admits to occasional subjective fevers. She denies any other acute complaints such as shortness of breath, chest pain. She was noted to have a leukocytosis in the ER of 16. A c diff study was however done which came back negative in the ER today. she was also noted to be tachycardic up to the 140s and was started on a cardizem drip Past Med Surg Social Fam HX - Past Medical History Medical history: arthritis, atrial fibrillation, GERD, thyroid disease Additional medical history: C-diff since July Psychiatric history: no psych history - Past Surgical History Surgical History: hysterectomy (Total), other (Nephrectomy of right kidney, Thyroid nodule removal) Additional surgical history: pancreatic surgery, thyroid surgery, nephrectomy. - Social History Smoking Status: Never smoker Smokeless Tobacco Status: No Alcohol use: none Drug use: none - Family History Father Family Member Ethnicity: Non- Living Status: Hx Family Endocrine Disorder: Yes (DM) Mother Family Member Ethnicity: Non- Living Status: Hx Family Cardiac Disorders: Yes (Heart murmur) Hx Family Neurologic Disorders: Yes (Alzheimer's disease) Brother Family Member Ethnicity: Non- Living Status: Still Living Hx Family Cardiac Disorders: Yes (CAD, pacemaker) Sister Family Member Ethnicity: Non- Living Status: Hx Family Cancer: Yes (Ovarian) Internal Medicine - H&P: Meds Levothyroxine [Synthroid] 100 mcg PO DAILY 07/15/15 [History] Diltiazem CD (24hr) [Cardizem CD] 120 mg PO DAILY 10/30/16 [History] Metoprolol Succinate 100 mg PO DAILY 10/30/16 [History] Prochlorperazine Maleate [Compazine] 10 mg PO Q8HR PRN #90 tablet 10/30/16 [Rx] Magnesium Oxide [Mag-Ox] 400 mg PO DAILY #30 tablet 12/06/16 [Rx] Hemp Oil 1 dropperful PO DAILY 02/14/17 [History] Lactobacillus Combination No.8 [Adult Probiotic] 1 each PO DAILY 05/23/17 [ History] Rivaroxaban [Xarelto] 20 mg PO DAILY 05/23/17 [History] Furosemide [Lasix] 20 mg PO DAILY #30 tablet 07/09/17 [Rx] Lipase/Protease/Amylase [Creon Dr 36,000 Units Capsule] 1 each PO TID #90 cap [Rx] metroNIDAZOLE [Flagyl] 500 mg PO TID #30 tablet 09/09/17 [Rx] Ferrous Sulfate [Iron] 325 mg PO BID 09/19/17 [History] Ibuprofen [Ibu] 600 mg PO TID PRN 09/19/17 [History] 3 Allergy/AdvReac Type Severity Reaction Status Date / Time duloxetine Allergy Intermediate Nausea Verified 09/06/17 09:20 All Systems PM: A 10-system review of systems was performed and is negative for pertinent findings except as documented above in the HPI. - Constitutional Constitutional: no chills, no fever(s), no night sweats - EENT Eyes: no change in vision, no discharge, no pain, no photophobia Ears: no ear discharge, no ear pain, no tinnitus Nose, mouth and throat: no dysphagia, no nasal discharge, no neck pain, no sore throat - Cardiovascular Cardiovascular ROS IM: no chest pain, no diaphoresis, no dyspnea, no lightheadedness, no palpitations, no syncope - Respiratory Respiratory: no cough, no dyspnea, no wheezing, no excessive phlegm production - Gastrointestinal Gastrointestinal: abdominal pain, diarrhea, loose stools, vomiting, no hematemesis, no hematochezia, no melena, no nausea - Genitourinary Genitourinary: no change in urinary stream, no dysuria, no flank pain, no hematuria - Musculoskeletal Musculoskeletal ROS IM: no numbness, no tingling - Integumentary Integumentary IM: no rash, no unusual bruising - Neurological Neurological ROS: no confusion, no convulsions, no focal weakness, no numbness, no tingling, no tremor(s) - Hematologic/Lymphatic Hematologic/Lymphatic: no easy bruising - Constitutional Vitals: Temp Pulse Resp BP Pulse Ox 98.2 F 86 14 106/63 95 09/19/17 14:08 09/19/17 14:08 09/19/17 14:08 09/19/17 14:08 09/19/17 14:08 General appearance: Present: cachectic - Head Head exam: Present: atraumatic, normocephalic - Respiratory Respiratory exam: Present: CTAB. Absent: accessory muscle use, rales, rhonchi, wheezes - Cardiovascular Additional comments: tachycardic, irregularly irregular - GI/Abdominal GI/Abdominal exam: Present: soft, tenderness - Neurological Exam Neurological exam: Present: CN II-XII intact, oriented X3, no focal deficits. Absent: pronater drift, facial droop, speech deficit Internal Med - H&P Results - Labs CBC & Chem 7: 09/20/17 01:16 09/20/17 01:16 - Assessment and plan (1) SIRS (systemic inflammatory response syndrome) Current Visit: Yes Status: Acute Assessment and plan: SIRS r/o Sepsis from possible c diff vs UTI vs other etiology. Pt complains of diarrhea of a month duration and has elevated WBC and tachycardia. started on IV fluids and cipro, flagyl and po vancomycin. GI has been consulted and appreciate recommendation. Follow up GI panel, f/u CT abdomen (2) Atrial fibrillation with RVR Current Visit: Yes Status: Acute Assessment and plan: May be secondary to sepsis and dehydration. Continue IV fluids and cardizem drip. BP has been stable. WIll wean off cardizem drip as tolerated and transition to po cardizem and toprol xl. Continue xarelto for anticoagulation (3) UTI (urinary tract infection) Current Visit: No Status: Acute Assessment and plan: Continue ciprofloxacin Qualifiers: Urinary tract infection type: acute cystitis Hematuria presence: without hematuria Qualified Code(s): N30.00 - Acute cystitis without hematuria (4) Gastroenteritis Current Visit: Yes Status: Acute Assessment and plan: Severe diarrrhea of a month duration s/p surgery accompanied with nasuea and vomiting in last 24hrs. continue cipro, flagyl and po vanc. F/U stool panel. GI recs appreciated. Pt reports positive c diff outpatient, but c diff here was negative (5) Diarrhea Current Visit: Yes Status: Acute Assessment and plan: See gastroenteritis Qualifiers: Diarrhea type: unspecified type Qualified Code(s): R19.7 - Diarrhea, unspecified (6) DVT prophylaxis Current Visit: No Status: Chronic Assessment and plan: Contine xarelto (7) Hypothyroidism Current Visit: Yes Status: Acute Assessment and plan: Continue levothyroxine Qualifiers: Qualified Code(s): E03.9 - Hypothyroidism, unspecified - Time Spent With Patient Total time spent is greater than 50% in coordination of care (as documented) at patient's floor/unit and/or counseling patient:
[2017-09-19] MEDS ORDERED: Ondansetron 4 MG/2 ML VIAL IVP PRN (14:30)
[2017-09-19] MEDS ORDERED: Isovue-370 500 ML INFUS..BTL IV ONE ×2 (14:47→16:06)
[2017-09-19] MEDS: 0.9 % Sodium Chloride 1,000 ML IVC SCH (15:36)
[2017-09-19] MEDS: MetroNIDAZOLE 500 MG/100 ML 500 MG/100 ML BAG IVPB SCH (15:36)
[2017-09-19] MEDS: Cholestyramine 4 GM POWD.PACK PO SCH (15:38)
[2017-09-19] MEDS: *HR* Rivaroxaban 10 MG TABLET PO SCH (15:56)
[2017-09-19] MEDS: Diltiazem CD (24hr) 120 MG CAPSULE PO SCH (15:57)
[2017-09-19] MEDS: Metoprolol XL (24 HR) Succ 50 MG TAB.ER.24H PO SCH (15:57)
[2017-09-19 16:34] LABS: Adenovirus F 40/41 PCR Not detected (Not detect); Astrovirus PCR Not detected (Not detect); C.difficile Toxin A/B by PCR Not detected (Not detect); Campylobacter by PCR Not detected (Not detect); Cryptosporidium by PCR Not detected (Not detect); Cyclospora cayetanensis PCR Not detected (Not detect); E. coli O157 by PCR Not detected (Not detect); Entamoeba histolytica PCR Not detected (Not detect); Enteroaggregative E.coli(EAEC) Not detected (Not detect); Enteropathogenic E.coli(EPEC) Not detected (Not detect); Enterotoxigenic E.coli (ETEC) Not detected (Not detect); Giardia lamblia PCR Not detected (Not detect); Norovirus GI/GII PCR Not detected (Not detect); Plesiomonas shigelloides PCR Not detected (Not detect); Rotavirus A PCR Not detected (Not detect); Salmonella PCR Not detected (Not detect); Sapovirus PCR Not detected (Not detect); Shig/EnteroinvasiveE coli EIEC Not detected (Not detect); Shigalike tox-prod E coli STEC Not detected (Not detect); Vibrio PCR Not detected (Not detect); Vibrio cholerae PCR Not detected (Not detect); Yersinia enterocolitica PCR Not detected (Not detect)
[2017-09-19] MEDS: Ibuprofen 600 MG TABLET PO PRN (17:10)
[2017-09-19] MEDS: Melatonin 3 MG TABLET PO PRN (22:43)
[2017-09-20] MEDS: MetroNIDAZOLE 500 MG/100 ML 500 MG/100 ML BAG IVPB SCH ×3 (00:34→17:06)
[2017-09-20 00:49] LABS: blaKPC Carbapenem-Resist Gene Not Detected (Not Detect); mecA Methicillin-Resist Gene Not Detected (Not Detect); vanA/B Vancomycin-Resist Genes Not Detected (Not Detect)
[2017-09-20 00:50] LABS: Acinetobacter baumannii by PCR Not Detected (Not Detect); Candida albicans by PCR Not Detected (Not Detect); Candida glabrata by PCR Not Detected (Not Detect); Candida krusei by PCR Not Detected (Not Detect); Candida parapsilosis by PCR Not Detected (Not Detect); Candida tropicalis by PCR Not Detected (Not Detect); Enterococcus by PCR Not Detected (Not Detect); Escherichia coli by PCR ***DETECTED*** (Not Detect); Klebsiella oxytoca by PCR Not Detected (Not Detect); Klebsiella pneumoniae by PCR ***DETECTED*** (Not Detect); Pseudomonas aeruginosa by PCR Not Detected (Not Detect); Serratia marcescens by PCR Not Detected (Not Detect); Staphylococcus aureus by PCR Not Detected (Not Detect); Streptococcus agalactiae(B)PCR Not Detected (Not Detect); Streptococcus by PCR Not Detected (Not Detect); Streptococcus pneumoniae PCR Not Detected (Not Detect); Streptococcus pyogenes (A) PCR Not Detected (Not Detect)
[2017-09-20 01:46] LABS: Basophils % 0.2 %; Eosinophils % 0.2 %; Immature Granulocytes % 0.7 % (0-4); Lymphocytes # 0.8 K/mcL (0.6-4.6); Lymphocytes % 4.2 %; Mean Corpuscular HGB Conc 32.8 g/dL (31.6-35.5); Mean Corpuscular Hemoglobin 30.4 pg (28.0-33.3); Mean Corpuscular Volume 92.7 fL (83.0-100.0); Mean Platelet Volume 10.1 fL (9.4-12.4); Monocytes # 0.5 K/mcL (0.0-1.3); Monocytes % 2.6 %; Neutrophils # 17.5 K/mcL (1.6-8.9); Platelet Count 223 K/mcL (140-400); Red Blood Count 3.13 M/mcL (3.82-4.97); Segmented Neutrophils % 92.1 %
[2017-09-20 01:49] LABS: Hemoglobin 9.5 g/dL (11.5-15.4)
[2017-09-20 02:03] LABS: BUN/Creatinine Ratio 9 (6-26); Blood Urea Nitrogen 7 mg/dL (8-23); Calcium 7.4 mg/dL (8.6-10.3); Carbon Dioxide 20 mEq/L (23-29); Chloride 110 mEq/L (98-107); Glucose 128 mg/dL (70-105); Magnesium 1.2 mg/dL (1.6-2.6); Osmolality,Calculated 278 (280-300); Phosphorous 3.4 mg/dL (2.7-4.5); Potassium 3.8 mEq/L (3.5-5.1); Sodium 134 mEq/L (136-145); eGFR For African Americans > 60 (> 60); eGFR For Non-African Americans > 60 (> 60)
[2017-09-20] MEDS: 0.9 % Sodium Chloride 1,000 ML IVC SCH ×3 (03:45→17:11)
[2017-09-20] MEDS: Cholestyramine 4 GM POWD.PACK PO SCH ×3 (08:07→21:55)
[2017-09-20] MEDS ORDERED: Diltiazem CD (24hr) 120 MG CAPSULE PO SCH (09:00)
[2017-09-20] MEDS ORDERED: Magnesium Sulfate 2 GM/100 ML PIGGYBACK IVPB ONE (09:44)
[2017-09-20] MEDS: Metoprolol XL (24 HR) Succ 50 MG TAB.ER.24H PO SCH (09:45)
[2017-09-20] MEDS: Magnesium Oxide 400 MG TABLET PO SCH (09:46)
[2017-09-20] MEDS: Vancomycin Oral Soln 125 MG/2.5 ML UDC PO SCH ×4 (09:56→21:55)
--- NOTE | 2017-09-20 10:08 | Electrocardiograph Report ---
[address] [address] Test Date: 2017-09-19 Pat Name: Chiqui Workman Department: [id number] Room: 3A37 Gender: F Information Resources Director: JC : 1940 Requested By: Jeff Sparrow Order Number: [id number] Reading MD: Margarito Navarro Measurements Intervals [place] Rate: 129 P: OK: 0 QRS: 138 QRSD: 90 T: -37 QT: 308 QTc: 384 Interpretive Statements PROBABLY ATRIAL FIBRILLATION WITH RAPID VENTRICULAR RESPONSE BASELINE ARTIFACT COMPLICATES ACCURATE INTERPRETATION Electronically Signed On 09-20-2017 10:07:07 EDT by Margarito Navarro
--- NOTE | 2017-09-20 11:44 | Gastroenterology Consult Note ---
Date of Encounter: 09/20/17 Time of Encounter: 11:42 - Assessment and plan (1) Diarrhea Current Visit: Yes Status: Acute Assessment and plan: - Possibly secondary to infectious etiology - Also noted that she is s/p gallbladder and has some aspect of chronic diarrhea. - Noted to be s/p whipple surgery in July 2017 - Positive for c.diff toxin as outpatient, has been on Flagyl - C.diff toxin as well as GI panel negative on this admission - Started on oral vancomycin, WBC of 19.0. Vitals otherwise stable - Tolerating diet well. - CT scan showing possible enteritis in the area of hepatic flexure. Plan - Agree with oral vancomycin. - Start Questran 4g - Supportive care - Will collect fecal fat content in case she needs additional pancreatic enzymes. Will discuss further plan with Dr. Knutson. Further recommendations to follow. Qualifiers: Diarrhea type: presumed infectious Qualified Code(s): R19.7 - Diarrhea, unspecified (2) Gastroenteritis Current Visit: Yes Status: Acute Assessment and plan: as above. - Time Spent With Patient Total time spent is greater than 50% in coordination of care (as documented) at patient's floor/unit and/or counseling patient: GI History of Present Illness - Data of Consult Consult date: 09/20/17 Requesting Physician: Carlos Noonan - Consult Narrative Reason for consult: Diarrhea History of present illness: Ms. Workman is a 77 year old female with a PMHx of Arthritis, AFib, GERD, pancreatic cancer s/p whipple in July 2017. She presented to ED with a complaint of diarrhea x 3-4 weeks. She states that she was treaeted in [place] was positive for C. difficile at that time. She also reports sick contacts of her and mother who were also tested positive for C. difficile. She has been taking Flagyl consistently without any improvement of her symptoms. She states that she has approximately 6-7 loose, watery bowel movements per day and this has not changed in her course. She denies any symptoms of abdominal pain, melena, hematochezia. She does admit to some associated nausea and vomiting yesterday with mostly dry retching and no evidence of blood. Shortly after vomiting, she also noticed some abdominal pain located in a band across her upper abdomen which has resolved with pain medications in the ER. She notably tested negative for C. difficile while in emergency room at this visit. GI panel at this visit was negative however when cultures were positive for Escherichia coli, Klebsiella pneumonia PCR. CT scan of the abdomen shows postsurgical changes from the Whipple procedure, prominent intrahepatic biliary dilation, which is new when compared to the previous exam. Focal mural thickening of the hepatic flexure of the colon, increased fat stranding in the mesentery, diffuse anasarca. During time of interview today, patient states she has had 2 bowel movements so far this morning both loose and watery in nature. Her symptoms of nausea and vomiting however have resolved. She states she has been tolerating her diet well without any complaints. Denies any urinary complaints but has noticed her urine darkening in color yesterday. Past Med Surg Social Fam HX - Past Medical History Medical history: arthritis, atrial fibrillation, GERD, thyroid disease Additional medical history: C-diff since July Psychiatric history: no psych history - Past Surgical History Surgical History: hysterectomy (Total), other (Nephrectomy of right kidney, Thyroid nodule removal) Additional surgical history: pancreatic surgery, thyroid surgery, nephrectomy. - Social History Smoking Status: Never smoker Smokeless Tobacco Status: No Alcohol use: none Drug use: none - Family History Father Family Member Ethnicity: Non- Living Status: Hx Family Endocrine Disorder: Yes (DM) Mother Family Member Ethnicity: Non- Living Status: Hx Family Cardiac Disorders: Yes (Heart murmur) Hx Family Neurologic Disorders: Yes (Alzheimer's disease) Brother Family Member Ethnicity: Non- Living Status: Still Living Hx Family Cardiac Disorders: Yes (CAD, pacemaker) Sister Family Member Ethnicity: Non- Living Status: Hx Family Cancer: Yes (Ovarian) - Gastrointestinal Gastrointestinal: Present: change in bowel habits, diarrhea, nausea, vomiting. Absent: abdominal pain, bloating, coffee ground emesis, constipation, dyspepsia , heartburn, hematemesis, hematochezia, melena - Constitutional Constitutional: no anorexia, no fatigue - Cardiovascular Cardiovascular ROS: Absent: chest pain - Respiratory Respiratory IM: Absent: cough, dyspnea - Genitourinary Genitourinary: Present: change in color (Dark in color yesterday). Absent: Urinary frequency - Neurological ROS Neurological GI: Absent: dizziness - Integumentary Integumentary GI: Absent: rash - Constitutional Vitals: Temp Pulse Resp BP Pulse Ox 97.8 F 68 14 96/57 96 09/20/17 10:52 09/20/17 10:52 09/20/17 10:52 09/20/17 10:52 09/20/17 10:52 Exam: Gen.: Vitals noted. No acute distress. AAOx3 HEENT: PERRL/EOMI, oropharynx clear, Normocephalic, atraumatic, MMM Cardiac: RRR, no murmur, +S1/S2 Pulmonary: CTA bilaterally, no wheezes, rales or rhonchi, equal chest expansion Abdomen: soft, nontender, BS noted, no guarding, no rebound. Extremities: no BLE edema, nontender calf, no cyanosis or clubbing Neuro: A&Ox3, moves all extremities, no focal deficits Psych: Appropriate mood and behavior Results - Labs CBC & Chem 7: 09/20/17 01:16 09/20/17 01:16 Labs: Last Result Calcium 7.4 mg/dL (8.6-10.3) L 09/20/17 01:16 Entire Visit Hgb 9.5 g/dL (11.5-15.4) L D 09/20/17 01:16 Hct 29.0 % (35.3-44.9) L 09/20/17 01:16 Total Bilirubin 0.7 mg/dL (0.3-1.0) 09/19/17 09:41 AST 22 Units/L (13-39) 09/19/17 09:41 ALT 7 Units/L (7-52) 09/19/17 09:41 E. coli (PCR) DETECTED (Not Detect) A 09/19/17 12:29 - Impressions Impressions Abdomen/Pelvis CT 09/19/17 18:20 IMPRESSION: Changes compatible with interval Whipple procedure. There is prominent intrahepatic biliary dilation, which is new when compared to the previous exam. Stricture at the biliary -bowel anastomosis would be considered. In addition, there is hyperdense material within the central bile ducts, which may represent sludge versus refluxed material. Focal mural thickening of the hepatic flexure of the colon, nonspecific, but compatible with focal colitis. Increased fat stranding within the mesentery, presumably treatment related. 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 Portal vein remains patent. Diffuse anasarca, new when compared to the previous exam, with small bilateral pleural effusions, free pelvic fluid, mesenteric edema, and subcutaneous edema. D/ / Kavon Hodge MD / Kavon Hodge MD Interpreting Provider: Kavon Hodge MD Consult Discharge Plan - Plan Referrals: Rene Jacob Jr, MD [Primary Care Provider] - 09/30/17 11:00 am
[2017-09-20] MEDS ORDERED: *HR* Rivaroxaban 10 MG TABLET PO SCH (17:00)
[2017-09-20] MEDS: *HR* Rivaroxaban 10 MG TABLET PO SCH (17:05)
[2017-09-20] MEDS: Diltiazem CD (24hr) 120 MG CAPSULE PO SCH (17:05)
[2017-09-21] MEDS: MetroNIDAZOLE 500 MG/100 ML 500 MG/100 ML BAG IVPB SCH ×4 (00:46→23:53)
[2017-09-21] MEDS: Melatonin 3 MG TABLET PO PRN ×2 (00:52→21:48)
[2017-09-21] MEDS: Ibuprofen 600 MG TABLET PO PRN (04:42)
[2017-09-21] MEDS: Metoprolol XL (24 HR) Succ 50 MG TAB.ER.24H PO SCH (09:04)
[2017-09-21] MEDS: Vancomycin Oral Soln 125 MG/2.5 ML UDC PO SCH ×4 (09:05→21:49)
[2017-09-21] MEDS: 0.9 % Sodium Chloride 1,000 ML IVC SCH (09:06)
[2017-09-21] MEDS: Magnesium Oxide 400 MG TABLET PO SCH (09:06)
[2017-09-21] MEDS: Cholestyramine 4 GM POWD.PACK PO SCH ×3 (09:07→21:53)
[2017-09-21 15:23] LABS: Basophils % 0.3 %; Eosinophils # 0.2 K/mcL (0.0-0.6); Eosinophils % 1.7 %; Hematocrit 31.1 % (35.3-44.9); Hemoglobin 10.6 g/dL (11.5-15.4); Immature Granulocytes % 0.7 % (0-4); Lymphocytes # 0.9 K/mcL (0.6-4.6); Lymphocytes % 7.5 %; Mean Corpuscular HGB Conc 34.1 g/dL (31.6-35.5); Mean Corpuscular Hemoglobin 30.9 pg (28.0-33.3); Mean Corpuscular Volume 90.7 fL (83.0-100.0); Mean Platelet Volume 11.2 fL (9.4-12.4); Monocytes # 0.4 K/mcL (0.0-1.3); Monocytes % 3.1 %; Neutrophils # 10.5 K/mcL (1.6-8.9); Platelet Count 192 K/mcL (140-400); Red Blood Count 3.43 M/mcL (3.82-4.97); Red Cell Distribution Width 15.9 % (11.5-14.5); Segmented Neutrophils % 86.7 %
[2017-09-21 17:05] LABS: BUN/Creatinine Ratio 14 (6-26); Blood Urea Nitrogen 9 mg/dL (8-23); Calcium 7.8 mg/dL (8.6-10.3); Carbon Dioxide 17 mEq/L (23-29); Chloride 114 mEq/L (98-107); Glucose 123 mg/dL (70-105); Magnesium 1.8 mg/dL (1.6-2.6); Osmolality,Calculated 282 (280-300); Potassium 4.4 mEq/L (3.5-5.1); Sodium 136 mEq/L (136-145); eGFR For African Americans > 60 (> 60); eGFR For Non-African Americans > 60 (> 60)
[2017-09-21] MEDS: *HR* Rivaroxaban 10 MG TABLET PO SCH (17:06)
[2017-09-21] MEDS: Diltiazem CD (24hr) 120 MG CAPSULE PO SCH (17:07)
[2017-09-21] MEDS ORDERED: Furosemide 40 MG TABLET PO ONE (17:30)
--- NOTE | 2017-09-22 00:44 | Internal Med Progress Note ---
Date of Encounter: 09/20/17 Time of Encounter: 19:00 - Assessment and plan (1) Diarrhea Current Visit: Yes Status: Acute Qualifiers: Diarrhea type: presumed infectious Qualified Code(s): R19.7 - Diarrhea, unspecified (2) Pancreatic cancer Current Visit: No Status: Chronic Qualifiers: Pancreatic malignancy location: unspecified Qualified Code(s): C25.9 - Malignant neoplasm of pancreas, unspecified (3) Atrial fibrillation Current Visit: No Status: Chronic Qualifiers: Atrial fibrillation type: chronic Qualified Code(s): I48.2 - Chronic atrial fibrillation (4) Hypothyroidism Current Visit: Yes Status: Acute Qualifiers: Hypothyroidism type: acquired Qualified Code(s): E03.9 - Hypothyroidism, unspecified - Time Spent With Patient Total time spent is greater than 50% in coordination of care (as documented) at patient's floor/unit and/or counseling patient: 25 - 35 minutes - Subjective Interval history: .. The patient had Whipple's procedure in July of this year. She was recently treated for C. difficile diarrhea. We admitted her for intractable diarrhea. At this time, her C. difficile testing is negative. Denies sore abdominal pain. She has off and on nausea but not vomiting. Denies chest pain. Denies difficulty breathing, coughing and wheezing. This patient has lost a lot of weight recently. OBJECTIVE: .. Skin: Free of rash and discoloration. ENMT: Oral/pharyngeal mucosa is normal in appearance. Eyes: Sclera is white. There is no discharge from eyes. Respiratory: Normal breath sounds; no crackles or wheezes. CV: Heart is regular; no gallop or murmur. GI: Abdomen is soft and not tender. There is no palpable mass or visceromegaly. Neuro: There is no focal deficits. ASSESSMENT AND PLAN: .. Diarrhea/have pancreatic cancer treated with Whipple's procedure. Recent history of for treatment for C. difficile colitis. We will keep her on IV Cipro and IV Flagyl. She is on nothing by mouth diet and IV fluids. We will continue Questran 4 g by mouth twice a day. Her blood cultures are growing gram-negative rods (2 of 2). A GI consult is pending. Atrial fibrillation. Rate controlled. Will continue Cardizem CD and Xarelto. Hypothyroidism. Clinically under control. We will continue Synthroid. - Constitutional Vitals: Temp Pulse Resp BP Pulse Ox 98.1 F 90 16 103/55 97 09/21/17 23:48 09/21/17 23:48 09/21/17 23:48 09/21/17 23:48 09/21/17 23:48 General appearance: Present: cachectic Internal Medicine: Result - Labs CBC & Chem 7: 09/22/17 06:58 09/22/17 06:58 Labs: Short CBC 09/21/17 Range/Units 14:58 WBC 12.1 H (4.3-11.1) K/mcL Hgb 10.6 L (11.5-15.4) g/dL Hct 31.1 L (35.3-44.9) % Plt Count 192 (140-400) K/mcL Neutrophils # 10.5 H (1.6-8.9) K/mcL BMP 09/21/17 14:58 Sodium 136 Potassium 4.4 Chloride 114 H Carbon Dioxide 17 L BUN 9 Creatinine 0.65 Glucose 123 H Calcium 7.8 L Consult Discharge Plan - Plan Referrals: Rene Jacob Jr, MD [Primary Care Provider] - 09/30/17 11:00 am
--- NOTE | 2017-09-22 00:47 | Internal Med Progress Note ---
Date of Encounter: 09/21/17 Time of Encounter: 19:00 - Assessment and plan (1) Diarrhea Current Visit: Yes Status: Acute Qualifiers: Diarrhea type: presumed infectious Qualified Code(s): R19.7 - Diarrhea, unspecified (2) Pancreatic cancer Current Visit: No Status: Chronic Qualifiers: Pancreatic malignancy location: unspecified Qualified Code(s): C25.9 - Malignant neoplasm of pancreas, unspecified (3) Atrial fibrillation Current Visit: No Status: Chronic Qualifiers: Atrial fibrillation type: chronic Qualified Code(s): I48.2 - Chronic atrial fibrillation (4) Hypothyroidism Current Visit: Yes Status: Acute Qualifiers: 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 The patient feels better. She reports to me decreased frequency of her bowel movements1 loose bowel movement for 2 hours average. She seems to have less nausea. Denies vomiting. Denies abdominal pain. Denies chest pain, difficulty breathing, coughing and wheezing. The patient had Whipple's procedure in July of this year. She was recently treated for C. difficile diarrhea. We admitted her for intractable diarrhea. At this time, her C. difficile testing is negative. Denies sore abdominal pain. She has off and on nausea but not vomiting. Denies chest pain. Denies difficulty breathing, coughing and wheezing. This patient has lost a lot of weight recently. OBJECTIVE: .. Skin: Free of rash and discoloration. ENMT: Oral/pharyngeal mucosa is normal in appearance. Eyes: Sclera is white. There is no discharge from eyes. Respiratory: Normal breath sounds; no crackles or wheezes. CV: Heart is regular; no gallop or murmur. GI: Abdomen is soft and not tender. There is no palpable mass or visceromegaly. Neuro: There is no focal deficits. ASSESSMENT AND PLAN: .. Diarrhea/have pancreatic cancer treated with Whipple's procedure. Recent history of for treatment for C. difficile colitis. She seems to be doing better. We will keep her on IV Cipro and IV Flagyl. We will continue Questran 4 g by mouth twice a day. Will stop IV fluids. We will advance her diet. Her blood cultures are growing gram-negative rods (2 of 2). A GI consult is pending. Atrial fibrillation. Rate controlled. Will continue Cardizem CD and Xarelto. Hypothyroidism. Clinically under control. We will continue Synthroid. - Constitutional Vitals: Temp Pulse Resp BP Pulse Ox 98.1 F 90 16 103/55 97 09/21/17 23:48 09/21/17 23:48 09/21/17 23:48 09/21/17 23:48 09/21/17 23:48 General appearance: Present: cachectic Internal Medicine: Result - Labs CBC & Chem 7: 09/22/17 06:58 09/22/17 06:58 Labs: Short CBC 09/21/17 Range/Units 14:58 WBC 12.1 H (4.3-11.1) K/mcL Hgb 10.6 L (11.5-15.4) g/dL Hct 31.1 L (35.3-44.9) % Plt Count 192 (140-400) K/mcL Neutrophils # 10.5 H (1.6-8.9) K/mcL BMP 09/21/17 14:58 Sodium 136 Potassium 4.4 Chloride 114 H Carbon Dioxide 17 L BUN 9 Creatinine 0.65 Glucose 123 H Calcium 7.8 L Consult Discharge Plan - Plan Referrals: Rene Jacob Jr, MD [Primary Care Provider] - 09/30/17 11:00 am
[2017-09-22 07:59] LABS: Basophils % 0.4 %; Eosinophils # 0.2 K/mcL (0.0-0.6); Eosinophils % 2.3 %; Hematocrit 30.3 % (35.3-44.9); Hemoglobin 10.3 g/dL (11.5-15.4); Immature Granulocytes % 0.8 % (0-4); Lymphocytes # 0.7 K/mcL (0.6-4.6); Lymphocytes % 8.6 %; Mean Corpuscular Volume 91.3 fL (83.0-100.0); Mean Platelet Volume 10.9 fL (9.4-12.4); Monocytes # 0.5 K/mcL (0.0-1.3); Monocytes % 6.1 %; Neutrophils # 6.5 K/mcL (1.6-8.9); Platelet Count 223 K/mcL (140-400); Red Blood Count 3.32 M/mcL (3.82-4.97); Red Cell Distribution Width 16.1 % (11.5-14.5); Segmented Neutrophils % 81.8 %
[2017-09-22] MEDS: Metoprolol XL (24 HR) Succ 50 MG TAB.ER.24H PO SCH (09:20)
[2017-09-22] MEDS: Magnesium Oxide 400 MG TABLET PO SCH (09:20)
[2017-09-22] MEDS: MetroNIDAZOLE 500 MG/100 ML 500 MG/100 ML BAG IVPB SCH ×3 (09:21→23:20)
[2017-09-22] MEDS: Vancomycin Oral Soln 125 MG/2.5 ML UDC PO SCH ×4 (09:21→19:53)
[2017-09-22] MEDS: Cholestyramine 4 GM POWD.PACK PO SCH ×4 (09:21→19:53)
[2017-09-22 09:33] LABS: BUN/Creatinine Ratio 10 (6-26); Blood Urea Nitrogen 6 mg/dL (8-23); Calcium 7.8 mg/dL (8.6-10.3); Carbon Dioxide 24 mEq/L (23-29); Chloride 109 mEq/L (98-107); Glucose 100 mg/dL (70-105); Magnesium 1.5 mg/dL (1.6-2.6); Osmolality,Calculated 278 (280-300); Potassium 3.2 mEq/L (3.5-5.1); Sodium 135 mEq/L (136-145); eGFR For African Americans > 60 (> 60); eGFR For Non-African Americans > 60 (> 60)
[2017-09-22] MEDS: *HR* Rivaroxaban 10 MG TABLET PO SCH (15:51)
[2017-09-22] MEDS: Diltiazem CD (24hr) 120 MG CAPSULE PO SCH (15:52)
[2017-09-22] MEDS: Melatonin 3 MG TABLET PO PRN (22:48)
--- NOTE | 2017-09-23 08:34 | Internal Med Progress Note ---
Date of Encounter: 09/22/17 Time of Encounter: 08:30 - Assessment and plan (1) Diarrhea Current Visit: Yes Status: Acute Qualifiers: Diarrhea type: presumed infectious Qualified Code(s): R19.7 - Diarrhea, unspecified (2) Pancreatic cancer Current Visit: No Status: Chronic Qualifiers: Pancreatic malignancy location: unspecified Qualified Code(s): C25.9 - Malignant neoplasm of pancreas, unspecified (3) Atrial fibrillation Current Visit: No Status: Chronic Qualifiers: Atrial fibrillation type: chronic Qualified Code(s): I48.2 - Chronic atrial fibrillation (4) Hypothyroidism Current Visit: Yes Status: Acute Qualifiers: 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 The patient feels progressively better. She reports to me decreased frequency of her bowel movements. She has 1 loose bowel movement every 2 hours. She seems to have less nausea. Denies vomiting. Denies abdominal pain. Denies chest pain, difficulty breathing, coughing and wheezing. The patient had Whipple's procedure in July of this year. She was recently treated for C. difficile diarrhea. We admitted her for intractable diarrhea. At this time, her C. difficile testing is negative. Denies sore abdominal pain. She has off and on nausea but not vomiting. Denies chest pain. Denies difficulty breathing, coughing and wheezing. This patient has lost a lot of weight recently. OBJECTIVE: .. Skin: Free of rash and discoloration. ENMT: Oral/pharyngeal mucosa is normal in appearance. Eyes: Sclera is white. There is no discharge from eyes. Respiratory: Normal breath sounds; no crackles or wheezes. CV: Heart is regular; no gallop or murmur. GI: Abdomen is soft and not tender. There is no palpable mass or visceromegaly. Neuro: There is no focal deficits. ASSESSMENT AND PLAN: .. Diarrhea/have pancreatic cancer treated with Whipple's procedure. Recent history of for treatment for C. difficile colitis. She seems to be doing better. We will keep her on IV Cipro and IV Flagyl. Will increase the Questran4 g by mouth 4 times a day instead of twice a day. Atrial fibrillation. Rate controlled. Will continue Cardizem CD and Xarelto. Hypothyroidism. Clinically under control. We will continue Synthroid. Vital signs are normal. Hemoglobin is 10.3; 10.6 yesterday. WBCs 8.0; 12.1 yesterday. Yesterday BMP was normal. Yesterday magnesium was 1.8. - Constitutional Vitals: Temp Pulse Resp BP Pulse Ox 97.8 F 87 14 104/68 96 09/23/17 05:40 09/23/17 05:40 09/23/17 05:40 09/23/17 05:40 09/23/17 05:40 General appearance: Present: cachectic Internal Medicine: Result - Labs CBC & Chem 7: 09/22/17 06:58 09/22/17 06:58 Labs: BMP 09/22/17 06:58 Sodium 135 L Potassium 3.2 L D Chloride 109 H Carbon Dioxide 24 BUN 6 L Creatinine 0.61 Glucose 100 Calcium 7.8 L Consult Discharge Plan - Plan Referrals: Rene Jacob Jr, MD [Primary Care Provider] - 09/30/17 11:00 am
[2017-09-23] MEDS: MetroNIDAZOLE 500 MG/100 ML 500 MG/100 ML BAG IVPB SCH (10:49)
[2017-09-23] MEDS: Magnesium Oxide 400 MG TABLET PO SCH (10:49)
[2017-09-23] MEDS: Metoprolol XL (24 HR) Succ 50 MG TAB.ER.24H PO SCH (10:49)
[2017-09-23] MEDS: Cholestyramine 4 GM POWD.PACK PO SCH ×2 (10:51→13:15)
[2017-09-23] MEDS: Vancomycin Oral Soln 125 MG/2.5 ML UDC PO SCH ×2 (10:52→13:15)
[2017-09-23 15:00] VITALS: BP 115/72
--- NOTE | 2017-09-23 17:21 | Discharge Summary ---
Orders not resulted at time of discharge: Pending orders 09/20/17 16:47 Fecal Fat, Quant. 72-hour Routine Date of Encounter: 09/23/17 Time of Encounter: 17:15 - Discharge Diagnosis (1) Diarrhea Priority: Primary Status: Acute Qualifiers: Diarrhea type: presumed infectious Qualified Code(s): R19.7 - Diarrhea, unspecified (2) Pancreatic cancer Priority: Secondary Status: Chronic Qualifiers: Pancreatic malignancy location: unspecified Qualified Code(s): C25.9 - Malignant neoplasm of pancreas, unspecified (3) Atrial fibrillation Priority: Secondary Status: Chronic Qualifiers: Atrial fibrillation type: chronic Qualified Code(s): I48.2 - Chronic atrial fibrillation (4) Hypothyroidism Priority: Secondary Status: Acute Qualifiers: 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 Workman is a 77 year old female. The patient was admitted with diarrhea for about 1 month duration; associated with nausea, vomiting and diffuse abdominal pain. It was in July of this year, when she had Whipple's procedure for treatment of pancreatic cancer. She was recently treated for C. difficile diarrhea; in the last 2 weeks preceding this admission. We tested her negative for C. difficile. Interestingly, her blood cultures showed Klebsiella pneumoniae and E. coli. Her urine culture showed Enterobacter cloacae complex and enterococcus species. She did not report to us any urinary symptoms. Her WBC at admission was 16.3 thousand. We treated her with IV Cipro/IV Flagyl. We offered her IV fluids. We offered her the Questraninitially twice a day, advance to 4 times a day. I suspect that this lady to have noninfectious diarrhea. Secondary to her Whipple's procedure/ pancreatic insufficiency. Her diarrhea was a kind of tolerable at the time of discharge1 no spinal movement every 2 hours. She was getting supplemental potassium chloride for treatment of hypokalemia. She felt pretty good on the day of discharge not having any significant abdominal pain, nausea or vomiting. Denied chest pain. Denied difficulty breathing. She was able to ambulate on her own. See discharge orders. Discharge discussed with: patient, nurse - Time Spent with Patient Total time spent providing and/or coordinating discharge services: Greater than 30 minutes (40 minutes) - Discharge Medications Prescriptions: Loperamide [Imodium] 2 mg PO Q4HR PRN #50 capsule PRN Reason: Diarrhea Cholestyramine 4 gm PO QID #120 powd.pack Home Medications: Levothyroxine [Synthroid] 100 mcg PO DAILY 07/15/15 [History] Diltiazem CD (24hr) [Cardizem CD] 120 mg PO DAILY 10/30/16 [History] Metoprolol Succinate 100 mg PO DAILY 10/30/16 [History] Prochlorperazine Maleate [Compazine] 10 mg PO Q8HR PRN #90 tablet 10/30/16 [Rx] Magnesium Oxide [Mag-Ox] 400 mg PO DAILY #30 tablet 12/06/16 [Rx] Hemp Oil 1 dropperful PO DAILY 02/14/17 [History] Lactobacillus Combination No.8 [Adult Probiotic] 1 each PO DAILY 05/23/17 [ History] Rivaroxaban [Xarelto] 20 mg PO DAILY 05/23/17 [History] Lipase/Protease/Amylase [Creon Dr 36,000 Units Capsule] 1 each PO TID #90 cap [Rx] Ferrous Sulfate [Iron] 325 mg PO BID 09/19/17 [History] Ibuprofen [Ibu] 600 mg PO TID PRN 09/19/17 [History] Cholestyramine 4 gm PO QID #120 powd.pack 09/23/17 [Rx] Loperamide [Imodium] 2 mg PO Q4HR PRN #50 capsule 09/23/17 [Rx] Furosemide [Lasix] 20 mg PO DAILY #30 tablet 09/25/17 [Rx] Allergies/Adverse Reactions: 3 Allergy/AdvReac Type Severity Reaction Status Date / Time duloxetine Allergy Intermediate Nausea Verified 09/06/17 09:20 Date of admission: 09/19/17 13:05 Primary care physician: Rene Jacob Jr, MD Consults: 09/19/17 14:00 Consult to Gastroenterology [CONS] Routine Consulting Provider: Gastroenterology [facility] Reason for Consult: diarrhea s/p whipple procedure for a month duration with positive c diff outpatient per patient. C diff here is negative Call Completed: Yes Discharging clinician: Carlos Noonan Anticipated date of discharge: 09/23/17 - Constitutional Vitals: Temp Pulse Resp BP Pulse Ox 97.9 F 76 16 115/72 96 07/09/18 14:54 09/23/17 14:54 09/23/17 14:54 09/23/17 14:54 09/23/17 14:54 General appearance: Present: cachectic - Respiratory Respiratory exam: Present: CTAB. Absent: accessory muscle use, rales, rhonchi, wheezes - Cardiovascular Cardiovascular exam: Present: RRR, +S1, +S2. Absent: diastolic murmur, gallop, rubs, systolic murmur - GI/Abdominal GI/Abdominal exam: Present: normal bowel sounds, soft, no peritoneal signs. Absent: distended, tenderness - Patient Status Disposition: Home Health Service Condition: Fair Overall status at discharge: patient is progressing back to baseline - Discharge Instructions Follow Up With: Rene Jacob Jr, MD [Primary Care Provider] - 09/30/17 11:00 am - Diet and Activity Activity: resume usual activities as tolerated - VTE Deep Vein Thrombosis/Pulmonary Embolism Present on Admission: No
--- NOTE | 2017-09-23 17:25 | Physician Discharge Referral ---
Home Health/Hosp Referral Info Transfer to: Home Health Attending Provider: Herbert Noonan Provider in Charge Post Discharge: PCP - Diagnosis (1) Diarrhea Priority: Primary Status: Acute (2) Pancreatic cancer Priority: Secondary Status: Chronic (3) Atrial fibrillation Priority: Secondary Status: Chronic (4) Hypothyroidism Priority: Secondary Status: Acute - Respiratory Orders Smoking Cessation: Smoking cessation has been advised. For more information, call the [place] Tobacco Quit Line at 1-388-EXRG-NOW. - Diet/Nutrition Diet/Nutrition Orders: Regular (Fluid restriction of 1800 ml per day..) - Activity Activity Orders: Ambulate - Services Needed Following services are medically necessary services: Nursing - Transfer Medications Prescriptions: Loperamide [Imodium] 2 mg PO Q4HR PRN #50 capsule PRN Reason: Diarrhea Cholestyramine 4 gm PO QID #120 powd.pack Home Medications: Levothyroxine [Synthroid] 100 mcg PO DAILY 07/15/15 [History] Diltiazem CD (24hr) [Cardizem CD] 120 mg PO DAILY 10/30/16 [History] Metoprolol Succinate 100 mg PO DAILY 10/30/16 [History] Prochlorperazine Maleate [Compazine] 10 mg PO Q8HR PRN #90 tablet 10/30/16 [Rx] Magnesium Oxide [Mag-Ox] 400 mg PO DAILY #30 tablet 12/06/16 [Rx] Hemp Oil 1 dropperful PO DAILY 02/14/17 [History] Lactobacillus Combination No.8 [Adult Probiotic] 1 each PO DAILY 05/23/17 [ History] Rivaroxaban [Xarelto] 20 mg PO DAILY 05/23/17 [History] Furosemide [Lasix] 20 mg PO DAILY #30 tablet 07/09/17 [Rx] Lipase/Protease/Amylase [Creon Dr 36,000 Units Capsule] 1 each PO TID #90 cap [Rx] Ferrous Sulfate [Iron] 325 mg PO BID 09/19/17 [History] Ibuprofen [Ibu] 600 mg PO TID PRN 09/19/17 [History] Cholestyramine 4 gm PO QID #120 powd.pack 09/23/17 [Rx] Loperamide [Imodium] 2 mg PO Q4HR PRN #50 capsule 09/23/17 [Rx] Allergies/Adverse Reactions: 3 Allergy/AdvReac Type Severity Reaction Status Date / Time duloxetine Allergy Intermediate Nausea Verified 09/06/17 09:20 Certification: Further, I certify that my clinical findings support that this patient is homebound (i.e. absences from home require considerable and taxing effort and are for medical reasons or anabaptist services or infrequently or short duration when for other reasons) because: Homebound Reason: Absences from home are contraindicated except to recieve medical care Attestation: My signature below is to certify that this patient is under my care and that I, or nurse practitioner, or a physician's bankruptcy legal assistant working with me, has a face-to -face encounter with this patient.
== END 2017-09-23 18:04 | disposition home health service (06) | DRG 392 ==
LOC: EMEROO 09:04 → 3ANU 09:04 → SUATTDRO 13:05 → 3ANU 13:56
PROVIDERS: ADMIT Student in an Organized Health Care Education/Training Program; ATTEND Internal Medicine